=== PATIENT | male | born 1995 | race Caucasian/White ===

== ENCOUNTER 2020-04-03 22:45 | Emergency (ER) | payer OTHER, SELFPAY ==
--- NOTE | ~2020-04-03 | CT_ITS ---
EXAMINATION: CT abdomen pelvis wo con DATE: 04/03/2020 23:22 INDICATION: Left flank pain TECHNIQUE: Computed tomography (CT) of the abdomen and pelvis was performed without intravenous contr ast. The dose-length product (DLP) was 289.34 mGy-cm. Automated exposure control and iterative recons truction technique were employed. COMPARISON: None FINDINGS: The lung bases are clear. The heart size is normal. The liver, spleen, pancreas, gallbladde r, and adrenal glands are normal. There is a 3 mm stone in the urinary bladder. There is subtle left perinephric fat stranding. The right kidney is unremarkable. No pathologically enlarged abdominal or pelvic lymph nodes are identified. There is no free intraperitoneal gas or evidence of bowel obstruct ion. The appendix is normal. IMPRESSION: 1. 3 mm stone of the urinary bladder and subtle left perinephric fat stranding, consistent with recen t passage of left-sided stone. Reviewed, dictated and finalized at location A. IMPRESSION: 1. 3 mm stone of the urinary bladder and subtle left perinephric fat stranding, consistent with recent passage of left-sided stone.
[2020-04-03 22:47] VITALS: BP 161/101; PULSE 91; RESP 15; TEMP 36.9; O2SAT 100
--- NOTE | 2020-04-03 23:00 | ED.ABDPAIN ---
HPI - Abdominal Pain General Chief Complaint: Abdominal Pain Stated Complaint: Kidney Stone Time Seen by Provider: 04/03/20 22:58 History of Present Illness HPI narrative: Pt c/o flank pain, /, sharp, non radiating, started tonight. Pt states he has a h/o kidney stones. Denies abd pain, n/v/d or fever. Denies hematuria. Related Data Allergies Allergy/AdvReac Type Severity Reaction Status Date / Time No Known Allergies Allergy Unverified 01/19/19 10:23 Review of Systems Review of Systems: All systems reviewed & are unremarkable except as noted in HPI and below Constitutional: Constitutional: Denies body ache(s), Denies chills, Denies excessive sweating, Denies fatigue, Denies fever(s), Denies headache(s), Denies lethargy, Denies malaise, Denies weakness and Denies weight loss Eyes: Eyes: Denies blurry vision, Denies change in vision and Denies loss of vision ENT: Denies dizziness, Denies ear discharge, Denies headache(s), Denies lip swelling, Denies epistaxis, Denies nasal congestion, Denies neck pain, Denies throat swelling and Denies tongue swelling Cardiovascular: Cardiovascular: Denies chest pain, Denies chest pain at rest, Denies chest pain with activity, Denies diaphoresis, Denies rapid heart rate, Denies edema, Denies irregular heart rhythm, Denies lightheadedness, Denies palpitations, Denies dyspnea and Denies dyspnea on exertion Respiratory: Respiratory: Denies chest congestion, Denies cough, Denies hemoptysis, Denies dyspnea and Denies dyspnea on exertion Gastrointestinal: Gastrointestinal: Denies abdominal pain, Denies melena, Denies hematochezia, Denies diarrhea, Denies nausea, Denies vomiting and Denies hematemesis Musculoskeletal: Musculoskeletal: Denies abnormal gait, Denies deformity, Denies joint swelling, Denies limited range of motion, Denies neck pain and Denies numbness Neurologic: Denies Abnormal speech present, Denies abnormal gait, Denies confusion, Denies dizziness, Denies headache(s), Denies focal weakness, Denies loss of vision, Denies numbness, Denies Other visual disturbances, Denies Sensory deficit (Neuro) and Denies weakness Psychiatric: Psychiatric: Denies confusion, Denies depression, Denies auditory hallucinations, Denies homicidal ideation and Denies suicidal ideation Endocrine: Endocrine: Denies cold intolerance, Denies excessive sweating, Denies fatigue, Denies heat intolerance and Denies palpitations Hematologic/Lymphatic: Hematologic/Lymphatic: Denies easy bleeding and Denies easy bruising Allergic/Immunologic: Allergic/Immunologic: Denies lip swelling, Denies throat swelling and Denies tongue swelling [facility] Social History Social History Gender identity (if verbalized by the patient): Male Exam Const: General: cooperative, healthy appearing, comfortable, no acute distress, well developed, alert and awake; No confusion Orientation/consciousness: oriented to person, oriented to place, oriented to time, patient oriented x3 and No confusion Limitations: no limitations HENMT: Head: normal to inspection, normocephalic and atraumatic Ears: hearing grossly normal bilaterally, TM normal on the right and TM normal on the left General nose exam: Normal external nose present, Normal nares present and No nasal discharge present Face and sinus: normal facial exam Mouth: Yes Normal oral and palatal mucosa present, Yes lip normal, Yes tongue normal and Yes oropharynx normal Throat: posterior oropharynx normal, tonsils normal and uvula midline Eyes: General: appearance normal, both eyes and all related structures Pupils: Equal, round and reactive pupils present EOM: EOMs intact bilaterally Neck: Neck: normal visual inspection, full ROM, no lymphadenopathy and no meningeal signs Chest: Chest palpation & inspection: normal inspection of the chest Resp: Effort & Inspection: normal respiratory effort, able to speak in complete sentences, no respiratory distress and not tachypneic Auscultation: c
[2020-04-03] MEDS: SODIUM CHLORIDE 0.9% IV 1,000 ML 999 ML IV CONT (23:13)
[2020-04-03] MEDS: KETOROLAC 30 MG/ML VIAL (*BKC) IV PUSH (23:13)
[2020-04-03 23:16] LABS: Basophils Absolute Auto 0.1 K/mm3 (0.0-0.1); Basophils Percent Auto 0.6 % (0.2-1.2); Eosinophils Absolute Auto 0.1 K/mm3 (0-0.3); Eosinophils Percent Auto 0.8 % (0-4.4); Hemoglobin 13.9 g/dL (14.0-18.0); Immature Granulocyte Absolute 0.03 K/mm3 (0.00-0.031); Immature Granulocyte Percent A 0.3 % (0-0.5); Lymphocytes Absolute Auto 3.93 K/mm3 (0.9-3.2); Lymphocytes Percent Auto 38.9 % (18.3-44.2); Mean Corpuscular HGB Conc 34.8 g/dl (32-36); Mean Corpuscular Hemoglobin 29.3 pg (26-34); Mean Corpuscular Volume 84.2 fl (80-100); Mean Platelet Volume 10.2 fl (7.4-10.4); Monocytes Absolute Auto 0.8 K/mm3 (0.1-0.6); Monocytes Percent Auto 7.8 % (2.6-8.5); Neutrophils Absolute Auto 5.2 K/mm3 (1.3-6.7); Neutrophils Percent Auto 51.6 % (45.5-73.1); Platelet Count Result 257 k/mm3 (150-375); Red Blood Count 4.75 M/mm3 (4.6-6.20); Red Cell Distribution Width 11.8 % (11.5-14.5); White Blood Count 10.1 K/mm3 (4.5-10.0)
[2020-04-03 23:29] LABS: Alanine Aminotransferase 42 U/L (4-50); Albumin Level 4.6 g/dL (3.5-5.1); Alkaline Phosphatase 53 U/L (38-126); Anion Gap 9 mmol/L (8-16); Aspartate Amino Transferase 99 U/L (17-59); Bilirubin,Total 0.6 mg/dL (0.2-1.3); Blood Urea Nitrogen 19 mg/dL (9-20); Calcium 9.6 mg/dL (8.4-10.2); Carbon Dioxide 27 mmol/L (22-30); Chloride 102 mmol/L (98-107); Estimated Glomerular Filt Rate > 60; Glucose 109 mg/dL (75-110); Lipase 82 U/L (23-300); Potassium 3.3 mmol/L (3.4-5.0); Sodium 138 mmol/L (137-145)
[2020-04-03 23:46] VITALS: BP 100/67; PULSE 84; RESP 12; O2SAT 99
== END 2020-04-04 00:15 | disposition home or self-care (01) ==
PROVIDERS: Emergency Provider Emergency Medicine; PCP Internal Medicine
DX: R10.84 Generalized abdominal pain (principal); N13.9 Obstructive and reflux uropathy, unspecified
CPT/HCPCS: 36415; 74176; 80053; 83690; 85025; 96361; 96374; 99284; J1885; J7030

== ENCOUNTER 2021-12-31 17:30 | Emergency (ER) | payer OTHER, SELFPAY ==
--- NOTE | 2021-12-31 17:31 | ED.URI ---
HPI - URI/Sore Throat General Chief Complaint: Upper Respiratory Infection Stated Complaint: fever chills aches stuffy nose Time Seen by Provider: 12/31/21 17:31 Source: patient, family and RN notes reviewed History of Present Illness HPI Narrative: Patient is a 26-year-old male who presents the urgent care with his mother with complaints of fever, chills and stuffy nose. Patient states that started yesterday afternoon with fatigue. Patient has been taking Advil for the fevers but has not treated himself since 9 AM this morning. Patient also reports of a headache. States that his fianc?e in the home is also feeling ill but denies of any known exposures. Patient did attend a large wedding this weekend. Patient took a rapid COVID test at home, which was negative. Denies of sore throat, shortness of breath, nausea, vomiting. No other acute complaints. No acute distress noted. Patient aware of the plan of care. Some parts of this dictation were generated by voice recognition software and may contain typographical and/or grammatical inaccuracies. Related Data Home Medications Medication Instructions Recorded Confirmed No Home Medications 12/31/21 12/31/21 Allergies Allergy/AdvReac Type Severity Reaction Status Date / Time No Known Allergies Allergy Unverified 01/19/19 10:23 Review of Systems Review of Systems: CONSTITUTIONAL: Reports a fever and fatigue EYES: Denies visual changes, redness, or discharge. ENT: Reports of nasal congestion, rhinorrhea CARDIOVASCULAR: Denies chest pain, palpitations, or edema. RESPIRATORY: Denies cough or dyspnea. GASTROINTESTINAL: Denies abdominal pain, nausea, vomiting, or diarrhea. GENITOURINARY: Denies dysuria or hematuria. SKIN: Denies rash or itching. MUSCULOSKELETAL: Denies back pain, joint pain, or myalgia. NEUROLOGIC: Reports of headache All other systems reviewed are negative, except as documented in HPI. PMFSH Social History Social History Gender identity (if verbalized by the patient): Male Comments At the time of my signature, I reviewed and agree with the nursing past medical, surgical, social, and family history. There is no relevant family history pertinent to the patient complaint. Exam Narrative: GENERAL: This is a well-nourished, well-developed patient, in no apparent distress. HEAD: normocephalic, atraumatic. EYES: PERRL. Sclera clear/white. Vision is grossly intact. EARS: External ears normal, auditory canals clear and without drainage, TMs normal without perforation. Hearing grossly intact. NOSE: External nose normal with no obvious nasal discharge. Mild bilateral erythemic nares with clear to yellow rhinorrhea THROAT: Mucous membranes moist, posterior pharynx clear. Moderate postnasal drainage. NECK: Neck supple, non-tender without lymphadenopathy CARDIOVASCULAR: Regular rate and rhythm without murmurs, gallops, or rubs. RESPIRATORY: Clear to auscultation. Breath sounds equal bilaterally. No wheezes, rales, or rhonchi. SKIN: warm, intact with no suspicious lesions or rash, good texture and turgor. NEURO: awake, alert, and oriented to person, place and time. There were no obvious focal neurologic abnormalities. EXTREMITIES: No clubbing, cyanosis, or edema. Course Course Level of Care: Express Care Visit Vital Signs Vital signs: Vital Signs Temperature 101.8 F H 12/31/21 17:36 Pulse Rate 120 H 12/31/21 17:36 Respiratory Rate 18 12/31/21 17:36 Blood Pressure 102/77 12/31/21 17:36 Pulse Oximetry 100 12/31/21 17:36 Temperature 101.8 F H 12/31/21 17:36 Pulse Rate 120 H 12/31/21 17:36 Respiratory Rate 18 12/31/21 17:36 Blood Pressure 102/77 12/31/21 17:36 Pulse Oximetry 100 12/31/21 17:36 Reviewed MDM - URI/Sore Throat MDM Narrative Medical decision making narrative: Reviewed lab results with the patient. He is aware that flu swab was negative. Considering you just took a rapid COVID test that was negative, erika
[2021-12-31 17:36] VITALS: BP 102/77; PULSE 120; RESP 18; TEMP 38.8; O2SAT 100
[2021-12-31 21:00] LABS: SARS-CoV-2 RNA PCR Positive
== END 2021-12-31 18:08 | disposition home or self-care (01) ==
PROVIDERS: Emergency Provider Nurse Practitioner Family; PCP Internal Medicine
DX: Z20.822 Contact with and (suspected) exposure to COVID-19 (principal)
CPT/HCPCS: 87804; 99212; 99213; C9803; G0463; U0003; U0005

== ENCOUNTER 2022-11-13 08:16 | Emergency (ER) | payer OTHER, SELFPAY ==
--- NOTE | ~2022-11-13 | XR_ITS ---
EXAMINATION: XR abdomen/kub 1V DATE: 11/13/2022 10:02 INDICATION: Right groin pain TECHNIQUE: A supine view of the abdomen was obtained. COMPARISON: None. FINDINGS: No suspicious calcifications suspicious for urolithiasis in the abdomen or pelvis. Small amount of ga s scattered throughout primarily colon with no dilated loops of gas-filled bowel to suggest obstructi on. There is bilateral decreased femoral head neck offset. IMPRESSION: 1. Normal bowel gas pattern with no calcific lesions suspicious for urolithiasis. 2. Bilateral decreased femoral head neck offset offset which could predispose towards cam-type femora l acetabular impingement. Reviewed, dictated and finalized at location B. IMPRESSION: 1. Normal bowel gas pattern with no calcific lesions suspicious for urolithiasi s. 2. Bilateral decreased femoral head neck offset offset which could predispose t owards cam-type femoral acetabular impingement.
[2022-11-13 08:17] VITALS: BP 136/77; PULSE 97; RESP 18; TEMP 36.3; O2SAT 100
[2022-11-13 09:48] LABS: Appearance Urine Clear (Clear); Bacteria Urine None Seen /hpf; Bilirubin Urine Negative (Negative); Blood Urine 3+ (Negative); Color Urine Yellow (Yellow); Glucose Urine UA Negative (Negative); Ketones Urine Trace mg/dL (Negative); Leukocyte Esterase Ur Negative LEU/UL (Negative); Nitrate Urine Negative (Negative); Non Pathogenic Casts 0-2; Protein Urine Trace mg/dL (Negative); RBC Urine 51-100 /hpf (0-2); Specific Grav Ur 1.024 (1.001-1.035); Squamous Epithelial Cell Urine None seen /hpf (Few); WBC Urine 0-5 /hpf
[2022-11-13 09:59] LABS: Add Urine Microscopic? YES
--- NOTE | 2022-11-13 11:17 | ED.MALEGU ---
HPI - Male Genitourinary General Chief complaint: Urogenital-Male Stated complaint: right sided flank pain Time Seen by Provider: 11/13/22 08:18 History of Present Illness HPI Narrative: Patient is a 27-year-old male who presents ER with right-sided flank pain. Has history of potential kidney stones. Started earlier this morning after about an hour pain increased. He began having cramping in his lower abdomen. No hematuria or dysuria. No fevers or chills but did have some nausea. Symptoms resolved upon arrival here. Related Data Allergies Allergy/AdvReac Type Severity Reaction Status Date / Time No Known Allergies Allergy Verified 11/13/22 08:17 Review of Systems Constitutional: Constitutional: Denies chills, Denies fatigue and Denies fever(s) Gastrointestinal: Gastrointestinal: Reports abdominal pain, Denies diarrhea, Reports nausea and Denies vomiting Genitourinary: Genitourinary: Denies hematuria, Denies dysuria, Denies testicular pain and Reports urinary frequency PMFSH Social History Social History Gender identity (if verbalized by the patient): Male Exam Narrative: GENERAL: Well-appearing, well-nourished, and in no acute distress. HEAD: Normocephalic, atraumatic. ENT: Mucous membranes moist. CHEST: Clear to auscultation. No respiratory distress. HEART: Regular rate and rhythm. Normal peripheral pulses. ABDOMEN: Soft, nontender, nondistended. EXTREMITIES: Normal range of motion. No edema. SKIN: Warm, dry, no rash. NEURO: Alert and oriented x3. PSYCH: Normal mood and affect. Course Course Emergency Course: No stone on KUB. Urine with blood. Discussed CT imaging versus conservative management at home and patient opted for conservative management. Vital Signs Vital signs: Vital Signs Temperature 97.4 F L 11/13/22 08:17 Pulse Rate 97 11/13/22 08:17 Respiratory Rate 18 11/13/22 08:17 Blood Pressure 136/77 11/13/22 08:17 Pulse Oximetry 100 11/13/22 08:17 Oxygen Delivery Room Air 11/13/22 08:17 Temperature 97.4 F L 11/13/22 08:17 Pulse Rate 97 11/13/22 08:17 Respiratory Rate 18 11/13/22 08:17 Blood Pressure 136/77 11/13/22 08:17 Pulse Oximetry 100 11/13/22 08:17 Oxygen Delivery Room Air 11/13/22 08:17 MDM - Male Genitourinary Lab Data Labs: Lab Results 11/13/22 Range/Units 09:32 Urine Color Yellow (Yellow) Urine Appearance Clear (Clear) Urine pH 6.0 (5.0-9.0) Ur Specific Rippey 1.024 (1.001-1.035) Urine Protein Trace (Negative) mg/dL Urine Glucose (UA) Negative (Negative) mg/dL Urine Ketones Trace H (Negative) mg/dL Ur Blood (Man) 3+ H (Negative) Urine Nitrate Negative (Negative) Urine Bilirubin Negative (Negative) Urine Urobilinogen 1.0 (<2.0) mg/dL Leukocyte Esterase Rfl Negative (Negative) MAGDALENO/UL Urine RBC 51-100 (0-2) /hpf Urine WBC 0-5 /hpf Ur Squamous Epith Cells None seen (Few) /hpf Urine Bacteria None seen /hpf Urine Casts 0-2 Imaging Data Radiologist's impression: ITS Impressions Abdomen X-Ray 11/13/22 10:15 IMPRESSION: 1. Normal bowel gas pattern with no calcific lesions suspicious for urolithiasis. 2. Bilateral decreased femoral head neck offset offset which could predispose towards cam-type femoral acetabular impingement. Discharge Plan Discharge Clinical Impression: Kidney stone Patient Disposition: Home, Self-Care Condition: Stable Instructions: Kidney Stones (ED), How to Strain Your Urine (ED) Additional Instructions: It is felt that you have passed a small kidney stone causing your pain. You are being provided supportive medications for when you have this discomfort at home. Recommend follow-up with urology. Return to the ER if you have severe worsening pain, you cannot keep down food/water/medication, or you have additional concerns. Prescriptions: New hydrocodone-acetaminophen 5-325 mg tablet 1 tab
== END 2022-11-13 11:49 | disposition home or self-care (01) ==
PROVIDERS: Emergency Provider Emergency Medicine; PCP Internal Medicine; Referring Provider Urology
DX: N20.0 Calculus of kidney (principal); R93.7 Abnormal findings on diagnostic imaging of other parts of musculoskeletal system
CPT/HCPCS: 74018; 81001; 99283

== ENCOUNTER 2023-10-20 00:42 | Emergency (ER) | payer OTHER, SELFPAY ==
--- NOTE | ~2023-10-20 | CT_ITS ---
CT of the Abdomen and Pelvis: Indication: Abdominal pain Technique: 2.5 mm axial scans were obtained through the abdomen and pelvis following intravenous adm inistration of 100 cc of Omnipaque 350. Dose reduction technique was used on this scan by utilizing a utomated exposure control and iterative reconstruction technique. The dose-length product (DLP) was 6 71.48 mGy-cm. Findings: Scans through the lung bases are unremarkable. The liver, spleen, pancreas, gallbladder, adrenals and kidneys are within normal limits. No evidence of aortic aneurysm. No lymphadenopathy. Persistent left IVC noted. No bowel obstruction or bowel wall thickening. There is no evidence to suggest acute appendicitis. Images through the pelvis were performed. There is a 2 mm stone at the right UVJ. No pelvic mass seen . No ascites. Impression: 2 mm stone at the right UVJ. No significant hydronephrosis. Reviewed, dictated and finalized at [facility]. Impression: 2 mm stone at the right UVJ. No significant hydronephrosis.
[2023-10-20 00:45] VITALS: BP 124/82; PULSE 62; RESP 18; TEMP 37.2; O2SAT 100
[2023-10-20] MEDS: SODIUM CHLORIDE 0.9% IV 1,000 ML 999 ML IV CONT (01:23)
[2023-10-20 01:31] LABS: Basophils Percent Auto 0.7 % (0.2-1.2); Eosinophils Absolute Auto 0.1 K/mm3 (0-0.3); Eosinophils Percent Auto 1.5 % (0-4.4); Hemoglobin 12.8 g/dL (14.0-18.0); Immature Granulocyte Absolute 0.01 K/mm3 (0.00-0.031); Immature Granulocyte Percent A 0.2 % (0-0.5); Lymphocytes Absolute Auto 2.41 K/mm3 (0.9-3.2); Lymphocytes Percent Auto 40.3 % (18.3-44.2); Mean Corpuscular HGB Conc 33.7 g/dl (32-36); Mean Corpuscular Hemoglobin 29.2 pg (26-34); Mean Corpuscular Volume 86.8 fl (80-100); Mean Platelet Volume 10.1 fl (7.4-10.4); Monocytes Absolute Auto 0.5 K/mm3 (0.1-0.6); Monocytes Percent Auto 7.9 % (2.6-8.5); Neutrophils Percent Auto 49.4 % (45.5-73.1); Platelet Count Result 217 k/mm3 (150-375); Red Blood Count 4.38 M/mm3 (4.6-6.20)
--- NOTE | 2023-10-20 01:39 | ED.GENADULT ---
HPI - General Adult General Chief complaint: Abdominal Pain Stated complaint: abd pain Time Seen by Provider: 10/20/23 00:59 History of Present Illness HPI narrative: The patient is a 28-year-old gentleman who presents emergency department with chief complaint of abdominal pain and constipation patient reports that he has pain in the lower abdomen radiates to his back patient reports he has prior history of kidney stones Related Data Allergies Allergy/AdvReac Type Severity Reaction Status Date / Time No Known Allergies Allergy Verified 11/13/22 08:17 Review of Systems Review of Systems: A 10 system review of systems was completed on the patient and is negative except for what is stated in the HPI. Nursing and ancillary documentation was reviewed. [facility] Social History Social History Gender identity (if verbalized by the patient): Male Exam Narrative: GENERAL: Well-appearing, well-nourished, and in no acute distress. HEAD: Normocephalic, atraumatic. EYES: PERRLA and EOMI. ENT: Nares clear, no rhinorrhea or epistaxis. Mucous membranes moist. NECK: Supple. CHEST: Clear to auscultation. No respiratory distress. HEART: Regular rate and rhythm. No murmur heard. Normal peripheral pulses. ABDOMEN: Soft, nontender, nondistended, normal active bowel sounds. EXTREMITIES: Normal range of motion. No edema. SKIN: Warm, dry, no rash. NEURO: No focal deficits. Alert and oriented x3. PSYCH: Normal mood and affect. Course Vital Signs Vital signs: Vital Signs Temperature 37.2 C 10/20/23 00:45 Pulse Rate 62 10/20/23 00:45 Respiratory Rate 18 10/20/23 00:45 Blood Pressure 124/82 10/20/23 00:45 Pulse Oximetry 100 10/20/23 00:45 Oxygen Delivery Room Air 10/20/23 00:45 Temperature 37.2 C 10/20/23 00:45 Pulse Rate 62 10/20/23 00:45 Respiratory Rate 18 10/20/23 00:45 Blood Pressure 124/82 10/20/23 00:45 Pulse Oximetry 100 10/20/23 00:45 Oxygen Delivery Room Air 10/20/23 00:45 Medical Decision Making [facility] Narrative Medical decision making narrative: Differential diagnosis includes ureterolithiasis, UTI, intra-abdominal infection, bowel obstruction Laboratory studies were obtained on the patient showed a white count 6.0 electrolytes are within normal limits urinalysis showed 11-[address] scan of the abdomen pelvis showed a 2 mm calculi in the right ureter orifice causing hydroureteronephrosis Vital Signs Vital Signs: Vital Signs Temperature 37.2 C 10/20/23 00:45 Pulse Rate 62 10/20/23 00:45 Respiratory Rate 18 10/20/23 00:45 Blood Pressure 124/82 10/20/23 00:45 Pulse Oximetry 100 10/20/23 00:45 Oxygen Delivery Room Air 10/20/23 00:45 Temperature 37.2 C 10/20/23 00:45 Pulse Rate 62 10/20/23 00:45 Respiratory Rate 18 10/20/23 00:45 Blood Pressure 124/82 10/20/23 00:45 Pulse Oximetry 100 10/20/23 00:45 Oxygen Delivery Room Air 10/20/23 00:45 Lab Data 10/20/23 01:25 10/20/23 01:25 Labs: Lab Results 10/20/23 10/20/23 Range/Units 01:25 02:27 WBC 6.0 (4.5-10.0) K/mm3 RBC 4.38 L (4.6-6.20) M/mm3 Hgb 12.8 L (14.0-18.0) g/dL Hct 38.0 L (42.0-52.0) % MCV 86.8 (80-100) fl MCH 29.2 (26-34) pg MCHC 33.7 (32-36) g/dl RDW 12.0 (11.5-14.5) % Plt Count 217 (150-375) k/mm3 MPV 10.1 (7.4-10.4) fl Immature Gran % (Auto) 0.2 (0-0.5) % Neut % (Auto) 49.4 (45.5-73.1) % Lymph % (Auto) 40.3 (18.3-44.2) % Grand % (Auto) 7.9 (2.6-8.5) % Eos % (Auto) 1.5 (0-4.4) % Baso % (Auto) 0.7 (0.2-1.2) % Lymph # (Auto) 2.41 (0.9-3.2) K/mm3 Grand # (Auto) 0.5 (0.1-0.6) K/mm3 Eos # (Auto) 0.1 (0-0.3) K/mm3 Baso # (Auto) 0.0 (0.0-0.1) K/mm3 Abs Immat Gran (auto) 0.01 (0.00-0.031) K/mm3 Absolute Neuts (auto) 3.0 (1.3-6.7) K/mm3 Absolute Nucleated RBC
[2023-10-20 01:41] LABS: Alanine Aminotransferase 17 U/L (6-50); Albumin Level 4.6 g/dL (3.5-5.1); Alkaline Phosphatase 51 U/L (38-126); Anion Gap 5 mmol/L (4-12); Aspartate Amino Transferase 24 U/L (17-59); Bilirubin,Total 0.9 mg/dL (0.2-1.3); Blood Urea Nitrogen 15 mg/dL (9-20); Calcium 9.6 mg/dL (8.4-10.2); Carbon Dioxide 27 mmol/L (22-30); Chloride 107 mmol/L (98-107); Estimated CRCL calculation 122 ml/min; Estimated Glomerular Filt Rate > 60; Glucose 100 mg/dL (65-110); Lipase 54 U/L (23-300); Potassium 3.6 mmol/L (3.4-5.0); Sodium 139 mmol/L (137-145)
[2023-10-20 02:42] LABS: Appearance Urine Clear (Clear); Bacteria Urine None Seen /hpf; Bilirubin Urine Negative (Negative); Blood Urine 2+ (Negative); Color Urine Yellow (Yellow); Glucose Urine UA Negative (Negative); Ketones Urine Negative (Negative); Leukocyte Esterase Ur Negative LEU/UL (Negative); Nitrate Urine Negative (Negative); Non Pathogenic Casts 0-2; Protein Urine Negative (Negative); Specific Grav Ur 1.024 (1.001-1.035); Squamous Epithelial Cell Urine None Seen /hpf (Few); Urobilinogen Urine 0.2 mg/dL (<2.0); WBC Urine 0-5 /hpf (0-3)
[2023-10-20 02:46] LABS: Add Urine Microscopic? YES
[2023-10-20] MEDS: TAMSULOSIN HCL 0.4 MG CAPSULE PO (04:32)
[2023-10-20] MEDS: HYDROcodone/acetaminophen (*CRX) 5-325 MG TABLET 1 TAB PO (04:33)
[2023-10-20] MEDS: ONDANSETRON INJ 4 MG/2 ML VIAL IV PUSH (04:42)
[2023-10-20 04:45] VITALS: BP 121/78; PULSE 55; RESP 14; O2SAT 98
== END 2023-10-20 04:49 | disposition home or self-care (01) ==
PROVIDERS: Emergency Provider Emergency Medicine; PCP Internal Medicine
DX: N20.1 Calculus of ureter (principal)
CPT/HCPCS: 36415; 74177; 80053; 81001; 83690; 85025; 96361; 96374; 99284; A9270; J2405; J7030; Q9967

== ENCOUNTER 2024-03-06 00:18 | Day surgery (SDC) | payer OTHER, SELFPAY ==
[2024-02-16 12:57] VITALS: BMI 28.3
[2024-03-06 10:08] VITALS: BP 107/66; PULSE 66; RESP 18; TEMP 36.1; O2SAT 100
[2024-03-06] MEDS: LACTATED RINGERS 1,000 ML 150 ML IV CONT (10:17)
--- NOTE | 2024-03-06 10:30 | P.PNAN_ITS ---
Anes - Initial Pre Proc Eval Procedure: Operation Date: 03/06/24 12:30 Proposed Procedures p Colonoscopy - Eddie Rodriguez MD Date/Time: 03/06/24 10:30 Surgeon: Eddie Rodriguez MD Pre Op Diagnosis: Unspecified abdominal pain, change in bowel habit Patient Data Age: 29 Gender: M Height: 1.88 m Weight: 95.3 kg Last Vital Signs Temp 97 F L 03/06/24 10:08 Pulse 66 03/06/24 10:08 Resp 18 03/06/24 10:08 BP 107/66 03/06/24 10:08 Pulse Ox 100 03/06/24 10:08 O2 Del Method Room Air 03/06/24 10:08 Allergies Allergy/AdvReac Type Severity Reaction Status Date / Time No Known Allergies Allergy Verified 03/06/24 10:07 Home Medications Medication Instructions Recorded Confirmed Type alfuzosin 10 mg tablet,extended 10 mg PO HS 02/16/24 03/06/24 History release 24 hr Patient hx anesthesia problems: none Family hx anesthesia problems: none Results Review: All pre-operative results and documents have been reviewed as part of the pre- operative evaluation. [facility] Social History Social History Smoking status: Never smoker Alcohol intake: never Substance use: never Substance use type: does not use Living arrangements: with family Gender identity (if verbalized by the patient): Male Spiritual care concerns: No Anes - Eval Final PreProcedure Day of Procedure 03/06/24 10:30 Patient weight: normal Heart: regular rate and rhythm Lungs: clear to auscultation Airway: Mallampati scale class II Neurological: alert and oriented Last oral intake: >/= 8 hours ASA classification: II Emergent: no Anesthetic plan: proceed Anesthesia type and monitoring: general GIVS and standard monitoring Results Review: All pre-operative results and documents have been reviewed as part of the pre- operative evaluation. Informed Consent: The patient's anesthetic plan and its attendant risks and benefits were discussed with the patient/family/POA. Questions were solicited and answers provided to the satisfaction of the patient/family/POA.
--- NOTE | 2024-03-06 10:54 | PM.HPGS ---
History of Present Illness History of Present Illness Consent: Risks, benefits, and alternatives have been discussed and questions answered. Patient agrees to proceed with procedure. Chief complaint: Unspecified abdominal pain, change in bowel habit Narrative: Bhupendra Parikh is a 29 year old male with change bowel habit last few months, never had colonoscopy Review of Systems Review of Systems: All systems reviewed & are unremarkable except as noted in HPI and below PMFSH Social History Social History Smoking status: Never smoker Alcohol intake: never Substance use: never Substance use type: does not use Living arrangements: with family Gender identity (if verbalized by the patient): Male Spiritual care concerns: No Meds Home Medications and Allergies Home Medications Medication Instructions Recorded Confirmed Type alfuzosin 10 mg tablet,extended 10 mg PO HS 02/16/24 03/06/24 History release 24 hr Allergies Allergy/AdvReac Type Severity Reaction Status Date / Time No Known Allergies Allergy Verified 03/06/24 10:07 Vital Signs Vital Signs - 24 hr 03/06/24 10:08 Temperature 97 F L Pulse Rate 66 Respiratory Rate 18 Blood Pressure 107/66 Pulse Oximetry 100 Oxygen Delivery Room Air Exam Const: General: comfortable and no acute distress HENMT: Face/Nose/Sinus: Normal nares present Eyes: General: appearance normal, both eyes and all related structures Neck: Neck: no JVD Resp: Auscultation: clear to auscultation bilaterally Cardio: Rate: regular rate Rhythm: regular rhythm GI: Inspection: non-distended GI Palp: Yes Soft to palpation Skin: General skin exam: normal color Neuro: General: gait normal Speech: normal speech Extrem: General: normal to inspection Psych: Mental Status: mental status grossly normal Assessment and Plan Assessment and plan (1) Change in bowel habits: Code(s): R19.4 - Change in bowel habit Status: Acute Assessment and Plan: colonoscopy
[2024-03-06 11:09] VITALS: BP 109/68; PULSE 81; RESP 18; O2SAT 99
[2024-03-06 11:19] VITALS: BP 99/66; PULSE 87; RESP 18; O2SAT 98
[2024-03-06 11:29] VITALS: BP 100/57; PULSE 70; RESP 22; O2SAT 100
== END 2024-03-06 11:40 | disposition home or self-care (01) ==
PROVIDERS: PCP Internal Medicine; Referring Provider Nurse Practitioner; Visit Provider Internal Medicine Gastroenterology
PROC: 0DJD8ZZ Inspection of Lower Intestinal Tract, Via Natural or Artificial Opening Endoscopic (ICD-10-PCS; CPT 45378; principal; 2024-03-06 12:30)
DX: K64.8 Other hemorrhoids (principal)
CPT/HCPCS: 45380; 88305; J2704; J7120

== ENCOUNTER 2024-11-18 16:31 | Emergency (ER) | payer OTHER, SELFPAY ==
[2024-11-18] VITALS (9 sets, daily range): BP systolic 114–134; BP diastolic 73–86; PULSE 73–95; RESP 10–20; TEMP 36.5; O2SAT 91–100
--- NOTE | ~2024-11-18 | CT_ITS ---
CT abdomen pelvis wo con Ordering provider: Lesly Galvan PA-C History: 29 years Male with . LLQ pain . Comparison: None. Technique: CT abdomen and pelvis without IV and without oral contrast. Automated exposure control and iterative reconstruction technique were employed. The dose-length product was 285.31 mGy-cm. Findings: VISUALIZED LOWER CHEST: Normal. UPPER ABDOMINAL ORGANS: Liver: Normal. Gallbladder: Possible tiny stone in the neck of the gallbladder. Ultrasound evaluation advised. Spleen: Normal. Stomach/duodenum: Normal. Pancreas: Normal. Adrenals: Normal. Kidneys: Stone in the left lower ureter is seen measuring 3 mm. Mild fullness of the left ureter and renal pelvis is noted. Tiny stone in the right kidney midpole. Tiny stone in the left kidney midpole. PELVIC ORGANS: The bladder is normal. BOWEL AND MESENTERY: Colon: No evidence of diverticulitis.. Normal appendix. Small Bowel: Normal. No obstruction. Peritoneum/mesentery: No free air or free fluid. No mesenteric lymphadenopathy. Small mesenteric lymp h nodes RETROPERITONEUM: Normal aorta. No retroperitoneal lymphadenopathy. MUSCULOSKELETAL: Superficial soft tissues: The superficial soft tissues are normal. Bones: Normal spine. IMPRESSION: 1. Highly suggestive tiny stone in the left lower ureter with mild left ureter fullness. Follow-up and clinical correlation advised. 2. Bilateral tiny kidney stones. 3. No evidence of appendicitis, diverticulitis or intestinal obstruction. Reviewed, dictated and finalized at location A. IMPRESSION: 1. Highly suggestive tiny stone in the left lower ureter with mild left urete r fullness. Follow-up and clinical correlation advised. 2. Bilateral tiny kidney stones. 3. No evidence of appendicitis, diverticulitis or intestinal obstruction.
--- OUTSIDE RECORDS SUMMARY | 2024-11-18 16:33 | XMS_ITS | Clinical Summary ---
Author Organization [facility] Address [address] [id number] Phone Care Team Providers Care Cane Piler Name Role Phone Unavailable Primary Care Provider Unavailabl e Encounters Date Type Department Care Team Description 08/30/2024 External Device Data [facility] ABSTRACTION Provider, Abstract from Last 3 Months Social History Tobacco Use Types Packs/Day Years Used Date Smoking Tobacco: Never Assessed Sex and Gender Information Value Date Recorded Sex Assigned at Not on file Legal Sex Male 12:22 PM CDT Gender Identity Not on file Sexual Orientation Not on file Plan of Treatment Health Maintenance Due Date Last Done Comments DTAP/TDAP/TD VACCINES (1 - Tdap) 01/10/2012 HEPATITIS B VACCINES (1 of 3 - 19+ 3-dose series) 01/10/2012 INFLUENZA VACCINE (#1) 2024 04/20/2018 HPV VACCINES Aged Out No longer eligi ble based on patient's age to complete this topic Insurance [employer] [facility] OPEN ACCESS
--- OUTSIDE RECORDS SUMMARY | 2024-11-18 16:33 | XMS_ITS | Clinical Summary ---
Author Organization [facility] Address [address] [place] [address] Phone Care Team Providers Care Customer Success Representative Name Role Phone Boy Cano MD Primary Care Provider [phone] Kevin Javier MD Unavailable Allergies No known active allergies Family History Medical History Relation Name Comments Kidney Stones Father Relation Name Status Comments Father Social History Tobacco Use Types Packs/Day Years Used Date Smoking Tobacco: Never Smokeless Tobacco: Never Alcohol Use Standard Drinks/Week Comments Yes 0 (1 standard drink = 0.6 oz pur e alcohol) occastional Sex and Gender Information Value Date Recorded Sex Assigned at Not on file Legal Sex Male 9:18 AM CDT Gender Identity Not on file Sexual Orientation Not on file Last Filed Vital Signs Vital Sign Reading Time Taken Comments Blood Pressure 131/79 08/18/2023 8:32 AM [employer] Pulse 83 08/18/2023 8:32 AM [employer] Temperature 36.6 C (97.9 F) 08/18/2023 8:32 AM [employer] Respiratory Rate 14 08/18/2023 8:32 AM [employer] Oxygen Saturation 98% 08/18/2023 8:32 AM [employer] Inhaled Oxygen Concentration - - Weight 101.3 kg (223 lb 6.4 oz) 08/18/2023 8:32 AM [employer] Height 188 cm (6' 2 ) 08/18/2023 8:32 AM [employer] Body Mass Index 28.68 08/18/2023 8:32 AM [employer] Plan of Treatment Health Maintenance Due Date Last Done Comments Hepatitis C Virus (HCV) Screening 1993 Hepatitis B Immunization (3 of 3 - 3-dose series) 1993 1993, 1993 Influenza Immunization (#1) 2024 SARS-COV-2 Immunization ( season) 2024 11/22/2020, 11/01/2020 Respiratory Syncytial Virus (RSV) Immunization (Adult) (1 - 1-dose 75+ series) 01/10/2068 Meningococcal Immunization (ACWY) Aged Out 04/11/2005 No longer eligible based on patient's age to complete this topic DTaP/Tdap/Td Immunization Discontinued 2006, 03/03/2003, 11/22/1997, Additional history exists TdaP Immunization Completed 01/11/2007 Pneumococcal Immunization Combined Aged Out No longer eligible based on patient's age to complete this topic Rotavirus Immunization Aged Out No lo nger eligible based on patient's age to complete this topic Insurance Via Care Teams Customer Success Representative Relationship Specialty Start Date End Date Boy Cano MD [address] [place] [address] [address] [place] [address] PCP - General Internal Medicine 08/18/23 Kevin Javier MD [address] [address] Consulting Physician Urological Surgery 08/18/23
--- OUTSIDE RECORDS SUMMARY | 2024-11-18 16:33 | XMS_ITS | Data Portability ---
Author Organization MD - [facility], Main Office Address [address] [place] [address] Assessment No assessment recorded. Plan of Treatment Reminders Order Date Submit Date Provider Last Modified By Organization Details Last Modified Time Details Appointments None recorded. Lab CMP, serum or plasma 2024 025 [email or web address] [facility], [address], [place], [address], 5 16:15:18 CBC w/ auto diff 2024 025 [email or web address] [facility], [address], [place], [address], 5 16:15:18 lipid panel, serum 2024 025 [email or web address] [facility], [address], [place], [address], 5 16:15:18 T4, free, serum 2024 025 [email or web address] [facility], [address], [place], [address], 5 16:15:18 TSH, serum or plasma 2024 025 [email or web address] [facility], [address], [place], [address], 5 16:15:18 pancreatic elastase, stool 2023 024 [id number] [facility], [address], [place], [address], 4 10:08:25 CBC w/ auto diff 2023 024 [email or web address] [facility], [address], [place], [address], 4 10:08:26 inflammator y bowel disease Ab panel, serum 2023 024 [email or web address] [facility], [address], [place], [address], 4 03:31:58 C-reactive protein, quantitativ e, serum or plasma 2023 024 [email or web address] [facility], [address], [place], [address], 4 03:32:01 lipid panel, serum 2023 024 [email or web address] [facility], [address], [place], [address], 4 03:31:56 CMP, serum or plasma 2023 024 [email or web address] [facility], [address], [place], [address], 4 03:31:59 TSH, serum or plasma 2023 024 [facility], [address], [place], [address], 4 10:08:26 T4, free, serum 2023 024 [id number] [facility], [address], [place], [address], 4 10:08:26 testosteron e, total, serum 2022 023 [facility], [address], [place], [address], 3 11:09:41 urinalysis, dipstick 2022 023 [email or web address] 9 [facility], [address], [address], 3 09:39:57 urinalysis, dipstick 2022 023 [email or web address] 9 [facility], [address] [facility] [address], [address], 3 09:45:02 Referral None recorded. Procedures None recorded. Surgeries None recorded. Imaging US, bladder 2022 023 [email or web address] [facility], [address] [facility], [address], 3 09:40:20 US, bladder 2022 023 [id number] 9 [facility], [address] [facility] [address], [address], 3 09:45:02 Medication Orders tadalafil 5 mg tablet 2022 023 [id number], [address] [place], [place], [id number], 4 16:22:21 Augmentin 875 mg-125 mg tablet 2022 023 [id number], [address] [place], [place], [id number], 4 16:22:18 Augmentin 875 mg-125 mg tablet 2022 023 [email or web address] [facility], [address] [place], [place], [id number], 4 16:22:18 Patient TargetsNo targets recorded. Patient Instructions Encounter Date Encounter Id Patient Instructions Last Modified By Organization Details Last Modified Time 09/28/2023 [id number] risk assessment* [email or web address] Not availabl e 09/28/2023 16:49:56 INFLUENZA VACCIN E TD/TDAP Recommended today, patient declined Ordered P atient will get at local pharmacy/health department COLORECTAL SCREENING DEPRESSION SCREENING Negative BMI Overweight continue your current weight loss efforts try to lose 5% of your body weight try to lose 10% of your body weight NUTRITION PHYSICAL ACTIVITY Need more activity VISION ALCOHOL USE No alcohol use Occasional/Soc ial Use TOBACCO USE non smoker SEXUALLY ACTIVE GLUCOSE SCREENING LIPID SCREENING [email or web address] Not available 09/28/2023 16:29:13 Adult health examination risk assessment stable. Does have the abnormal digestive tract function etiology which is somewhat obscure. Will check a CBC, CMP, lipid and thyroid. Also check a stool for pancreatic elastase. Also check inflammatory bowel panels. Set up with GI for further diagnostic evaluation possible colonoscopy. Portions of the record may have been created with voice recognition software. Occasional wrong-word or [id number] substitutions may have occurred due to the inherent limitations of voice recognition software. Read the chart carefully and recognize, using context, where substitutions have occurred. Set up with GI for evaluation of altered bowel function including some small amount of rectal bleeding. [email or web address] Not available 09/28/2023 16:49:31 04/13/2024 [id number] Follow-up for dyspepsia as well as increased urinary frequency all doing well. No need for additional blood work at this time. Consider possible GI referral. Follow Up: 6 Months Approximate Date: 10/10/2024 Portions of the record may have been created with voice recognition software. Occasional wrong-word or qtzrk-[id number] substitutions may have occurred due to the inherent limitations of voice recognition software. Read the chart carefully and recognize, using context, where substitutions have occurred. [email or web address] Not available 04/13/2024 17:22:35 10/17/2024 [id number] Wellness evaluation risk assessment table. Follow-up for increased urinary frequency and BPH and currently on medications per Urology and doing well. Previous history of renal calculus in the past all doing well at this time. No interval complaints. Will check some baseline blood work including a CBC, CMP, lipid, thyroid. Otherwise doing well follow-up in one year. Follow Up: 1 Year Approximate Date: 10/17/2025 Portions of record are template driven. When necessary additional context will be provided. Additionally some portions have been created with voice recognition software. Occasional wrong-word or qsjzk-[id number] substitutions may have occurred due to the inherent limitations of voice recognition software. Read the chart carefully and recognize, using context, where substitutions may have occurred. Created: Boy Cano M.D. 10.17.2024 04:19 PM [email or web address] Not available 10/17/2024 17:19:35 Reason for Referral None Reported. Results Created Date Observation Date Name Description Value Unit Range Abnormal Flag Note LastModifiedBy Organization Detail LastModifiedTime 01/26/2001/25/2023 urina lysis , dipst ick Leukocytes (reference range: negative ugo/ l) Negati ve Not Available [facility] [address] [facility] [address], [address], 01/25/2023 08:42:26 01/26/20 23 01/25/2023 urina lysis , dipst ick Nitrite (reference rage: negative mg/dl) negati ve Not Available [facility] [address] [facility] [address], [place], [address], 01/25/2023 08:42:26 01/26/20 23 01/25/2023 urina lysis , dipst ick Urobilinogen (reference range: 0.2-1 mg/dl) 0.2 Not Available [facility] [address] [facility] [address], [place], [address], 01/25/2023 08:42:26 01/26/20 23 01/25/2023 urina lysis , dipst ick Protein (reference range: negative mg/dl) Negati ve Not Available [facility] [address], [place], [address], 01/25/2023 08:42:26 01/26/20 23 01/25/2023 urina lysis , dipst ick pH (reference range: 5-7) 5.5 Not Available s_ [facility] [address] [place] [address] [address], [place], [address], 01/25/2023 08:42:26 01/26/20 23 01/25/2023 urina lysis , dipst ick Blood (reference range: negative Taz/ l) Negati ve Not Available [facility] [address] [place] [address] [address], [place], [address], 01/25/2023 08:42:26 01/26/20 23 01/25/2023 urina lysis , dipst ick Specific [place] (reference range: 1.005-1.030) 1.030 Not Available s [facility] [address] [place] [address] [address], [place], [address], 01/25/2023 08:42:26 01/26/20 23 01/25/2023 urina lysis , dipst ick Ketone (reference range: negative mg/dl) Negati ve Not Available [facility] [address] [place] [address] [address], [place], [address], 01/25/2023 08:42:26 01/26/20 23 01/25/2023 urina lysis , dipst ick Bilirubin (reference range: negative mg/dl) Negati ve Not Available [facility] [address] [place] [address] [address], [place], [address], 01/25/2023 08:42:26 01/26/20 23 01/25/2023 urina lysis , dipst ick Glucose (reference range: negative mg/dl) Negati ve Not Available [facility] [address] [facility], [place], [address], 01/25/2023 08:42:26 01/26/2001/25/2023 urina lysis , dipst ick Appearance Clear Not Available [facility] [address] [place], [place] [address] [address], [place], [address], 01/25/2023 08:42:26 01/26/2001/25/2023 urina lysis , dipst ick Color Yellow Not Available [facility] [address] [place] [address], [place], [address], 01/25/2023 08:42:26 02/27/2002/26/2023 urina lysis , dipst ick Leukocytes (reference range: negative ugo/ l) Negati ve Not Available [facility] [address] [place] [address], [place], [address], 02/26/2023 09:12:48 02/27/2002/26/2023 urina lysis , dipst ick Nitrite (reference rage: negative mg/dl) negati ve Not Available [facility] [address] [place] [address], [place], [address], 02/26/2023 09:12:48 02/27/2002/26/2023 urina lysis , dipst ick Urobilinogen (reference range: 0.2-1 mg/dl) 0.2 Not Available [facility] [address] [place] [address], [place], [address], 02/26/2023 09:12:48 02/27/2002/26/2023 urina lysis , dipst ick Protein (reference range: negative mg/dl) Negati ve Not Available [facility] [address], [place], [address], 02/26/2023 09:12:48 02/27/2002/26/2023 urina lysis , dipst ick pH (reference range: 5-7) 7.0 Not Available [facility] [address], [place], [address], 02/26/2023 09:12:48 02/27/2002/26/2023 urina lysis , dipst ick Blood (reference range: negative Taz/ l) Negati ve Not Available [facility] [address], [place], [address], 02/26/2023 09:12:48 02/27/2002/26/2023 urina lysis , dipst ick Specific [place] (reference range: 1.005-1.030) 1.020 Not Available s _[facility] [address] [place] [address] [address], [place], [address], 02/26/2023 09:12:48 02/27/2002/26/2023 urina lysis , dipst ick Ketone (reference range: negative mg/dl) Negati ve Not Available [facility] [address] [place] [address] [address], [place], [address], 02/26/2023 09:12:48 02/27/2002/26/2023 urina lysis , dipst ick Bilirubin (reference range: negative mg/dl) Negati ve Not Available [facility] [address] [place] [address] [address], [place], [address], 02/26/2023 09:12:48 02/27/20 23 02/26/2023 urina lysis , dipst ick Glucose (reference range: negative mg/dl) Negati ve Not Available [facility] [address], [place], [address], 02/26/2023 09:12:48 02/27/20 23 02/26/2023 urina lysis , dipst ick Appearance Clear Not Available [facility] [address], [place], [address], 02/26/2023 09:12:48 02/27/20 23 02/26/2023 urina lysis , dipst ick Color Yellow Not Available [facility] [address], [place], [address], 02/26/2023 09:12:48 10/08/19 24 10/13/2023 LIPID PANEL , STAND ERI cholesterol, total 146 mg/dL <200 normal Not Available [address], [address], 10/13/2023 03:31:56 10/08/19 24 10/13/2023 LIPID PANEL , STAND ERI HDL cholesterol 41 mg/dL > or = 40 normal Not Available [facility] [address] [place], [address], 10/13/2023 03:31:56 10/08/19 24 10/13/2023 LIPID PANEL , STAND ERI triglyceride s 71 mg/dL <150 normal Not Available [facility] [address] [place], [address], 10/13/2023 03:31:56 10/08/19 24 10/13/2023 LIPID PANEL , STAND ERI LDL-choleste rol 89 mg/dL _(eb c) normal Refer ence range : <100 Olimpia able range <100 mg/dL for prima ry preve ntion ; <70 mg/dL for patie nts with CHD or diabe tic patie nts with > or = 2 CHD risk facto rs. LDL-C is now calcu lated using the Sue n-Hop kins krupau miko n, which is a valid ated novel metho d provi marbella alexia r accur acy than the Fried carlo equat ion in the estim ation of LDL-C . Sue londono SS et al. MATT. 2013; 310(1 9): 2061- 2068 (http ://ed ucati on.Qu estCystinosis Research Foundation. com/f aq/FA Q164) Not Available [facility] [address] [place], [address], 10/13/2023 03:31:56 10/08/1910/13/2023 LIPID PANEL , STAND ERI chol/HDLC ratio 3.6 (calc ) <5.0 normal Not Available [facility] [address], [place], [address], 10/13/2023 03:31:56 10/08/1910/13/2023 LIPID PANEL , STAND ERI non HDL cholesterol 105 mg/dL _(eb c) <130 normal For patie nts with diabe dm plus 1 major ASCVD risk facto r, treat ing to a non-H DL-C goal of <100 mg/dL (LDL- C of <70 mg/dL ) is consi dered a thera peuti c optio n. Not Available [facility] [address], [place], [address], 10/13/2023 03:31:56 10/08/1910/13/2023 INFLA MMATO RY BOWEL DISEA SE DIFFE RENTI ATION PANEL anca screen NEGATI VE negati ve ANCA Scree n inclu yonatan evalu ation for p-ANC A, c-ANC A and atypi eb p-ANC A. A posit kathleen ANCA scree n refle xes to titer and sukhjinder rn(s) , e.g., cytop dagoberto slaughter rn (c-AN CA), perin ashley slaughter rn (p-AN CA), or atypi eb p-ANC A sukhjinder rn. c-ANC A and p-ANC A are obser phyllis in vascu litis , where as atypi eb p-ANC A is obser phyllis in IBD (Infl ammat ory Bowel Disea se). Atypi eb p-ANC A is detec yimi in about 55% to 80% of patie nts with ulcer ative colit is but only 5% to 25% of patie nts with Crohn 's disea se. Not Available [facility] [address] [place], [address], 10/13/2023 03:31:58 10/08/19 24 10/13/2023 INFLA MMATO RY BOWEL DISEA SE DIFFE RENTI ATION PANEL myeloperoxid ase antibody <1.0 ai <1.0 Value Inter preta tion <1.0 AI: No Antib yaneth Detec yimi >or=1 .0 AI: Antib yaneth Detec yimi Autoa ntibo dies to myelo perox idase (MPO) are commo nly assoc iated with the follo wing small -vess el vascu litid es: micro scopi c polya ngiit is, polya rteri tis nodos a, [place] -Stra uss syndr ome, necro tizin g and cresc entic glome rulon ephri tis and occas ional ly granu lomat osis with polya ngiit is (GPA, Wegen er's) . The perin ashley perry IFA sukhjinder rn, (p-AN CA) is based large ly on autoa ntibo dy to myelo perox idase which serve s as the prima ry antig en. These autoa ntibo dies are prese nt in activ e disea se. Not Available [facility] [address] [place], [address], 10/13/2023 03:31:58 10/08/19 24 10/13/2023 INFLA MMATO RY BOWEL DISEA SE DIFFE RENTI ATION PANEL proteinase-3 antibody <1.0 ai <1.0 Value Inter preta tion <1.0 AI: No Antib yaneth Detec yimi >or=1 .0 AI: Antib yaneth Detec yimi Autoa ntibo dies to prote inase -3 (HI-3 ) are accep yimi as katelynn cteri stic for granu lomat osis with polya ngiit is (GPA, Wegen er's) , and are detec table in 95% of the histo logic ally prove n cases . The cytop dagoberto slaughter rn, (c-AN CA), is based large ly on autoa ntibo dy to HI-3 which serve s as the prima ry antig en. These autoa ntibo dies are prese nt in activ e disea se. Not Available [facility] [address] [place], [address], 10/13/2023 03:31:58 10/08/19 24 10/13/2023 INFLA MMATO RY BOWEL DISEA SE DIFFE RENTI ATION PANEL saccharomyce s cerevisiae Ab (asca) (IgG) 10.0 U <=20.0 Refer ence range (s): Negat kathleen: <=20. 0 Equiv ocal: 20.1 - 29.9 Posit kathleen: >=30. 0 Antib odies to Sacch aromy florencio cerev isiae are found in appro ximat drea 75% of patie nts with Crohn 's disea se, 15% of patie nts with ulcer ative colit is, and 5% of the healt hy popul ation . High antib yaenth titer s incre ase the likel ihood of disea se, espec ially Crohn 's disea se, and are assoc iated with more aggre ssive disea se. As the infla mmati on in Crohn 's disea se is focus ed at the gut mucos a, most patie nts have IgA antib odies to S cerev isiae and half of these also have IgG antib odies . A minor ity of patie nts have only IgG antib odies to S cerev isiae . Not Available [facility] [address] [address] [place], [address], 10/13/2023 03:31:58 10/08/19 24 10/13/2023 INFLA MMATO RY BOWEL DISEA SE DIFFE RENTI ATION PANEL saccharomyce s cerevisiae Ab (asca) (IgA) 2.9 U <=20.0 Refer ence range (s): Negat kathleen : <=20. 0 Equiv ocal: 20.1 - 24.9 Posit kathleen: >=25. 0 Antib odies to Sacch aromy florencio cerev isiae are found in appro ximat drea 75% of patie nts with Crohn 's disea se, 15% of patie nts with ulcer ative colit is, and 5% of the healt hy popul ation . High antib yaneth titer s incre ase the likel ihood of disea se, espec ially Crohn 's disea se, and are assoc iated with more aggre ssive disea se. As the infla mmati on in Crohn 's disea se is focus ed at the gut mucos a, most patie nts have IgA antib odies to S cerev isiae and half of these also have IgG antib odies . A minor ity of patie nts have only IgG antib odies to S cerev isiae . Not Available [facility] [address] [address] [place], [address], 10/13/2023 03:31:58 10/08/19 24 10/13/2023 COMPR EHENS KATHLEEN METAB OLIC PANEL , PLASM A glucose 85 mg/dL 65-99 normal Fasti ng refer ence inter cristofer Not Available [facility] [address] [address] [place], [address], 10/13/2023 03:31:59 10/08/19 24 10/13/2023 COMPR EHENS KATHLEEN METAB OLIC PANEL , PLASM A urea nitrogen (BUN) 20 mg/dL 7-25 normal Not Available [facility] [address] [address] [place], [address], 10/13/2023 03:31:59 10/08/19 24 10/13/2023 COMPR EHENS KATHLEEN METAB OLIC PANEL , PLASM A creatinine 0.96 mg/dL 0.60-1 .26 normal Not Available [address], [address], 10/13/2023 03:31:59 10/08/19 24 10/13/2023 COMPR EHENS KATHLEEN METAB OLIC PANEL , PLASM A eGFR 109 mL/mi n/1.7 3m2 > or = 60 normal Not Available [address], [address], 10/13/2023 03:31:59 10/08/19 24 10/13/2023 COMPR EHENS KATHLEEN METAB OLIC PANEL , PLASM A BUN/creatini ne ratio SEE NOTE: (calc ) 6-22 Not Repor yimi: BUN and Creat inine are withi n refer ence range . Not Available [address], [address], 10/13/2023 03:31:59 10/08/19 24 10/13/2023 COMPR EHENS KATHLEEN METAB OLIC PANEL , PLASM A sodium 142 mmol/ L 135-14 6 normal Not Available [address], [address], 10/13/2023 03:31:59 10/08/19 24 10/13/2023 COMPR EHENS KATHLEEN METAB OLIC PANEL , PLASM A potassium 3.7 mmol/ L 3.4-4. 8 normal Not Available [address], [address], 10/13/2023 03:31:59 10/08/19 24 10/13/2023 COMPR EHENS KATHLEEN METAB OLIC PANEL , PLASM A chloride 106 mmol/ L 98-110 normal Not Available [address], [address], 10/13/2023 03:31:59 10/08/19 24 10/13/2023 COMPR EHENS KATHLEEN METAB OLIC PANEL , PLASM A carbon dioxide 27 mmol/ L 20-32 normal Not Available [address], [address], 10/13/2023 03:31:59 10/08/19 24 10/13/2023 COMPR EHENS KATHLEEN METAB OLIC PANEL , PLASM A calcium 9.7 mg/dL 8.6-10 .3 normal Not Available [address], [address], 10/13/2023 03:31:59 10/08/19 24 10/13/2023 COMPR EHENS KATHLEEN METAB OLIC PANEL , PLASM A protein, total 6.9 g/dL 6.4-8. 4 normal Not Available [address], [address], 10/13/2023 03:31:59 10/08/19 24 10/13/2023 COMPR EHENS KATHLEEN METAB OLIC PANEL , PLASM A albumin 4.9 g/dL 3.6-5. 1 normal Not Available [address], [address], 10/13/2023 03:31:59 10/08/19 24 10/13/2023 COMPR EHENS KATHLEEN METAB OLIC PANEL , PLASM A globulin 2.0 g/dL_ (calc ) 2.2-4. 0 low Not Available [address], [address], 10/13/2023 03:31:59 10/08/19 24 10/13/2023 COMPR EHENS KATHLEEN METAB OLIC PANEL , PLASM A albumin/glob ulin ratio 2.5 (calc ) 0.9-2. 3 high Not Available [address], [address], 10/13/2023 03:31:59 10/08/19 24 10/13/2023 COMPR EHENS KATHLEEN METAB OLIC PANEL , PLASM A bilirubin, total 0.7 mg/dL 0.2-1. 2 normal Not Available [address], [address], 10/13/2023 03:31:59 10/08/19 24 10/13/2023 COMPR EHENS KATHLEEN METAB OLIC PANEL , PLASM A alkaline phosphatase 52 U/L 36-130 normal Not Available [address], [address], 10/13/2023 03:31:59 10/08/19 24 10/13/2023 COMPR EHENS KATHLEEN METAB OLIC PANEL , PLASM A AST 14 U/L 10-40 normal Not Available [address], [address], 10/13/2023 03:31:59 10/08/19 24 10/13/2023 COMPR EHENS KATHLEEN METAB OLIC PANEL , PLASM A ALT 14 U/L 9-46 normal Not Available [address], [address], 10/13/2023 03:31:59 10/08/19 24 10/13/2023 CBC (INCL UDES DIFF/ PLT) white blood cell count 4.3 thous and/u L 3.8-10 .8 normal Not Available [address], [address], 10/13/2023 03:32:00 10/08/19 24 10/13/2023 CBC (INCL UDES DIFF/ PLT) red blood cell count 4.65 elin on/uL 4.20-5 .80 normal Not Available [address], [address], 10/13/2023 03:32:00 10/08/19 24 10/13/2023 CBC (INCL UDES DIFF/ PLT) hemoglobin 13.8 g/dL 13.2-1 7.1 normal Not Available [address], [address], 10/13/2023 03:32:00 10/08/19 24 10/13/2023 CBC (INCL UDES DIFF/ PLT) hematocrit 41.5 % 38.5-5 0.0 normal Not Available [address], [address], 10/13/2023 03:32:00 10/08/19 24 10/13/2023 CBC (INCL UDES DIFF/ PLT) MCV 89.2 fL 80.0-1 00.0 normal Not Available [address], [address], 10/13/2023 03:32:00 10/08/19 24 10/13/2023 CBC (INCL UDES DIFF/ PLT) MCH 29.7 pg 27.0-3 3.0 normal Not Available [address], [address], 10/13/2023 03:32:00 10/08/19 24 10/13/2023 CBC (INCL UDES DIFF/ PLT) MCHC 33.3 g/dL 32.0-3 6.0 normal Not Available [address], [address], 10/13/2023 03:32:00 10/08/19 24 10/13/2023 CBC (INCL UDES DIFF/ PLT) RDW 12.4 % 11.0-1 5.0 normal Not Available [address], [address], 10/13/2023 03:32:00 10/08/19 24 10/13/2023 CBC (INCL UDES DIFF/ PLT) platelet count 216 thous and/u L 140-40 0 normal Not Available [address], [address], 10/13/2023 03:32:00 10/08/19 24 10/13/2023 CBC (INCL UDES DIFF/ PLT) MPV 11.0 fL 7.5-12 .5 normal Not Available [address], [address], 10/13/2023 03:32:00 10/08/19 24 10/13/2023 CBC (INCL UDES DIFF/ PLT) absolute neutrophils 2232 cells /uL 1500-7 800 normal Not Available [address], [address], 10/13/2023 03:32:00 10/08/19 24 10/13/2023 CBC (INCL UDES DIFF/ PLT) absolute lymphocytes 1686 cells /uL 850-39 00 normal Not Available [address], [address], 10/13/2023 03:32:00 10/08/19 24 10/13/2023 CBC (INCL UDES DIFF/ PLT) absolute monocytes 292 cells /uL 200-95 0 normal Not Available [address], [address], 10/13/2023 03:32:00 10/08/19 24 10/13/2023 CBC (INCL UDES DIFF/ PLT) absolute eosinophils 60 cells /uL 15-500 normal Not Available [facility] [address], [address], 10/13/2023 03:32:00 10/08/19 24 10/13/2023 CBC (INCL UDES DIFF/ PLT) absolute basophils 30 cells /uL 0-200 normal Not Available [address], [address], 10/13/2023 03:32:00 10/08/19 24 10/13/2023 CBC (INCL UDES DIFF/ PLT) neutrophils 51.9 % normal Not Available [facility] [id number] [address], [place], [address], 10/13/2023 03:32:00 10/08/19 24 10/13/2023 CBC (INCL UDES DIFF/ PLT) lymphocytes 39.2 % normal Not Available [address], [address], 10/13/2023 03:32:00 10/08/19 24 10/13/2023 CBC (INCL UDES DIFF/ PLT) monocytes 6.8 % normal Not Available [facility] [address], [address], 10/13/2023 03:32:00 10/08/19 24 10/13/2023 CBC (INCL UDES DIFF/ PLT) eosinophils 1.4 % normal Not Available [address], [address], 10/13/2023 03:32:00 10/08/19 24 10/13/2023 CBC (INCL UDES DIFF/ PLT) basophils 0.7 % normal Not Available [address], [address], 10/13/2023 03:32:00 10/08/19 24 10/13/2023 C-DAFNE CTIVE PROTE IN C-reactive protein 0.8 mg/L <8.0 normal Not Available [address], [address], 10/13/2023 03:32:01 10/08/19 24 10/13/2023 T4, FREE T4, free 1.2 NG/dL 0.8-1. 8 normal Not Available [address], [address], 10/13/2023 03:32:02 10/08/19 24 10/13/2023 TSH TSH 1.28 mIU/L 0.40-4 .50 normal Not Available [facility]. [place] [address], [place], [address], 10/13/2023 03:32:03 12/29/19 23 12/28/2022 US, bladd er No observ ation record ed. [email or web address] [facility] [place] [address] [facility] [address], [place], [address], 12/28/2022 14:27:00 01/08/20 23 01/06/2023 US, renal No observ ation record ed. [facility] [address], [place], [address], 01/13/2023 14:44:05 01/26/20 23 01/25/2023 US, bladd er No observ ation record ed. [email or web address] [facility] [place] [address] [facility] [address], [place], [address], 01/25/2023 10:46:41 02/27/20 23 02/26/2023 US, bladd er No observ ation record ed. [email or web address] [facility] [address] [facility] [address], [place], [address], 03/01/2023 17:14:40 10/20/19 24 10/20/2023 CT, abdom en + pelvi s, w/ contr ast No observ ation record ed. [email or web address] [facility] [address], [place], [address], 10/20/2023 11:21:35 Result Notes None recorded. Problems Name Problem SNOMED Code Status Onset Date Resolution Date Notes Provider Name and Address Organization Details Recorded Time Exercise-i nduced asthma 14258053 Active Not Available [employer] 16:14:41 Polyuria 72811501 Active 2022 Boy Cano MD [address], [address], [place], [address] , [place] [facility] 3 12:08:59 Orchitis and epididymit is 962286061 Active 2022 Boy Cano MD [address], [address], [place], [address] , [facility] [employer] [facility] 3 12:13:31 Increased frequency of urination 876647104 Active 2022 Ronald Mckenna NP [address], [address], [place], [address] , [facility] [employer] [facility] 3 11:26:21 Kidney stone 26738528 Active 2022 Ronald Mckenna NP [address], [address], [place], [address] , [facility] [employer] [facility] 3 11:26:42 Prostatiti s 0284318 Active 2022 Ronald Mckenna NP [address], [address], [place], [address] , [facility] [employer] [facility] 3 11:27:03 Pain in testicle 63133584 Active 2022 Ronald Mckenna NP [address], [address], [place], [address] , [facility] [employer] [facility] 3 13:34:17 Constipati on 51735597 Active 2022 Ronald Mckenna NP [address], [address], [place], [address] , [facility] [employer] [facility] 3 13:35:03 Erectile dysfunctio n 519628161 Active 2022 Ronald Mckenna NP [address], [address], [place], [address] , [facility] 3 09:38:24 Lower urinary tract symptoms due to benign prostatic hypertroph y 4911951631163 1 Active 2022 Ronald Mckenna NP [address], [address], [place], [address] , [facility] 3 09:39:22 Abnormal digestive tract function 53502677 Active 2023 Boy Cano MD [address], [place], [address] , [facility] 4 16:44:09 Inflammato ry bowel disease 96164696 Active 2023 Boy Cano MD [address], [place], [address] , [facility] 4 16:48:46 Fatigue 25161877 Active 2023 Boy Cano MD [address], [place], [address] , [facility] - [facility] 4 16:49:13 Problem Notes None recorded. Procedures Surgical History None recorded. Imaging Results Imaging Date Name Status LastModified by Organiz ation Details LastModified Time 12/28/2022 US, bladder completed [email or web address] [facility] [place] [address], [address], 12/28/2022 14:27:00 01/06/2023 US, renal completed [facility] [address], [place], [address], 01/13/2023 14:44:05 01/25/2023 US, bladder completed [email or web address] [facility] [place] [address] [facility] [address], [address], 01/25/2023 10:46:41 02/26/2023 US, bladder completed [email or web address] [facility] [place] [address] [facility] [address], [address], 03/01/2023 17:14:40 10/20/2023 CT, abdomen + pelvis, w/ contrast completed [email or web address] Guido [address], [place], [address], 10/20/2023 11:21:35 Procedure Notes None recorded. Medical Equipment None Reported. Allergies No known drug allergies Medications Name Sig Start Date Stop Date Status Note LastModified by Organization Details LastModified Time amoxicillin 500 mg capsule Take 1 capsule 3 times a day by oral route for 10 days. 07/20 completed Not Available Not Available Not Available prednisone 10 mg tablet take 3 tablets for 2 days, then take 2 tablets for 2 days then take one tablet for 2 days. 04/20 completed Not Available Not Available Not Available doxycycline hyclate 100 mg capsule TAKE 1 CAPSULE BY MOUTH TWICE DAILY 02/26 completed Not Available Not Available Not Available azithromyci n 250 mg tablet FOLLOW PACKAGE DIRECTION S 12/28 completed Not Available Not Available Not Available hydrocodone 5 mg-acetamin ophen 325 mg tablet TAKE 1 TABLET BY MOUTH EVERY 6 HOURS FOR 3 DAYS NEEDED FOR PAIN 04/13 completed Not Available Not Available Not Available tamsulosin 0.4 mg capsule TAKE 1 CAPSULE BY MOUTH DAILY 04/13 completed Not Available Not Available Not Available ondansetron 4 mg disintegrat ing tablet DISSOLVE 1 TABLET ON THE TONGUE EVERY 8 HOURS NEEDED FOR NAUSEA OR VOMITING 04/13 completed Not Available Not Available Not Available fluticasone propionate 50 mcg/actuati on nasal spray,suspe nsion 2 sprays each nostril daily 04/20 completed Not Available Not Available Not Available amoxicillin 875 mg-potassiu m clavulanate 125 mg tablet TAKE 1 TABLET BY MOUTH EVERY 12 HOURS FOR 14 DAYS 09/27 completed Not Available Not Available Not Available alfuzosin ER 10 mg tablet,exte nded release 24 hr TAKE 1 TABLET BY MOUTH AT BEDTIME active Not Available Not Available No t Available tadalafil 5 mg tablet TAKE 1 TABLET BY MOUTH DAILY 09/27 completed Not Available Not Available Not Available solifenacin 5 mg tablet TAKE 1 TABLET BY MOUTH EVERY DAY 01/25 completed Not Available Not Available Not Available Vitals Date Recorded Body height Body mass index (BMI) Body weight Oxygen saturation Oxygen saturation in Arterial blood by Pulse oximetry Heart rate Body temperature Provider Name and Address Organization Details Last Updated DateTime 3 187.96 cm 28 kg/m2 06570.1 4 g 98 % 98 % 77 /min 97.2 [degF] Roosevelt Mckenzie, [facility] [employer] [facility] 3 09:31:39 Date Recorded Body height Provider Name an d Address Organization Details Last Updated DateTime 02/26/2023 187.96 cm Mercedes Cole MA [facility] 02/26/2023 09:09:05 Date Recorded Oxygen saturation Oxygen saturation in Arterial blood by Pulse oximetry Heart rate Body mass index (BMI) Body weight Body temperature Provider Name and Address Organization Details Last Updated DateTime 3 98 % 98 % 74 /min 28.2 kg/m2 15330.3 2 g 97.7 [degF] Roosevelt Mckenzie [facility] [employer] [facility] 3 09:20:18 Date Recorded Body height Body mass index (BMI) Body weight Heart rate Body temperature Oxygen saturation Oxygen saturation in Arterial blood by Pulse oximetry Systolic blood pressure Diastolic blood pressure Provider Name and Address Organization Details Last Updated DateTime 4 187.96 cm 28.1 kg/m2 00369.7 3 g 76 /min 97 [degF] 98 % 98 % 118 mm[Hg] 70 mm[Hg] Ryann Reza [facility] [employer] [facility] 4 16:22:04 Date Recorded Body height Body mass index (BMI) Body weight Heart rate Body temperature Oxygen saturation Oxygen saturation in Arterial blood by Pulse oximetry Systolic blood pressure Diastolic blood pressure Provider Name and Address Organization Details Last Updated DateTime 4 187.96 cm 28.1 kg/m2 49948.7 3 g 76 /min 97 [degF] 99 % 99 % 120 mm[Hg] 74 mm[Hg] Tiarra Malin Berenice [facility] [employer] [facility] 4 16:55:14 Date Recorded Body height Body mass index (BMI) Body weight Heart rate Body temperature Oxygen saturation Oxygen saturation in Arterial blood by Pulse oximetry Systolic blood pressure Diastolic blood pressure Provider Name and Address Organization Details Last Updated DateTime 5 187.96 cm 29.5 kg/m2 583256. 25 g 80 /min 97 [degF] 99 % 99 % 120 mm[Hg] 62 mm[Hg] Ryann Reza [employer] 17:08:52 Social History Question Answer Notes LastModified by Organizat ion Details LastModified Time Tobacco Smoking Status Never Smoker Mercedes Cole MA null, [employer] 12/28/2022 10:51:27 What Is Your Level Of Alcohol Consumption? None Information not available 12/28/2022 What Is Your Level Of Caffeine Consumption? Moderate Information not available 12/28/2022 Do You Use Any Illicit Or Recreational Drugs? No Information not available 12/28/2022 Has Tobacco Cessation Counseling Been Provided? No Information not available 12/28/2022 Do You Or Have You Ever Used Any Other Forms Of Tobacco Or Nicotine? No Information not available 12/28/2022 Sex: Unknown Functional Status None recorded. Mental Status None recorded. Family History Relationship Description Onset Age of this Age Resolved Age Notes LastModified by Organization Details LastModified Time Father Kidney stone Not availa ble 12/28/2022 10:49:51 Paternal Grandfather Heart disease Not available 2022 10:50:12 Unspecified Relation Hypertensive disorder Not available 2022 10:50:52 Notes:Mother living 70 hx of breast cancer Father living 63 HTN, Dementia and reflux One brother living and in good health Medical History Condition Response NERVE DISEASE N CYSTITIS N BLINDNESS N RHEUMATIC FEVER N KIDNEY STONES Y BLADDER PROBLEMS N Enlarged Prostate N MRSA N OTHER # 1 N POLIO N LUNG DISEASE/DISORDER N HISTORY OF DRUG ABUSE N RADIATION / CHEMOTHERAPY N COPD N Other # 2 N BLOOD DISEASES N EAR OR HEARING PROBLEMS N MUMPS N SHINGLES N BOWEL PROBLEMS N DEPRESSION (INCLUDING POST ) N FAILED BACK SYNDROME N STROKE/TIA N THYROID DISEASE N ULCERS N BENIGN PROSTATIC HYPERPLASIA N MEASLES N HYPOTENSION N MYOCARDIAL INFARCTION N OBESITY N GERD/NAUSEA N ANEURYSM N URINARY/BLADDER/KIDNEY PROBLEMS N Increased Urination N CORONARY ARTERY DISEASE (CAD) N Do you have Advance directive? N ADDICTION CONCERNS N ENDOMETRIOSIS N Impotence N USE OF BLOOD THINNERS N SKIN PROBLEMS N EMPHYSEMA N GASTROINTESTINAL DISORDER N PERIPHERAL VASCULAR DISEASE N MUSCLE,JOINT OR BONE PROBLEMS N GASTROINTESTINAL BLEEDING N BLOOD CLOTS N Difficulty Urinating N ASTHMA Y Abdominal Pain N CATARACTS N ARTERIAL INSUFFICIENCY N ERECTILE DYSFUNCTION N VARICOSITIES N GI PROBLEMS N Low Testosterone N INFERTILITY N AIDS/HIV N CHEMOTHERAPY / RADIATION N LIVER DISEASE N MALE HYPOGONADISM N HYPERTENSION N Deficiency N TOURETTE'S N ANXIETY DISORDER N BLOOD TRANSFUSION N ANEMIA/BLOOD DISORDER N CHRONIC EAR INFECTIONS N TUBERCULOSIS N GLAUCOMA N FOOT PROBLEM N DIVERTICULITIS N CHICKENPOX N SLEEP APNEA N BACK INJECTIONS N ALLERGIES/HAYFEVER N INFECTIOUS DISEASE N HEART ARRHYTHMIA N PROSTATE N ESRD N INSOMNIA N HIGH CHOLESTEROL / HYPERLIPIDEMIA N HYPERTHYROIDISM N EYE PROBLEMS N PVD N UTI N EDEMA N CHRONIC PAIN SYNDROME N HYPOTHYROIDISM N CAROTID BLOCKAGE N CONSTIPATION N BACK / NECK PROBLEMS N HAVE YOU BEEN HOSPITALIZED OR SEEN IN [facility] IN THE PAST YEAR ? N ATHEROSCLEROSIS N BREAST PROBLEMS N DIALYSIS N POLYCYSTIC OVARIES N ECZEMA N OSTEOPOROSIS N ARTHRITIS N NO SIGNIFICANT PAST MEDICAL HISTORY N APPENDICITIS N DIABETES, TYPE N BAD TEETH N VON WILLIBRAND'S DISEASE N PARKINSON N ENT N HEARTBURN / REFLUX N GI N incontinence N AUTISM SPECTRUM DISORDER (ASD) N POST LAMINECTOMY SYNDROME N HEPATITIS / LIVER DISEASE N GOUT N SLEEP DISORDER N ALZHEIMER'S DISEASE N Brain Problems N HERPES N DEMENTIA N HEADACHES/MIGRAINES N SEIZURES/EPILEPSY N HEART MURMUR N VASCULAR DISEASE N PACEMAKER N DIZZINESS N HEART DISEASE/HEART PROBLEMS N KIDNEY DISEASE N MULTIPLE SCLEROSIS N NEUROPSYCHOLOGICAL N CARDIAC ARRHYTHMIA N CANCER: SPECIFY N ANESTHESIA COMPLICATIONS N ATRIAL FIBRILLATION N Gall Stones N PULMONARY EMBOLISM N AUTOIMMUNE DISEASE N Immunizations Vaccine Type Date Status Note Provider Nam e and Address Organization Details Recorded Time Influenza, split virus, quadrivalent, PF 04/20/2018 completed Not Available [facility] 3 16:15:21 Past Encounters Encounter ID Performer Location Encounter Start Date Encounter Closed Date Diagnosis/Indication Diagnosis SNOMED-CT Code Diagnosis ICD10 Code Diagnosis Note [id number] Boy Cano MD [facility] Ernesto deleon [address] [facility] , [place] [address] 09/22/2022 11:38:17 09/22/2022 12:22:11 Adult health examination 401855932 Z00.00 Depression screening 171 921887 Z13.31 Polyuria 45994769 R35.89 [id number] Ronald Mckenna NP [facility] [place] [address] [address] 12/28/2022 10:22:53 12/28/2022 11:29:54 Increased frequency of urination 494232123 R35.0 Limit bladder irritants. Will start Solifenaci n 5 mg daily. Medication administra tion, use, side effects discussed. Kidney stone 36891841 N2 0.0 Hx of stones and recently passed stone. Will get EDITA for structural evaluation and to ensure no other obstructin g stones present. UA today is negative for blood. I will call with results. Prostatitis 4922736 N41. 9 We discussed that pain at the tip of the penis be consistent with prostatiti s. Will send urine for micropcr/ sti screen and started on empiric doxycyclin e. Medication administra tion, use, side effects discussed. I will call patient with results and tailor therapy as indicated. Will have patient return to the office in 4 weeks for re-evaluat ion. Pain in testicle 8364909 9 N50.819 We discussed that that diagnosis of pain (dysuria, orchalgia, penile pain) is nonspecifi c, and the workup is targeted towards identifyin g reversible /intervene able etiologies ie. infection, inflammati on, ischemia. If there is not an identifiab le/interve nable cause identified tx will focus on supportive care or we may need to consider other sources of pain such as psycho somatizati on. PLAN: -Urinalysi s- negative for blood or infection -PVR (as urinary retention is risk factor for infection/ inflammati on)- low -Scrotal support -NSAIDS PRN -Check other studies first. If no improvemen t plan for scrotal US. Constipation 77666163 K5 9.00 Having some problems with BM's. Recommend OTC miralax. If remaining a problem f/u with pcp as constipati on can irritate/w orsen urinary symptoms. [id number] Ronald Mckenna NP [facility] [place] [address] [facility] [address] [place] [address] 01/25/2023 09:05:18 01/25/2023 09:43:45 Increased frequency of urination 126336954 R35.0 Holding on Solifenaci n at this time. Limit bladder irritants. Re-eval after abx. Kidney stone 58039005 N2 0.0 Negative EDITA. Prostatitis 6655026 N41. 9 We discussed that pain at the tip of the penis be consistent with prostatiti s. Will send urine for micropcr/ sti screen and started on empiric doxycyclin e. Medication administra tion, use, side effects discussed. I will call patient with results and tailor therapy as indicated. Will have patient return to the office in 4 weeks for re-evaluat ion. 01/25/2023 will treat with 2 weeks of Augmentin as Enterococc us was not sensitive to doxycyclin e. F/u in 4 weeks Pain in testicle 3325263 9 N50.819 We discussed that that diagnosis of pain (dysuria, orchalgia, penile pain) is nonspecifi c, and the workup is targeted towards identifyin g reversible /intervene able etiologies ie. infection, inflammati on, ischemia. If there is not an identifiab le/interve nable cause identified tx will focus on supportive care or we may need to consider other sources of pain such as psycho somatizati on. PLAN: -Urinalysi s- negative for blood or infection -PVR (as urinary retention is risk factor for infection/ inflammati on)- low -Scrotal support -NSAIDS PRN -Check other studies first. If no improvemen t plan for scrotal US. 01/25/2023 Improved with abx. Constipation 96030362 K5 9.00 Having some problems with BM's. Recommend OTC miralax. If remaining a problem f/u with pcp as constipati on can irritate/w orsen urinary symptoms. [id number] Jamey Durant MD [facility] [address] [facility] [address] [place] [address] 02/26/2023 09:03:11 02/26/2023 09:40:20 Increased frequency of urination 558068875 R35.0 limit bladder irritants Kidney stone 41313067 N2 0.0 Negative EDITA. Prostatitis 5159554 N41. 9 We discussed that pain at the tip of the penis be consistent with prostatiti s. Will send urine for micropcr/ sti screen and started on empiric doxycyclin e. Medication administra tion, use, side effects discussed. I will call patient with results and tailor therapy as indicated. Will have patient return to the office in 4 weeks for re-evaluat ion. 01/25/2023 will treat with 2 weeks of Augmentin as Enterococc us was not sensitive to doxycyclin e. F/u in 4 weeks 02/26/2023 Symptoms mostly improved. Will give another two weeks to ensure resolution . Starting daily tadalafil to facilitate bladder emptying. Follow-up in three weeks. Pain in testicle 7654444 9 N50.819 We discussed that that diagnosis of pain (dysuria, orchalgia, penile pain) is nonspecifi c, and the workup is targeted towards identifyin g reversible /intervene able etiologies ie. infection, inflammati on, ischemia. If there is not an identifiab le/interve nable cause identified tx will focus on supportive care or we may need to consider other sources of pain such as psycho somatizati on. PLAN: -Urinalysi s- negative for blood or infection -PVR (as urinary retention is risk factor for infection/ inflammati on)- low -Scrotal support -NSAIDS PRN -Check other studies first. If no improvemen t plan for scrotal US. 01/25/2023 Improved with abx. Erectile dysfunction 860 790705 F52.21 : -We reviewed the potential etiologies for erectile dysfunctio n, as it is often multifacto rial including stress, poor sleep habits, advanced age, impairment s in blood flow or nerve function (which may or may not be related to medication s, systemic etiologies like CAD or DM, radiation, or surgery) PLAN:-Tria l of oral PDEI-Discu ssed risk of priapism, and that an erection lasting >4 hours requires emergent medical attention- Discussed that tadalafil cannot be taken with nitroglyce rin as it can cause life threatenin g low blood pressure-M edication administra tion, use, and side effects discussed Lower urin katie tract symptoms due to benign prostatic hypertrophy 1007141637 9101 N40.1 Starting daily tadalafil to facilitate bladder emptying. Re-eval in three weeks. [id number] Boy Cano MD [facility] [address] [facility] [place] [address] 09/28/2023 16:13:23 09/28/2023 16:56:54 Adult health examination 489952136 Z00.00 Depression screening 171 615438 Z13.31 Abnormal d igestive tract function 87582791 R19.8 Screening for cardiovascular system disease 350640908 Z13.6 Inflammato ry bowel disease 24431818 K52.9 Fatigue 48320064 R53.83 [id number] Boy Cano MD [facility] Internal Med [facility] [address] [facility] [place] [address] 04/13/2024 16:29:06 04/13/2024 17:25:55 Inflammatory bowel disease 81860947 K52.9 Increased frequency of urination 319716842 R35.0 [id number] Boy Cano MD [facility] [address] [facility] [address] [place] [address] 10/17/2024 16:55:38 10/17/2024 17:25:55 Increased frequency of urination 791703795 R35.0 Kidney stone 32256470 N2 0.0 Adult heal th examination 782429119 Z00.00 Health Concerns Section Related Observation LastModified by Organization Detai ls LastModified Time None Recorded Concern Status LastModified by Organization Details LastModified Time None Recorded Advance Directives Directive None Recorded Payers Encounter Date Sequence Insurance Name Policy Number Policy Barrientos Covered Member ID Barrientos Member ID Guarantor Name 01/25/2023 1 [employer] [facility] Bhupendra Parikh [id number] Bhupendra Parikh 02/26/2023 1 [employer] Bhupendra Parikh [id number] Bhupendra Parikh 09/28/2023 1 [employer] [id number] Bhupendra Parikh [id number] Bhupendra Parikh 04/13/2024 1 [employer] [id number] Bhupendra Parikh [id number] Bhupendra Parikh 10/17/2024 1 [employer] [id number] Bhupendra Parikh [id number] Bhupendra Parikh Notes Date Note Type Note Provider Name and Address Organization Details Recorded Time 01/25/2023 text/html 3Patien t presents to the office today with complaints of multiple genitourinary symptoms. He states that at the end of September or early August he developed urinary frequency and was voiding about every hour during the day. He reported a sensation of incomplete emptying /tingling sensation at the tip of his penis. Symptoms were intermittent. He saw his primary care doctor who started him on azithromycin without any improvement. Reports he had a repeat course of azithromycin which again did not approve any symptoms. He states after the 2nd course of antibiotics he started having some pain in his right testicle. He describes his right testicle is heavy/sore. Reports that urinary frequency had been a little bit better but was still coming and going. he states that the pain in his testicle was worse with rest and better with activity. Reports that he saw Dr. Adkins who was going to get an EDITA to check for a kidney stone as he has a hx of stone and prior to getting EDITA completed he ended up at [facility] where he passed his thrid stone. Since passing his stone he reports that symptoms are improving, but are not completely gone. Rare testicular symptoms--mostly bothersome urinary symptoms. UA- negative for blood or infectionPVR-24cc 3patient returns to the office for follow-up. He had a microgen sent that was positive for staph aureus and Enterococcus. He completed full course of doxycycline. Enterococcus not sensitive to doxy. Had renal ultrasound completed on 01/07/2023 that was unremarkable. Negative for any stones, masses, or hydronephrosis. He was also started on solifenacin for urinary frequency, but reports symptoms have improved with abx so he did not take it. Will intermittently still have freq for about one day. Testicular heaviness has almost completely resolved. UA- negative for blood or infectionPVR-25cc Ronald Mckenna, MEAGAN [address] [facility] [address], [place], [address], [facility] 01/25/2023 09:46:07 02/26/2023 text/html 3Patielif sneed presents to the office today with complaints of multiple genitourinary symptoms. He states that at the end of September or early August he developed urinary frequency and was voiding about every hour during the day. He reported a sensation of incomplete emptying /tingling sensation at the tip of his penis. Symptoms were intermittent. He saw his primary care doctor who started him on azithromycin without any improvement. Reports he had a repeat course of azithromycin which again did not approve any symptoms. He states after the 2nd course of antibiotics he started having some pain in his right testicle. He describes his right testicle is heavy/sore. Reports that urinary frequency had been a little bit better but was still coming and going. he states that the pain in his testicle was worse with rest and better with activity. Reports that he saw Dr. Adkins who was going to get an EDITA to check for a kidney stone as he has a hx of stone and prior to getting EDITA completed he ended up at [facility] where he passed his thrid stone. Since passing his stone he reports that symptoms are improving, but are not completely gone. Rare testicular symptoms--mostly bothersome urinary symptoms. UA- negative for blood or infectionPVR-24cc 3patient returns to the office for follow-up. He had a microgen sent that was positive for staph aureus and Enterococcus. He completed full course of doxycycline. Enterococcus not sensitive to doxy. Had renal ultrasound completed on 01/07/2023 that was unremarkable. Negative for any stones, masses, or hydronephrosis. He was also started on solifenacin for urinary frequency, but reports symptoms have improved with abx so he did not take it. Will intermittently still have freq for about one day. Testicular heaviness has almost completely resolved. UA- negative for blood or infectionPVR-25cc 3Patient returns to the office for follow-up. He is on his last day of Augmentin. He is feeling better, but still having intermittent problems with pain at the tip of his penis and some urgency/frequency. He describes sensation like he feels that urine is stuck in his urethra. Also reports he is having some mild problems with ED if he develops symptoms during intercourse. UA- negative for blood or infectionPVR- 66cc Ronald Mckenna NP [address] [facility] [address], [place], [address], [place] - [employer] 02/26/2023 09:45:15 09/28/2023 text/html Patient Name: Desirae riley Voate Of Service: Wednesday ( 09.28.2023 ): 1995 Age: 28 There has been approximately a 3 lb weight loss since 09/22/2022. This represents approximately a 1.4% change in weight. Weight change attributable to lifestyle changes. Vital Signs:Blood Pressure: Sitting Rt. Arm 117/70Pulse: Sitting 76 /min and RegularRespiratory Rate: 12Height 74 in or 1.9 mWeight 219 lb or 99.3 kgBMI 28.1Temperature: 97 F or 36.1 CPulse Oximetry: 98 % at rest on no oxygen Chief Complaint: Addressed in HPI Problems or conditions discussed in the HPI were the only ones reviewed during the encounter.Only social and family history addressed in the HPI were reviewed during this encounter. Attendant(s): NoneConstitutional and Systemic Symptoms:none Medication Reconciliation: from medication list. History of Present Illness In for a well patient check up. Last well patient evaluation was approximately one year. No interval complaints of any new major medical problems. No hx of any chest pain, shortness of breath, nausea, vomiting, diarrhea or constitutional symptoms.PSA NAColonoscopy or Cologuard: dueImmunizations Up To Date or refuses to takeNo Significant Change In Family HxFall Risk normalDepression Score: 0Hearing normalVisual normalReviewed Smoking and Drug HistoryReviewed Immunization HistoryInstructed on importance of weight on diabetes, heart and other diseases aggravated by obesity.Instructed on importance of weight on diabetes, heart and other diseases aggravated by obesity. #1. Complaining intermittent episodes of postprandial abdominal discomfort sometimes associated with loosening of the stool in even some ribbon like stools at times. Did notice some transient blood on toilet paper one juncture. Denies any history of any other systemic or constitutional symptoms. There has been no nausea, vomiting or weight loss or other symptoms suggestive of inflammatory bowel disease. Does have some occasional tenderness in the abdomen but again very nondescript. Does not consume large quantities of any lactose or lactose containing substances. Has noticed this just recently.: Social HistoryDoes not smoke or drinkSexually activeBanking Family HistoryMother living 70 hx of breast cancerFather living 63 HTN, Dementia and refluxOne brother living and in good health Boy Cano MD [address], [address], [place] - [facility] 09/28/2023 16:50:01 04/13/2024 text/html Patient Name: Desirae Roman Of Service: April ( 04.13.2024 ): 1995 Age: 29 Vital Signs:Blood Pressure: Sitting Rt. Arm 120/74Pulse: Sitting 76 /min and RegularRespiratory Rate: 12Height 76 in or 1.9 mWeight 219 lb or 99.3 kgBMI 26.7Temperature: 97 F or 36.1 CPulse Oximetry: 99 % at rest on no oxygen Chief Complaint: Addressed in HPI Problems or conditions discussed in the HPI were the only ones reviewed during the encounter.Only social and family history addressed in the HPI were reviewed during this encounter. Attendant(s): NoneConstitutional and Systemic Symptoms:none Medication Reconciliation: from medication list. [id number]: CT abdomen and pelvis shows a 2 mm stone at the right UV junction no significant hydronephrosis. History of Present Illness #1. Persistent dyspepsia and mild digestion. Did have inflammatory bowel disease panel performed which was negative. Other laboratory studies likewise were within acceptable ranges. If symptoms are persisting recommend setting up with one of the GI doctors for further evaluation for something suggestive of possible SIBO or other syndromes variable bowel etc..: #2. Urinary frequency currently under the care of one of the urologists receiving medications and tolerating well and doing well.: Active Medication ListAlfuzosin Hydrochloride 10 MG TABLET, EXTENDED RELEASE One Hs Social HistoryDoes not smoke or drinkSexually activeBanking Family HistoryMother living 70 hx of breast cancerFather living 63 HTN, Dementia and refluxOne brother living and in good health TEST RESULT RANGE UNITSC-REACTIVE PROTEIN Date: 4C-REACTIVE PROTEIN 0.8 <8.0 MG/LCBC (INCLUDES DIFF/PLT) Date: 10/08/2023WHITE BLOOD CELL COUNT 4.3 3.8-10.8 THOUSAND/ULHEMOGLOBIN 13.8 13.2-17.1 G/DLHEMATOCRIT 41.5 38.5-50.0 %PLATELET COUNT 216 140-400 THOUSAND/ULCOMPREHENSIV E METABOLIC PANEL, PLASMA Date: 10/08/2023SODIUM 142 135-146 MMOL/LPOTASSIUM 3.7 3.4-4.8 MMOL/LGLUCOSE 85 65-99 MG/DLUREA NITROGEN (BUN) 20 7-25 MG/DLCREATININE 0.96 0.60-1.26 MG/DLEGFR 109 > OR = 60 ML/MIN/1.59U2LEIZYGTOS, TOTAL 0.7 0.2-1.2 MG/DLALKALINE PHOSPHATASE 52 36-130 U/LAST 14 10-40 U/LALT 14 9-46 U/LINFLAMMATORY BOWEL DISEASE DIFFERENTIATION PANEL Date: 4ANCA SCREEN NEGATIVE NEGATIVEMYELOPEROXIDASE ANTIBODY <1.0 <1.0 AIPROTEINASE-3 ANTIBODY <1.0 <1.0 AISACCHAROMYCES CEREVISIAE AB (ASCA) (IGG) 10.0 <=20.0 ULIPID PANEL, STANDARD Date: 4CHOLESTEROL, TOTAL 146 <200 MG/DLHDL CHOLESTEROL 41 > OR = 40 MG/DLTRIGLYCERIDES 71 <150 MG/DLLDL-CHOLESTEROL 89 MG/DL (CALC)T4, FREE Date: 10/08/2023T4, FREE 1.2 0.8-1.8 NG/DLTSH Date: 10/08/2023TSH 1.28 0.40-4.50 MIU/L Boy Cano MD [address], [address], [facility] [employer] [facility] 04/13/2024 17:22:57 10/17/2024 text/html Patient Name: Desirae Roman Of Service: Wednesday ( 10.17.2024 ): 1995 Age: 29 There has been approximately a 11 lb weight gain since 04/13/2024. This represents approximately a 5.0% change in weight. Weight change attributable to lifestyle changes. Vital Signs:Blood Pressure: Sitting Rt. Arm 120/62Pulse: Sitting 80 /min and 99Respiratory Rate: 16Height 74 in or 1.9 mWeight 230 lb or 104.3 kgBMI 29.5Temperature: 97 F or 36.1 C Chief Complaint: Addressed in HPI Problems or conditions discussed in the HPI were the only ones reviewed during the encounter.Only social and family history addressed in the HPI were reviewed during this encounter. Attendant(s): NoneConstitutional and Systemic Symptoms:none Medication Reconciliation: from medication list. [id number]: CT abdomen and pelvis shows a 2 mm stone at the right UV junction no significant hydronephrosis. History of Present Illness In for a well patient check up. Last well patient evaluation was approximately one year. No interval complaints of any new major medical problems. No hx of any chest pain, shortness of breath, nausea, vomiting, diarrhea or constitutional symptoms.PSA NAColonoscopy or Cologuard: NAImmunizations Up To Date or refuses to takeNo Significant Change In Family HxFall Risk normalPHQ-2 Ts;k52Aydglipcbi Score: 0Hearing normalVisual normalReviewed Smoking and Drug HistoryReviewed Immunization HistoryInstructed on importance of weight on diabetes, heart and other diseases aggravated by obesity.Instructed on importance of weight on diabetes, heart and other diseases aggravated by obesity. #1. Hx of BPH currently stable. No change in strength or initiation of urinary stream. No post voiding problems. No hx of any fever or chills. Currently taking Alfuzosin Hydrochloride. FAST Stage: 1 No functional decline GCOG Score: Date Clock Numbers Clock Hands Information First Name Last Name Address Number [facility] Score: 9 Basic ADL Score: Bathing and Showering Dressing Feeding Functional Mobility Personal Hygiene Toilet Hygiene Score: 6 Instrumental ADL Score: House Work Taking Medications Shopping Telephone Using Technology Transportation Score: 6 Active Medication ListAlfuzosin Hydrochloride 10 MG TABLET, EXTENDED RELEASE One Hs Social HistoryDoes not smoke or drinkSexually activeBanking Family HistoryMother living 70 hx of breast cancerFather living 63 HTN, Dementia and refluxOne brother living and in good health Boy Cano MD [address] [facility] [address], [place], [address], [facility] [employer] 10/17/2024 17:23:12
[2024-11-18 17:06] LABS: Basophils Percent Auto 0.4 % (0.2-1.2); Eosinophils Absolute Auto 0.1 K/mm3 (0-0.3); Eosinophils Percent Auto 1.1 % (0-4.4); Hematocrit 38.5 % (42.0-52.0); Hemoglobin 12.9 g/dL (14.0-18.0); Immature Granulocyte Absolute 0.02 K/mm3 (0.00-0.031); Immature Granulocyte Percent A 0.3 % (0-0.5); Lymphocytes Absolute Auto 2.66 K/mm3 (0.9-3.2); Lymphocytes Percent Auto 35.2 % (18.3-44.2); Mean Corpuscular HGB Conc 33.5 g/dl (32-36); Mean Corpuscular Hemoglobin 29.2 pg (26-34); Mean Corpuscular Volume 87.1 fl (80-100); Mean Platelet Volume 10.1 fl (7.4-10.4); Monocytes Absolute Auto 0.7 K/mm3 (0.1-0.6); Monocytes Percent Auto 8.7 % (2.6-8.5); Neutrophils Absolute Auto 4.1 K/mm3 (1.3-6.7); Neutrophils Percent Auto 54.3 % (45.5-73.1); Platelet Count Result 207 k/mm3 (150-375); Red Blood Count 4.42 M/mm3 (4.6-6.20); Red Cell Distribution Width 12.1 % (11.5-14.5); White Blood Count 7.6 K/mm3 (4.5-10.0)
[2024-11-18 17:17] LABS: Alanine Aminotransferase 33 U/L (6-50); Albumin Level 4.6 g/dL (3.5-5.1); Alkaline Phosphatase 61 U/L (38-126); Anion Gap 11 mmol/L (4-12); Aspartate Amino Transferase 36 U/L (17-59); Bilirubin,Total 0.7 mg/dL (0.2-1.3); Blood Urea Nitrogen 16 mg/dL (9-20); Calcium 9.5 mg/dL (8.4-10.2); Carbon Dioxide 26 mmol/L (22-30); Chloride 107 mmol/L (98-107); Estimated CRCL calculation 93 ml/min; Estimated Glomerular Filt Rate > 60; Glucose 84 mg/dL (65-110); Potassium 3.1 mmol/L (3.4-5.0); Sodium 144 mmol/L (137-145)
--- NOTE | 2024-11-18 17:23 | ED_ITS ---
HPI - Male Genitourinary General Chief complaint: Urogenital-Male Stated complaint: left flank pain/vomiting Time Seen by Provider: 11/18/24 17:08 History of Present Illness HPI Narrative: 29-year-old male with a history of IBS and kidney stones presents to the ED with significant other at bedside for left lower quadrant abdominal pain that started this morning. Patient is concerned he has a kidney stone. He is reporting pain to the left flank and left lower quadrant of the abdomen he describes as a constant sharp pain with associated nausea and vomiting. Denies dysuria or hematuria, diarrhea, fever. Patient follows with [facility] urology group. States he has never had to have prior intervention, lithotripsy or stent placement in the past. He is taking alfuzosin daily. Related Data Home Medications ?Medication ?Instructions ?Recorded ?Confirmed ?Last Taken ?Type alfuzosin 10 mg tablet,extended 10 mg PO HS 02/16/24 03/06/24 Unknown History release 24 hr Allergies Allergy/AdvReac Type Severity Reaction Status Date / Time No Known Allergies Allergy Verified 11/18/24 17:02 Review of Systems 2 Review of Systems: All systems reviewed & are unremarkable except as noted in HPI and below [facility] Social History Social History Smoking status: Never smoker Alcohol intake: never Substance use: never Substance use type: does not use Living arrangements: with family Gender identity (if verbalized by the patient): Male Spiritual care concerns: No Exam 2 Narrative: GENERAL: Appears uncomfortable, diaphoretic HEAD: Normocephalic, atraumatic. EYES: EOMI. ENT: Nares clear, no rhinorrhea or epistaxis. Mucous membranes moist. NECK: Supple. CHEST: Clear to auscultation. No respiratory distress. HEART: Regular rate and rhythm. No murmur heard. Normal peripheral pulses. ABDOMEN: Normoactive bowel sounds abdomen soft with tenderness in the left lower quadrant and left flank. No rebound, guarding or rigidity EXTREMITIES: Normal range of motion. No edema. SKIN: Warm, dry, no rash. NEURO: No focal deficits. Alert and oriented x3 Course Vital Signs Vital signs: Vital Signs Temperature 97.7 F 11/18/24 16:45 Pulse Rate 88 11/18/24 16:45 Respiratory Rate 16 11/18/24 16:45 Blood Pressure 134/86 11/18/24 16:45 Pulse Oximetry 100 11/18/24 16:45 Oxygen Delivery Room Air 11/18/24 16:45 Temperature 97.7 F 11/18/24 16:45 Pulse Rate 88 11/18/24 20:07 Respiratory Rate 16 11/18/24 20:07 Blood Pressure 114/73 11/18/24 20:07 Pulse Oximetry 98 11/18/24 20:07 Oxygen Delivery Room Air 11/18/24 16:45 MDM - Male Genitourinary MDM Narrative Medical decision making narrative: 29-year-old male with a history of kidney stones presents to emergency department with concerns for left-sided kidney stone. Reporting cough lower quadrant abdominal pain and flank pain that started this morning with associated nausea and vomiting. Vital signs are stable. Exam is significant for the above. CBC without leukocytosis. Hemoglobin leukocytosis of 12.9, consistent with prior. Chemistries with mild hypokalemia of 3.1, no other electrolyte derangements. Mag is normal at 2. UA 1+ ketones and hematuria, no UTI. CT abdomen pelvis shows highly suggestive tiny stone in the left lower ureter with mild left ureter fullness, bilateral tiny kidney stones, no evidence of appendicitis, diverticulitis or intestinal obstruction. Patient received IV fluids, morphine, Zofran without improvement. He was then given 0.5 mg of Dilaudid with some improvement. Attempted to replete his potassium orally, he drank about half of the 40 mEq of p.o. potassium but unfortunately immediately vomited. He was then given another round of Zofran and did complete the rest of the p.o. potassium. He was also provided 20 mEq of intravenous potassium repletion. Unfortunately his pain returned he was given another half a mg of Dilaudid with improvement. He is tolerating p.o. intake and feels safe to be discharged home. Advised to continue his alfuzosin and follow-up with his urologist. Will send Zofran and [place] to the pharmacy. He was discharged the urine strainer and return precautions were discussed. He is agreeable with the plan verbalized understanding. Discharged in stable condition. Lab Data 11/18/24 17:01 11/18/24 17:01 Labs: Lab Results 05/10/25 05/10/25 05/10/25 Range/Units 17:00 17:01 17:21 WBC 7.6 (4.5-10.0) K/mm3 RBC 4.42 L (4.6-6.20) M/mm3 Hgb 12.9 L (14.0-18.0) g/dL Hct 38.5 L (42.0-52.0) % MCV 87.1 (80-100) fl MCH 29.2 (26-34) pg MCHC 33.5 (32-36) g/dl RDW 12.1 (11.5-14.5) % Plt Count 207 (150-375) k/mm3 MPV 10.1 (7.4-10.4) fl Immature Gran % (Auto) 0.3 (0-0.5) % Neut % (Auto) 54.3 (45.5-73.1) % Lymph % (Auto) 35.2 (18.3-44.2) % Faulk % (Auto) 8.7 H (2.6-8.5) % Eos % (Auto) 1.1 (0-4.4) % Baso % (Auto) 0.4 (0.2-1.2) % Lymph # (Auto) 2.66 (0.9-3.2) K/mm3 Faulk # (Auto) 0.7 H (0.1-0.6) K/mm3 Eos # (Auto) 0.1 (0-0.3) K/mm3 Baso # (Auto) 0.0 (0.0-0.1) K/mm3 Abs Immat Gran (auto) 0.02 (0.00-0.031) K/mm3 Absolute Neuts (auto) 4.1 (1.3-6.7) K/mm3 Absolute Nucleated RBC 0.000 (0.0-0.012) K/mm3 Nucleated RBC % 0.0 (0.0-0.2) % Sodium 144 (137-145) mmol/L Potassium 3.1 L (3.4-5.0) mmol/L Chloride 107 (98-107) mmol/L Carbon Dioxide 26 (22-30) mmol/L Anion Gap 11 (4-12) mmol/L BUN 16 (9-20) mg/dL Creatinine 1.19 (0.7-1.3) mg/dL Estim Creat Clear Calc 93 ml/min Estimated GFR > 60 (59 - ) Glucose 84 (65-110) mg/dL Calcium 9.5 (8.4-10.2) mg/dL Magnesium 2.0 (1.6-2.3) mg/dL Total Bilirubin 0.7 (0.2-1.3) mg/dL AST 36 (17-59) U/L ALT 33 (6-50) U/L Alkaline Phosphatase 61 (38-126) U/L Total Protein 7.0 (6.3-8.2) g/dL Albumin 4.6 (3.5-5.1) g/dL Lipase 85 (23-300) U/L Urine Color (Yellow) Urine Appearance (Clear) Urine pH (5.0-9.0) Ur Specific [place] (1.001-1.035) Urine Protein (Negative) mg/dL Urine Glucose (UA) (Negative) mg/dL Urine Ketones (Negative) mg/dL Ur Blood (Man) (Negative) Urine Nitrate (Negative) Urine Bilirubin (Negative) Urine Urobilinogen (<2.0) mg/dL Add Ur Microanalysis Leukocyte Esterase Rfl (Negative) MAGDALENO/UL Urine RBC (0-2) /hpf Urine WBC (0-3) /hpf Ur Squamous Epith Cells (Few) /hpf Urine Bacteria /hpf Urine Casts 11/18/24 Range/Units 18:44 WBC (4.5-10.0) K/mm3 RBC (4.6-6.20) M/mm3 Hgb (14.0-18.0) g/dL Hct (42.0-52.0) % MCV (80-100) fl MCH (26-34) pg MCHC (32-36) g/dl RDW (11.5-14.5) % Plt Count (150-375) k/mm3 MPV (7.4-10.4) fl Immature Gran % (Auto) (0-0.5) % Neut % (Auto) (45.5-73.1) % Lymph % (Auto) (18.3-44.2) % Faulk % (Auto) (2.6-8.5) % Eos % (Auto) (0-4.4) % Baso % (Auto) (0.2-1.2) % Lymph # (Auto) (0.9-3.2) K/mm3 Faulk # (Auto) (0.1-0.6) K/mm3 Eos # (Auto) (0-0.3) K/mm3 Baso # (Auto) (0.0-0.1) K/mm3 Abs Immat Gran (auto) (0.00-0.031) K/mm3 Absolute Neuts (auto) (1.3-6.7) K/mm3 Absolute Nucleated RBC (0.0-0.012) K/mm3 Nucleated RBC % (0.0-0.2) % Sodium (137-145) mmol/L Potassium (3.4-5.0) mmol/L Chloride (98-107) mmol/L Carbon Dioxide (22-30) mmol/L Anion Gap (4-12) mmol/L BUN (9-20) mg/dL Creatinine (0.7-1.3) mg/dL Estim Creat Clear Calc ml/min Estimated GFR (59 - ) Glucose (65-110) mg/dL Calcium (8.4-10.2) mg/dL Magnesium (1.6-2.3) mg/dL Total Bilirubin (0.2-1.3) mg/dL AST (17-59) U/L ALT (6-50) U/L Alkaline Phosphatase (38-126) U/L Total Protein (6.3-8.2) g/dL Albumin (3.5-5.1) g/dL Lipase (23-300) U/L Urine Color Dark yellow (Yellow) Urine Appearance Clear (Clear) Urine pH 7.5 (5.0-9.0) Ur Specific [place] 1.029 (1.001-1.035) Urine Protein 1+ H (Negative) mg/dL Urine Glucose (UA) Negative (Negative) mg/dL Urine Ketones 1+ H (Negative) mg/dL Ur Blood (Man) 3+ H (Negative) Urine Nitrate Negative (Negative) Urine Bilirubin Negative (Negative) Urine Urobilinogen 1.0 (<2.0) mg/dL Add Ur Microanalysis Reviewed Leukocyte Esterase Rfl Negative (Negative) MAGDALENO/UL Urine RBC >100 H (0-2) /hpf Urine WBC 0-5 (0-3) /hpf Ur Squamous Epith Cells None seen (Few) /hpf Urine Bacteria None seen /hpf Urine Casts 3-5 Discharge Plan Discharge Clinical Impression: Left ureteral stone, Acute hypokalemia Patient Disposition: Home Condition: Stable Instructions: Antibiotic Form, Kidney Stones (ED), How to Strain Your Urine (ED) Additional Instructions: Your evaluated in the emergency department with concerns for a kidney stone. Your found have a small kidney stone in the left ureter and several small kidney stones in both kidneys. Please continue to strain her urine. Take the alfuzosin as prescribed by your urologist. Take naproxen as needed for pain, hydrocodone as needed for breakthrough pain, ondansetron as needed for nausea. Return to the emergency department if you develop a fever, your unable to tolerate food or fluids, you develop uncontrollable pain, or other concerning symptoms. Patient Language: Djiboutian Prescriptions: New ondansetron 4 mg tablet,disintegrating 4 mg PO Q8H Qty: 14 0RF naproxen 500 mg tablet 500 mg PO BID PRN (Reason: pain) Qty: 20 0RF hydrocodone-acetaminophen 5-325 mg tablet 1 tablet PO Q8H PRN (Reason: pain) Qty: 14 0RF No Action alfuzosin 10 mg tablet extended release 24 hr 10 mg PO HS Follow-up/Referrals: Jerome,Boy San MD [Primary Care Provider] -
--- OUTSIDE RECORDS SUMMARY | 2024-11-18 17:25 | XMS_ITS | Clinical Summary ---
Author Organization [facility] Address [address] [address] Phone Care Team Providers Care Paper Pattern Inspector Name Role Phone Unavailable Primary Care Provider [...] patient's age to complete this topic Insurance [employer] [facility]
--- OUTSIDE RECORDS SUMMARY | 2024-11-18 17:25 | XMS_ITS | Clinical Summary ---
Author Organization [facility] Address [address] [place] [address] Phone Care Team Providers Care Bomb Technician Name Role Phone Boy Cano MD Primary Care Provider [phone] Kevin Javier MD Unavailable Allergies No known [...] Comments Blood Pressure 131/79 08/18/2023 8:32 AM MARINE MECHANIC Pulse 83 08/18/2023 8:32 AM MARINE MECHANIC Temperature 36.6 C (97.9 F) 08/18/2023 8:32 AM MARINE MECHANIC Respiratory Rate 14 08/18/2023 8:32 AM MARINE MECHANIC Oxygen Saturation 98% 08/18/2023 8:32 AM MARINE MECHANIC Inhaled Oxygen Concentration - - Weight 101.3 kg (223 lb 6.4 oz) 08/18/2023 8:32 AM MARINE MECHANIC Height 188 cm (6' 2 ) 08/18/2023 8:32 AM MARINE MECHANIC Body Mass Index 28.68 08/18/2023 8:32 AM MARINE MECHANIC Plan of Treatment Health Maintenance Due Date [...] patient's age to complete this topic Insurance [employer] Care Teams Bomb Technician Relationship Specialty Start Date End Date Boy Cano MD [address] [place] [address] [address] [place] [address] PCP - General Internal Medicine 08/18/23 Kevin Javier MD [address] [address] Consulting Physician Urological Surgery 08/18/23
[2024-11-18] MEDS: MORPHINE SULFATE (*CRX) 4 MG/ML INJ IV PUSH (17:26)
[2024-11-18] MEDS: SODIUM CHLORIDE 0.9% IV 1,000 ML 999 ML IV CONT (17:26)
[2024-11-18] MEDS: ONDANSETRON INJ 4 MG/2 ML VIAL IV PUSH ×2 (17:26→18:56)
[2024-11-18 17:46] LABS: Lipase 85 U/L (23-300)
[2024-11-18] MEDS: HYDROmorphone HCL INJ (*CRX) 2 MG/ML VIAL 0.5 MG IV PUSH ×2 (17:51→18:58)
--- NOTE | 2024-11-18 18:14 | ECG_ITS ---
Test Date: 2024-11-18 18:27:56 Measurements Intervals [place] Rate: 76 P: 49 MO: 142 QRS: 67 QRSD: 102 T: 44 QT: 379 QTc: 426 Interpretive Statements SINUS RHYTHM INTERPRETATION BASED ON A DEFAULT AGE OF 40 YEARS No previous ECG available for comparison Electronically Signed On 11-20-2024 15:18:07 CDT by Lawrence Urena M.D.
[2024-11-18] MEDS: POTASSIUM CHLORIDE 20 MEQ PACKET (FOR LIQUID) 40 MEQ PO (18:29)
[2024-11-18 18:57] LABS: Add Urine Microscopic? YES; Appearance Urine Clear (Clear); Bacteria Urine None Seen /hpf; Bilirubin Urine Negative (Negative); Blood Urine 3+ (Negative); Color Urine Dark Yellow (Yellow); Glucose Urine UA Negative (Negative); Ketones Urine 1+ mg/dL (Negative); Leukocyte Esterase Ur Negative LEU/UL (Negative); Need Manual Microscopic Reviewed; Nitrate Urine Negative (Negative); Protein Urine 1+ mg/dL (Negative); RBC Urine >100 /hpf (0-2); Specific Grav Ur 1.029 (1.001-1.035); Squamous Epithelial Cell Urine None Seen /hpf (Few); WBC Urine 0-5 /hpf (0-3); pH Urine 7.5 (5.0-9.0)
[2024-11-18] MEDS: SODIUM CHLORIDE 0.9% IV 1,000 ML 400 ML IV CONT (19:07)
[2024-11-18] MEDS: KCL 20 MEQ/SW 100 ML 100 ML 50 MEQ IVPB (19:07)
--- NOTE | 2024-11-18 21:10 | PC.NURSE ---
patient able to finish his potassium drink, eat ice chips and 2 packages of saltine crackers prior to discharge.
== END 2024-11-18 21:27 | disposition home or self-care (01) ==
PROVIDERS: Emergency Medicine; Emergency Provider Physician Assistant; PCP Internal Medicine
DX: N20.1 Calculus of ureter (principal); E87.6 Hypokalemia; Z87.442 Personal history of urinary calculi
CPT/HCPCS: 36415; 74176; 80053; 81001; 83690; 83735; 85025; 93005; 96361; 96365; 96366; 96375; 96376; 99284; A9270; J1171; J2270; J2405; J3480; J7030

== ENCOUNTER 2024-11-25 06:29 | Inpatient (IN) | payer OTHER, SELFPAY ==
[2024-11-25] VITALS (14 sets, daily range): BP systolic 90–144; BP diastolic 50–80; PULSE 54–81; RESP 12–20; TEMP 36.4–36.9; O2SAT 98–100; BMI 29.9
--- NOTE | ~2024-11-25 | CT_ITS ---
EXAMINATION: CT abdomen pelvis wo con DATE: 11/25/2024 10:54 INDICATION: Right flank pain and right lower quadrant pain. TECHNIQUE: Computed tomography (CT) of the abdomen and pelvis was performed without intravenous contr ast. Automated exposure control and iterative reconstruction technique were employed. The dose-length product was 318.94 mGy-cm. COMPARISON: 11/18/2024 FINDINGS: Minimal dependent atelectasis in bilateral lower lobes. Heart size normal. No pericardial or pleural effusion. Liver, gallbladder, spleen, pancreas and bilateral adrenal glands are normal. 3 mm nonobstr ucting stone at the mid left kidney. There are also bilateral ureteral stones including the previous noted 3 mm stone which remains at the distal left ureter approximately 4 cm proximal to the ureterove sicular junction and a second 3 mm stone, previously in the right kidney and now at the right uretero vesicular junction. There is mild right hydronephrosis with some haziness to the right renal sinus fa t. Bladder is normal. There are few sigmoid diverticula without adjacent from trace stranding to sugg est diverticular colitis. Small bowel and appendix are normal. No free intraperitoneal gas or fluid. No pathologically enlarged abdominal or pelvic lymphadenopathy. Mild thoracic and lumbar spondylosis. IMPRESSION: 1. Bilateral nephrolithiasis including a 3 mm stones in both the left and right ureters with mild rig ht hydronephrosis is severe renal sinus fat. Correlate with urinalysis to exclude associated ascendin g urinary tract infection. Reviewed, dictated and finalized at location A. IMPRESSION: 1. Bilateral nephrolithiasis including a 3 mm stones in both the left and right ureters with mild right hydronephrosis is severe renal sinus fat. Correlate wi urinalysis to exclude associated ascending urinary tract infection.
--- NOTE | ~2024-11-25 | XR_ITS ---
XR retrograde pyelo w/stent BI Ordering provider: Brant Bedner MD History: . BILATERAL STENT PLACEMENT . Comparison: None. FINDINGS/impression: Bilateral double-J stent is noted in the kidneys and proximal ureters. Fluoroscopy time is 6.2 seconds. Cumulative dose is 0.986 mGy square meter. Or: 23.2 mGy. Reviewed, dictated and finalized at location A.
--- OUTSIDE RECORDS SUMMARY | 2024-11-25 06:30 | XMS_ITS | Clinical Summary ---
Author Organization [facility] Address [address] [address] Phone Care Team Providers Care Yarn Sorter Name Role Phone Unavailable Primary Care Provider [...] patient's age to complete this topic Insurance [employer] [facility] OPEN ACCESS
--- OUTSIDE RECORDS SUMMARY | 2024-11-25 06:30 | XMS_ITS | Data Portability ---
Author Organization [place] - [facility] [employer], Main Office Address [address] [place] [address] Assessment No assessment recorded. Plan of Treatment Reminders Order Date Submit Date Provider Last Modified By Organization Details Last Modified Time Details Appointments None recorded. Lab CMP, serum or plasma 2024 025 [email or web address] [employer] [facility], [address], [place], [address], 5 16:15:18 CBC w/ auto diff 2024 025 [email or web address] [employer] [facility], [address], [place], [address], 5 16:15:18 lipid panel, serum 2024 025 [email or web address] [employer] [facility], [address], [place], [address], 5 16:15:18 T4, free, serum 2024 025 [email or web address], [address], [place], [address], 5 16:15:18 TSH, serum or plasma 2024 025 [employer] [facility], [address], [place], [address], 5 16:15:18 pancreatic elastase, stool 2023 024 [email or web address] [facility], [address], [place], [address], 4 10:08:25 CBC w/ auto diff 2023 024 [email or web address] [facility], [address], [place], [address], 4 10:08:26 inflammator y bowel disease Ab panel, serum 2023 024 [email or web address] [facility], [address], [place], [address], 4 03:31:58 C-reactive protein, quantitativ e, serum or plasma 2023 024 [email or web address], [address], [place], [address], 4 03:32:01 lipid panel, serum 2023 024 [email or web address], [address], [place], [address], 4 03:31:56 CMP, serum or plasma 2023 024 [email or web address], [address], [place], [address], 4 03:31:59 TSH, serum or plasma 2023 024 [email or web address], [address], [place], [address], 4 10:08:26 T4, free, serum 2023 024 [email or web address], [address], [place], [address], 4 10:08:26 testosteron e, total, serum 2022 023 [email or web address], [address], [place], [address], 3 11:09:41 urinalysis, dipstick 2022 023 [email or web address] 9 [facility], [address], [place], [address], 3 09:39:57 urinalysis, dipstick 2022 023 [email or web address] 9 [facility], [address], [place], [address], 3 09:45:02 Referral None recorded. Procedures None recorded. Surgeries None recorded. Imaging US, bladder 2022 023 [email or web address] [facility], [address] [facility] [address], [place], [address], 3 09:40:20 US, bladder 2022 023 [email or web address] 9 [facility], [address] [facility] [address], [place], [address], 3 09:45:02 Medication Orders tadalafil 5 mg tablet 2022 023 [email or web address], [address], [place], [id number], 4 16:22:21 Augmentin 875 mg-125 mg tablet 2022 023 [facility], [address], [place], [id number], 4 16:22:18 Augmentin 875 mg-125 mg tablet 2022 023 [email or web address] [facility], [address] [place], [place], [id number], 4 16:22:18 Patient TargetsNo targets recorded. Patient Instructions Encounter Date Encounter Id Patient Instructions Last Modified By Organization Details Last Modified Time 09/28/2023 [id number] risk assessment* [email or web address] Not availabl e 09/28/2023 16:49:56 INFLUENZA VACCIN [...] smoker SEXUALLY ACTIVE GLUCOSE SCREENING LIPID SCREENING [email or web address] Not available 09/28/2023 16:29:13 Adult health examination [...] with voice recognition software. Occasional wrong-word or ddxhl-n-ssus substitutions may have occurred due to the inherent limitations of voice recognition software. Read the chart carefully and recognize, using context, where substitutions have occurred. Set up with GI for evaluation of altered bowel function including some small amount of rectal bleeding. [email or web address] Not available 09/28/2023 16:49:31 04/13/2024 [id number] Follow-up for dyspepsia as well as increased urinary frequency all doing well. No need for additional blood work at this time. Consider possible GI referral. Follow Up: 6 Months Approximate Date: 10/10/2024 Portions of the record may have been created with voice recognition software. Occasional wrong-word or gornj-s-vala substitutions may have occurred due to the inherent limitations of voice recognition software. Read the chart carefully and recognize, using context, where substitutions have occurred. [email or web address] Not available 04/13/2024 17:22:35 10/17/2024 [id number] Wellness evaluation risk assessment table. Follow-up for [...] with voice recognition software. Occasional wrong-word or vcajs-b-qbrk substitutions may have occurred due to the inherent limitations of voice recognition software. Read the chart carefully and recognize, using context, where substitutions may have occurred. Created: Boy Cano M.D. 10.17.2024 04:19 PM [email or web address] Not available 10/17/2024 17:19:35 Reason for Referral None Reported. Results Created Date Observation Date Name Description Value Unit Range Abnormal Flag Note LastModifiedBy Organization Detail LastModifiedTime 01/26/2001/25/2023 urina lysis , dipst ick Leukocytes (reference range: negative ugo/ l) Negati ve Not Available [facility] [address] [facility] [address], [place], [address], 01/25/2023 08:42:26 01/26/20 23 01/25/2023 urina lysis , dipst ick Nitrite (reference rage: negative mg/dl) negati ve Not Available [facility] [address] [facility] [address], [place], [address], 01/25/2023 08:42:26 01/26/20 23 01/25/2023 urina lysis , dipst ick Urobilinogen (reference range: 0.2-1 mg/dl) 0.2 Not Available [facility] [address] [facility] [address], [place], [address], 01/25/2023 08:42:26 01/26/20 23 01/25/2023 urina lysis , dipst ick Protein (reference range: negative mg/dl) Negati ve Not Available [facility] [address] [place] [address] [address], [place], [address], 01/25/2023 08:42:26 01/26/20 23 01/25/2023 urina lysis , dipst ick pH (reference range: 5-7) 5.5 Not Available s_ [facility] [address] [place] [address] [address], [place], [address], 01/25/2023 08:42:26 01/26/20 23 01/25/2023 urina lysis , dipst ick Blood (reference range: negative Taz/ l) Negati ve Not Available [facility] [address] [place] [address] [address], [place], [address], 01/25/2023 08:42:26 01/26/20 23 01/25/2023 urina lysis , dipst ick Specific [place] (reference range: 1.005-1.030) 1.030 Not Available s _[facility] [address] [place] [address] [address], [place], [address], 01/25/2023 08:42:26 01/26/20 23 01/25/2023 urina lysis , dipst ick Ketone (reference range: negative mg/dl) Negati ve Not Available [facility] [address] [place] [address] [address], [place], [address], 01/25/2023 08:42:26 01/26/20 23 01/25/2023 urina lysis , dipst ick Bilirubin (reference range: negative mg/dl) Negati ve Not Available [facility] [address] [place] [address] [address], [place], [address], 01/25/2023 08:42:26 01/26/20 23 01/25/2023 urina lysis , dipst ick Glucose (reference range: negative mg/dl) Negati ve Not Available [facility] [address], [place], [address], 01/25/2023 08:42:26 01/26/20 23 01/25/2023 urina lysis , dipst ick Appearance Clear Not Available [facility] [address] [facility] [address], [place], [address], 01/25/2023 08:42:26 01/26/20 23 01/25/2023 urina lysis , dipst ick Color Yellow Not Available [facility] [address] [place] [address] [address] [facility], [place], [address], 01/25/2023 08:42:26 02/27/2002/26/2023 urina lysis , dipst ick Leukocytes (reference range: negative ugo/ l) Negati ve Not Available [facility] [address] [facility], [place], [address], 02/26/2023 09:12:48 02/27/2002/26/2023 urina lysis , dipst ick Nitrite (reference rage: negative mg/dl) negati ve Not Available [facility] [address] [place] [address] [address] [facility], [place], [address], 02/26/2023 09:12:48 02/27/2002/26/2023 urina lysis , dipst ick Urobilinogen (reference range: 0.2-1 mg/dl) 0.2 Not Available [facility] [address] [place], [place] [address]melody [facility], [place], [address], 02/26/2023 09:12:48 02/27/20 23 02/26/2023 urina lysis , dipst ick Protein (reference range: negative mg/dl) Negati ve Not Available [facility] [address], [place], [address], 02/26/2023 09:12:48 02/27/2002/26/2023 urina lysis , dipst ick pH (reference range: 5-7) 7.0 Not Available [facility]_ [facility] [address], [place], [address], 02/26/2023 09:12:48 02/27/2002/26/2023 urina lysis , dipst ick Blood (reference range: negative Taz/ l) Negati ve Not Available [facility] [address] [place] [address] [address], [place], [address], 02/26/2023 09:12:48 02/27/2002/26/2023 urina lysis , dipst ick Specific [place] (reference range: 1.005-1.030) 1.020 Not Available s _[facility] [address] [place] [address] [address], [place], [address], 02/26/2023 09:12:48 02/27/2002/26/2023 urina lysis , dipst ick Ketone (reference range: negative mg/dl) Negati ve Not Available [facility] [address] [place] [address] [address], [place], [address], 02/26/2023 09:12:48 02/27/20 23 02/26/2023 urina lysis , dipst ick Bilirubin (reference range: negative mg/dl) Negati ve Not Available [facility] [address] [place] [address] [address], [place], [address], 02/26/2023 09:12:48 02/27/20 23 02/26/2023 urina lysis , dipst ick Glucose (reference range: negative mg/dl) Negati ve Not Available [facility] [address], [place], [address], 02/26/2023 09:12:48 02/27/20 23 02/26/2023 urina lysis , dipst ick Appearance Clear Not Available [facility] [address], [place], [address], 02/26/2023 09:12:48 02/27/20 23 02/26/2023 urina lysis , dipst ick Color Yellow Not Available [facility] [address], [place], [address], 02/26/2023 09:12:48 10/08/19 24 10/13/2023 LIPID PANEL , STAND ERI cholesterol, total 146 mg/dL <200 normal Not Available [address], [address], 10/13/2023 03:31:56 10/08/19 24 10/13/2023 LIPID PANEL , STAND ERI HDL cholesterol 41 mg/dL > or = 40 normal Not Available [email or web address] [address] [place], [address], 10/13/2023 03:31:56 10/08/19 24 10/13/2023 LIPID PANEL , STAND ERI triglyceride s 71 mg/dL <150 normal Not Available [email or web address] [address] [address] [place], [address], 10/13/2023 03:31:56 10/08/19 24 10/13/2023 LIPID PANEL [...] calcu lated using the Sue n-Hop kins calcu miko n, which is a valid ated novel metho d provi ding alexia r accur acy than the Fried carlo equat ion in the estim ation of LDL-C . Sue londono SS et al. MATT. 2013; 310(1 9): 2061- 2068 (http ://ed ucati on.Qu estSAY Media. com/f aq/FA Q164) Not Available [email or web address] [address] [place], [address], 10/13/2023 03:31:56 10/08/1910/13/2023 LIPID PANEL , STAND ERI chol/HDLC ratio 3.6 (calc ) <5.0 normal Not Available [email or web address] [address], [place], [address], 10/13/2023 03:31:56 10/08/1910/13/2023 LIPID PANEL , STAND ERI non HDL cholesterol 105 mg/dL _(eb c) <130 normal For patie nts with diabe dm plus 1 major ASCVD risk facto r, treat ing to a non-H DL-C goal of <100 mg/dL (LDL- C of <70 mg/dL ) is consi dered a thera peuti c optio n. Not Available [email or web address] [address] [address], [place], [address], 10/13/2023 03:31:56 10/08/1910/13/2023 INFLA MMATO RY BOWEL DISEA SE DIFFE RENTI ATION PANEL anca screen NEGATI VE negati ve ANCA Scree n inclu yonatan evalu ation for p-ANC A, c-ANC A and atypi eb p-ANC A. A posit kathleen ANCA scree n refle xes to saravanan and sukhjinder rn(s) , e.g., cytop lasmi nathalia slaughter rn (c-AN CA), perin ashley slaughter [...] with Crohn 's disea se. Not Available [email or web address] [address] [address] [place], [address], 10/13/2023 03:31:58 10/08/19 24 10/13/2023 INFLA MMATO [...] in activ e disea se. Not Available [email or web address] [address] [place], [address], 10/13/2023 03:31:58 03/10/13/2023 INFLA MMATO RY BOWEL DISEA SE DIFFE RENTI ATION PANEL proteinase-3 antibody <1.0 ai <1.0 Value Inter preta tion <1.0 AI: No Antib yaneth Detec yimi >or=1 .0 AI: Antib yaneth Detec yimi Autoa ntibo dies to prote inase -3 (TN-3 ) are accep yimi as katelynn cteri stic for granu lomat osis with polya ngiit is (GPA, Wegen er's) , and are detec table in 95% of the histo logic ally prove n cases . The cytop dagoberto slaughter rn, (c-AN CA), is based large ly on autoa ntibo dy to TN-3 which serve s as the prima ry antig en. These autoa ntibo dies are prese nt in activ e disea se. Not Available [facility] [address] [place], [address], 10/13/2023 03:31:58 10/08/19 24 10/13/2023 INFLA MMATO [...] cerev isiae . Not Available [facility] [address] [address] [place], [address], 10/13/2023 03:31:58 10/08/19 24 10/13/2023 INFLA MMATO [...] cerev isiae . Not Available [facility] [address] [address] [place], [address], 10/13/2023 03:31:58 10/08/19 24 10/13/2023 COMPR EHENS KATHLEEN METAB OLIC PANEL , PLASM A glucose 85 mg/dL 65-99 normal Fasti ng refer ence inter cristofer Not Available [facility] [address] [address] [place], [address], 10/13/2023 03:31:59 10/08/19 24 10/13/2023 COMPR EHENS KATHLEEN METAB OLIC PANEL , PLASM A urea nitrogen (BUN) 20 mg/dL 7-25 normal Not Available [facility] [address] [address] [place], [address], 10/13/2023 03:31:59 10/08/19 24 10/13/2023 COMPR EHENS KATHLEEN METAB OLIC PANEL , PLASM A creatinine 0.96 mg/dL 0.60-1 .26 normal Not Available [address], [address], 10/13/2023 03:31:59 10/08/19 24 10/13/2023 COMPR EHENS KATHLEEN METAB OLIC PANEL , PLASM A eGFR 109 mL/mi n/1.7 3m2 > or = 60 normal Not Available [address], [address], 10/13/2023 03:31:59 10/08/19 24 10/13/2023 COMPR EHENS KATHLEEN METAB OLIC PANEL , PLASM A BUN/creatini ne ratio SEE NOTE: (calc ) 6-22 Not Repor yimi: BUN and Creat inine are withi n refer ence range . Not Available [address], [address], 10/13/2023 03:31:59 10/08/19 24 10/13/2023 COMPR EHENS KATHLEEN METAB OLIC PANEL , PLASM A sodium 142 mmol/ L 135-14 6 normal Not Available [address], [address], 10/13/2023 03:31:59 10/08/19 24 10/13/2023 COMPR EHENS KATHLEEN METAB OLIC PANEL , PLASM A potassium 3.7 mmol/ L 3.4-4. 8 normal Not Available [address], [address], 10/13/2023 03:31:59 10/08/19 24 10/13/2023 COMPR EHENS KATHLEEN METAB OLIC PANEL , PLASM A chloride 106 mmol/ L 98-110 normal Not Available [address], [address], 10/13/2023 03:31:59 10/08/19 24 10/13/2023 COMPR EHENS KATHLEEN METAB OLIC PANEL , PLASM A carbon dioxide 27 mmol/ L 20-32 normal Not Available [facility] [address], [address], 10/13/2023 03:31:59 10/08/19 24 10/13/2023 COMPR EHENS KATHLEEN METAB OLIC PANEL , PLASM A calcium 9.7 mg/dL 8.6-10 .3 normal Not Available [address], [address], 10/13/2023 03:31:59 10/08/19 24 10/13/2023 COMPR EHENS KATHLEEN METAB OLIC PANEL , PLASM A protein, total 6.9 g/dL 6.4-8. 4 normal Not Available [address], [address], 10/13/2023 03:31:59 10/08/19 24 10/13/2023 COMPR EHENS KATHLEEN METAB OLIC PANEL , PLASM A albumin 4.9 g/dL 3.6-5. 1 normal Not Available [address], [address], 10/13/2023 03:31:59 10/08/19 24 10/13/2023 COMPR EHENS KATHLEEN METAB OLIC PANEL , PLASM A globulin 2.0 g/dL_ (calc ) 2.2-4. 0 low Not Available [facility] [address], [address], 10/13/2023 03:31:59 10/08/19 24 10/13/2023 COMPR EHENS KATHLEEN METAB OLIC PANEL , PLASM A albumin/glob ulin ratio 2.5 (calc ) 0.9-2. 3 high Not Available [facility] [address], [address], 10/13/2023 03:31:59 10/08/19 24 10/13/2023 COMPR EHENS KATHLEEN METAB OLIC PANEL , PLASM A bilirubin, total 0.7 mg/dL 0.2-1. 2 normal Not Available [address], [address], 10/13/2023 03:31:59 10/08/19 24 10/13/2023 COMPR EHENS KATHLEEN METAB OLIC PANEL , PLASM A alkaline phosphatase 52 U/L 36-130 normal Not Available [address], [address], 10/13/2023 03:31:59 10/08/19 24 10/13/2023 COMPR EHENS KATHLEEN METAB OLIC PANEL , PLASM A AST 14 U/L 10-40 normal Not Available [address], [address], 10/13/2023 03:31:59 10/08/19 24 10/13/2023 COMPR EHENS KATHLEEN METAB OLIC PANEL , PLASM A ALT 14 U/L 9-46 normal Not Available [address], [address], 10/13/2023 03:31:59 10/08/19 24 10/13/2023 CBC (INCL UDES DIFF/ PLT) white blood cell count 4.3 thous and/u L 3.8-10 .8 normal Not Available [address], [address], 10/13/2023 03:32:00 10/08/19 24 10/13/2023 CBC (INCL UDES DIFF/ PLT) red blood cell count 4.65 elin on/uL 4.20-5 .80 normal Not Available [address], [address], 10/13/2023 03:32:00 10/08/19 24 10/13/2023 CBC (INCL UDES DIFF/ PLT) hemoglobin 13.8 g/dL 13.2-1 7.1 normal Not Available [address], [address], 10/13/2023 03:32:00 10/08/19 24 10/13/2023 CBC (INCL UDES DIFF/ PLT) hematocrit 41.5 % 38.5-5 0.0 normal Not Available [address], [address], 10/13/2023 03:32:00 10/08/19 24 10/13/2023 CBC (INCL UDES DIFF/ PLT) MCV 89.2 fL 80.0-1 00.0 normal Not Available [address], [address], 10/13/2023 03:32:00 10/08/19 24 10/13/2023 CBC (INCL UDES DIFF/ PLT) MCH 29.7 pg 27.0-3 3.0 normal Not Available [address], [address], 10/13/2023 03:32:00 10/08/19 24 10/13/2023 CBC (INCL UDES DIFF/ PLT) MCHC 33.3 g/dL 32.0-3 6.0 normal Not Available [address], [address], 10/13/2023 03:32:00 10/08/19 24 10/13/2023 CBC (INCL UDES DIFF/ PLT) RDW 12.4 % 11.0-1 5.0 normal Not Available [address], [address], 10/13/2023 03:32:00 10/08/19 24 10/13/2023 CBC (INCL UDES DIFF/ PLT) platelet count 216 thous and/u L 140-40 0 normal Not Available [address], [address], 10/13/2023 03:32:00 10/08/19 24 10/13/2023 CBC (INCL UDES DIFF/ PLT) MPV 11.0 fL 7.5-12 .5 normal Not Available [address], [address], 10/13/2023 03:32:00 10/08/19 24 10/13/2023 CBC (INCL UDES DIFF/ PLT) absolute neutrophils 2232 cells /uL 1500-7 800 normal Not Available [facility] [address], [address], 10/13/2023 03:32:00 10/08/19 24 10/13/2023 CBC (INCL UDES DIFF/ PLT) absolute lymphocytes 1686 cells /uL 850-39 00 normal Not Available [address], [address], 10/13/2023 03:32:00 10/08/19 24 10/13/2023 CBC (INCL UDES DIFF/ PLT) absolute monocytes 292 cells /uL 200-95 0 normal Not Available [address], [address], 10/13/2023 03:32:00 10/08/19 24 10/13/2023 CBC (INCL UDES DIFF/ PLT) absolute eosinophils 60 cells /uL 15-500 normal Not Available [facility] [address], [address], 10/13/2023 03:32:00 10/08/19 24 10/13/2023 CBC (INCL UDES DIFF/ PLT) absolute basophils 30 cells /uL 0-200 normal Not Available [facility] [address], [address], 10/13/2023 03:32:00 10/08/19 24 10/13/2023 CBC (INCL UDES DIFF/ PLT) neutrophils 51.9 % normal Not Available [facility] [address] [address], [place], [address], 10/13/2023 03:32:00 10/08/19 24 10/13/2023 CBC (INCL UDES DIFF/ PLT) lymphocytes 39.2 % normal Not Available [facility] [address], [address], 10/13/2023 03:32:00 10/08/19 24 10/13/2023 CBC (INCL UDES DIFF/ PLT) monocytes 6.8 % normal Not Available [facility] [address], [address], 10/13/2023 03:32:00 10/08/19 24 10/13/2023 CBC (INCL UDES DIFF/ PLT) eosinophils 1.4 % normal Not Available [facility] [address], [address], 10/13/2023 03:32:00 10/08/19 24 10/13/2023 CBC (INCL UDES DIFF/ PLT) basophils 0.7 % normal Not Available [facility] [address], [address], 10/13/2023 03:32:00 10/08/19 24 10/13/2023 C-DAFNE CTIVE PROTE IN C-reactive protein 0.8 mg/L <8.0 normal Not Available [address], [address], 10/13/2023 03:32:01 10/08/19 24 10/13/2023 T4, FREE T4, free 1.2 NG/dL 0.8-1. 8 normal Not Available [address], [address], 10/13/2023 03:32:02 10/08/19 24 10/13/2023 TSH TSH 1.28 mIU/L 0.40-4 .50 normal Not Available [facility] [address] [address], [place], [address], 10/13/2023 03:32:03 12/29/19 23 12/28/2022 US, bladd er No observ ation record ed. [email or web address] [facility] [address], [place], [address], 12/28/2022 14:27:00 01/08/20 23 01/06/2023 US, renal No observ ation record ed. [facility] [address] [facility] [address], [place], [address], 01/13/2023 14:44:05 01/26/20 23 01/25/2023 US, bladd er No observ ation record ed. [email or web address] [facility] [address], [place], [address], 01/25/2023 10:46:41 02/27/20 23 02/26/2023 US, bladd er No observ ation record ed. [email or web address] [facility] [address] [facility] [address], [place], [address], 03/01/2023 17:14:40 10/20/19 24 10/20/2023 CT, abdom en + pelvi s, w/ contr ast No observ ation record ed. [facility] [address], [place], [address], 10/20/2023 11:21:35 11/19/19 25 11/18/2024 CT, abdom en + pelvi s, w/o contr ast [id number]|2024-11-26 10:05:45|2024-11-26 10:05:45|[id number]||||"Progress Note: A&P Assessment and Plan (1) Bilateral ureteral calculi: Code(s): N20.1 - Calculus of ureter Status: Acute Assessment and Plan: Status post right ureteroscopy with stone extraction and stent and left ureteroscopy with inability to reach stone and stent placement on 11/25/2024. -patient with some stent-related discomfort continue oxybutynin 5 mg 3 times daily -continue alfuzosin 0.4 mg daily -can continue pain medications and Tylenol ibuprofen as needed Can add AZO p.r.n.. -patient will need outpatient follow-up for left ureteroscopy, stone extraction, and stent management. Should plan for this in 1-2 weeks. Our office will reach out to him to try and arrange this, previously he had had issues with insurance network coverage and our group. He has a urologist in [facility] he can also follow-up with if insurance is an issue. -okay for discharge from Urology perspective (2) CARLA (acute kidney injury): Code(s): N17.9 - Acute kidney failure, unspecified Status: Acute Plan Improved today. Subjective Subjective Date/Time Seen: 11/26/24 10:05 Interval history: Overnight has had some issues with bladder spasms on voiding, the rest is comfortable. No fevers, no chills, creatinine improved today. Exam Const: Other: No apparent distress Resp: Effort & Inspection: normal respiratory effort Cardio: Rate: regular rate GI: Other: Soft, nontender, nondistended Objective Data Vital Signs Vital Signs: Vital Signs - 24 hr 11/25/24 14:13 11/25/24 14:15 11/25/24 14:30 Temperature 36.9 C Pulse Rate 75 68 63 Respiratory Rate 15 12 12 Blood Pressure 90/54 L 93/50 L 92/55 L Pulse Oximetry 99 100 100 Oxygen Delivery Simple Face Mask Simple Face Mask Room Air Oxygen Flow Rate 10 10 11/25/24 14:45 11/25/24 14:55 11/25/24 15:00 Temperature Pulse Rate 79 62 64 Respiratory Rate 12 12 12 Blood Pressure 121/64 121/79 117/59 L Pulse Oximetry 98 98 98 Oxygen Delivery Room Air Room Air Room Air Oxygen Flow Rate 11/25/24 15:24 11/25/24 15:40 11/25/24 16:19 Temperature 36.5 C 36.5 C 36.6 C Pulse Rate 54 L 61 57 L Respiratory Rate 18 16 18 Blood Pressure 118/72 113/69 112/66 Pulse Oximetry 99 99 98 Oxygen Delivery Oxygen Flow Rate 11/25/24 18:00 11/25/24 20:11 11/26/24 05:34 Temperature 36.4 C 36.8 C 36.6 C Pulse Rate 62 81 57 L Respiratory Rate 18 16 16 Blood Pressure 119/73 118/73 113/71 Pulse Oximetry 98 100 99 Oxygen Delivery Oxygen Flow Rate 11/26/24 08:30 Temperature Pulse Rate Respiratory Rate Blood Pressure Pulse Oximetry Oxygen Delivery Room Air Oxygen Flow Rate Intake/Output Intake/Output: Intake & Output 11/23/24 11/24/24 11/25/24 11/26/24 23:59 23:59 23:59 23:59 Intake Total 0 2250 Balance 0 2250 Meds/Results Medications: Active Medications Generic Name Dose Route Start Last Admin Trade Name Freq PRN Reason Stop Dose Admin Acetaminophen 650 mg 11/25/24 15:04 Acetaminophen 325 Mg Tablet PO Q4H PRN Mild Pain (1-3) or Fever Hydrocodone Bitart/Acetaminophen 1 tab 11/25/24 15:04 11/26/24 09:31 Hydrocodone/Acetaminophen (*Crx) 5-325 Mg Tablet PO 1 tab Q4H PRN Administration Moderate Pain (4-6) Alfuzosin HCl 10 mg 11/25/24 21:00 11/26/24 00:07 Alfuzosin 10 Mg Er Tablet PO Not Given HS BRIANNA Docusate Sodium 100 mg 11/25/24 17:00 11/26/24 09:31 Docusate Sodium 100 Mg Capsule PO 100 mg BID BRIANNA Administration Fentanyl Citrate 25 mcg 11/25/24 13:26 11/25/24 14:55 Fentanyl Citrate Inj (*Crx) 100 Mcg/2 Ml Vial IV PUSH 25 mcg Q2M PRN Administration Pain Sodium Chloride 1,000 mls @ 125 mls/hr 11/25/24 13:05 11/26/24 09:32 Normal Saline Iv IV CONT 125 mls/hr .Q8H BRIANNA Administration Lactated Ringer's 1,000 mls @ 30 mls/hr 11/25/24 13:30 11/25/24 14:13 Lr - Lactated Ringers Iv IV CONT 30 mls/hr .Q24H BRIANNA Administration Lactated Ringer's 1,000 mls @ 30 mls/hr 11/25/24 13:30 11/25/24 17:07 Lr - Lactated Ringers Iv IV CONT Not Given .Q24H BRIANNA Morphine Sulfate 2 mg 11/25/24 13:02 Morphine Sulfate (*Crx) 2 Mg/Ml Inj IV PUSH Q2H PRN Pain Rated 7-10 Ondansetron HCl 4 mg 11/25/24 13:02 Ondansetron Inj 4 Mg/2 Ml Vial IV PUSH Q4H PRN Nausea Ondansetron HCl 4 mg 11/25/24 13:26 Ondansetron Inj 4 Mg/2 Ml Vial IV PUSH ONCE PRN Nausea Oxybutynin Chloride 2.5 mg 11/25/24 23:50 11/26/24 09:34 Oxybutynin Chloride 2.5 Mg Tab PO 2.5 mg TID BRIANNA Administration Oxycodone HCl 5 mg 11/25/24 13:26 Oxycodone Hcl (*Crx) 5 Mg Tab Ir PO ONCE PRN Pain Radiology Results: ITS Impressions Abdomen/Pelvis CT 11/25/24 10:54 IMPRESSION: 1. Bilateral nephrolithiasis including a 3 mm stones in both the left and right ureters with mild right hydronephrosis is severe renal sinus fat. Correlate with urinalysis to exclude associated ascending urinary tract infection. Labs Labs: Laboratory Results - last 24 hr 11/26/24 05:07 WBC 6.6 RBC 5.50 Hgb 16.3 D Hct 48.5 MCV 88.2 MCH 29.6 MCHC 33.6 RDW 12.0 Plt Count 116 L MPV 10.5 H Immature Gran % (Auto) 0.5 Neut % (Auto) 89.4 H Lymph % (Auto) 6.6 L Kleberg % (Auto) 3.5 Eos % (Auto) 0.0 Baso % (Auto) 0.0 L Lymph # (Auto) 0.43 L Kle[place] # (Auto) 0.2 Eos # (Auto) 0.0 Baso # (Auto) 0.0 Abs Immat Gran (auto) 0.03 Absolute Neuts (auto) 5.9 Absolute Nucleated RBC 0.000 Nucleated RBC % 0.0 Sodium 140 Potassium 4.2 Chloride 109 H Carbon Dioxide 24 Anion Gap 7 BUN 19 Creatinine 0.93 Estim Creat Clear Calc 118 Estimated GFR > 60 Glucose 110 Calcium 8.8 Iron 76 TIBC 315 % Saturation 24 Ferritin 53.00 Vitamin B12 172.0 L Folate 4.1"
--- OUTSIDE RECORDS SUMMARY | 2024-11-25 06:30 | XMS_ITS | Clinical Summary ---
Author Organization [facility] Address [address] [place] [address] Phone Care Team Providers Care Architect In Training Name Role Phone Boy Cano MD Primary Care Provider [phone] Kevin Javier MD Unavailable Allergies No known [...] Comments Blood Pressure 131/79 08/18/2023 8:32 AM CONSULTING PSYCHOLOGIST Pulse 83 08/18/2023 8:32 AM CONSULTING PSYCHOLOGIST Temperature 36.6 C (97.9 F) 08/18/2023 8:32 AM CONSULTING PSYCHOLOGIST Respiratory Rate 14 08/18/2023 8:32 AM CONSULTING PSYCHOLOGIST Oxygen Saturation 98% 08/18/2023 8:32 AM CONSULTING PSYCHOLOGIST Inhaled Oxygen Concentration - - Weight 101.3 kg (223 lb 6.4 oz) 08/18/2023 8:32 AM CONSULTING PSYCHOLOGIST Height 188 cm (6' 2 ) 08/18/2023 8:32 AM CONSULTING PSYCHOLOGIST Body Mass Index 28.68 08/18/2023 8:32 AM CONSULTING PSYCHOLOGIST Plan of Treatment Health Maintenance Due Date [...] patient's age to complete this topic Insurance [employer] Care Teams Architect In Training Relationship Specialty Start Date End Date Boy Cano MD [address] [place] [address] [address] [place] [address] PCP - General Internal Medicine 08/18/23 Kevin Javier MD [address] [address] Consulting Physician Urological Surgery 08/18/23
--- NOTE | 2024-11-25 07:30 | PC.NURSE ---
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 This RN obtained VS on pt which are stable, pt was repositioned and given a wet paper towel for forehead as requested and gave verbal reassurance. No further questions or complaints at this time.
[2024-11-25 08:17] LABS: Basophils Percent Auto 0.4 % (0.2-1.2); Eosinophils Percent Auto 0.4 % (0-4.4); Hematocrit 38.2 % (42.0-52.0); Hemoglobin 12.7 g/dL (14.0-18.0); Immature Granulocyte Absolute 0.02 K/mm3 (0.00-0.031); Immature Granulocyte Percent A 0.3 % (0-0.5); Lymphocytes Absolute Auto 0.98 K/mm3 (0.9-3.2); Lymphocytes Percent Auto 12.4 % (18.3-44.2); Mean Corpuscular HGB Conc 33.2 g/dl (32-36); Mean Corpuscular Hemoglobin 29.7 pg (26-34); Mean Corpuscular Volume 89.5 fl (80-100); Mean Platelet Volume 10.3 fl (7.4-10.4); Monocytes Absolute Auto 0.5 K/mm3 (0.1-0.6); Monocytes Percent Auto 5.7 % (2.6-8.5); Neutrophils Absolute Auto 6.4 K/mm3 (1.3-6.7); Neutrophils Percent Auto 80.8 % (45.5-73.1); Platelet Count Result 181 k/mm3 (150-375); Red Blood Count 4.27 M/mm3 (4.6-6.20); Red Cell Distribution Width 12.1 % (11.5-14.5); White Blood Count 7.9 K/mm3 (4.5-10.0)
[2024-11-25 08:21] LABS: Alanine Aminotransferase 33 U/L (6-50); Albumin Level 4.3 g/dL (3.5-5.1); Alkaline Phosphatase 61 U/L (38-126); Anion Gap 8 mmol/L (4-12); Aspartate Amino Transferase 37 U/L (17-59); Bilirubin,Total 0.7 mg/dL (0.2-1.3); Blood Urea Nitrogen 22 mg/dL (9-20); Calcium 9.2 mg/dL (8.4-10.2); Carbon Dioxide 25 mmol/L (22-30); Chloride 109 mmol/L (98-107); Estimated CRCL calculation 88 ml/min; Estimated Glomerular Filt Rate > 60; Glucose 95 mg/dL (65-110); Lipase 54 U/L (23-300); Potassium 3.9 mmol/L (3.4-5.0); Sodium 142 mmol/L (137-145)
[2024-11-25 08:30] LABS: Add Urine Microscopic? YES; Appearance Urine Clear (Clear); Bacteria Urine None Seen /hpf; Bilirubin Urine Negative (Negative); Blood Urine 2+ (Negative); Color Urine Dark Yellow (Yellow); Glucose Urine UA Negative (Negative); Ketones Urine Trace mg/dL (Negative); Leukocyte Esterase Ur Negative LEU/UL (Negative); Need Manual Microscopic Reviewed; Nitrate Urine Negative (Negative); Non Pathogenic Casts 0-2; Protein Urine Trace mg/dL (Negative); RBC Urine 21-50 /hpf (0-2); Specific Grav Ur 1.035 (1.001-1.035); Squamous Epithelial Cell Urine None Seen /hpf (Few); WBC Urine 0-5 /hpf (0-3); pH Urine 5.5 (5.0-9.0)
--- NOTE | 2024-11-25 08:30 | PC.NURSE ---
PT FARMWORKER GENERAL SNELL, ASKING FOR EDP TO ARRIVE, ALSO ASKING FOR MEDICATIONS. EDUCATED PT ON NURSING STAFF BEING UNABLE TO ORDER MEDS. ENCOURAGED PT TO BE PATIENT, 2ND EDP WOULD BE HERE TO HELP SEE PATIENTS. APOLOGIZED FOR THE PT'S DISCOMFORT,
--- NOTE | 2024-11-25 09:52 | PC.NURSE ---
pt c/o nausea. EDP Rosa Isela gave VORB for Zofran 4mg IVP
[2024-11-25] MEDS: ONDANSETRON INJ 4 MG/2 ML VIAL IV PUSH (09:56)
--- OUTSIDE RECORDS SUMMARY | 2024-11-25 10:12 | XMS_ITS | Clinical Summary ---
Author Organization [facility] Address [address] [place] [address] Phone Care Team Providers Care Lead Php Developer Name Role Phone Boy Cano MD Primary Care Provider [phone] Kevin Javier MD Unavailable Allergies No known [...] Comments Blood Pressure 131/79 08/18/2023 8:32 AM MEDICAL CENTER DIRECTOR Pulse 83 08/18/2023 8:32 AM MEDICAL CENTER DIRECTOR Temperature 36.6 C (97.9 F) 08/18/2023 8:32 AM MEDICAL CENTER DIRECTOR Respiratory Rate 14 08/18/2023 8:32 AM MEDICAL CENTER DIRECTOR Oxygen Saturation 98% 08/18/2023 8:32 AM MEDICAL CENTER DIRECTOR Inhaled Oxygen Concentration - - Weight 101.3 kg (223 lb 6.4 oz) 08/18/2023 8:32 AM MEDICAL CENTER DIRECTOR Height 188 cm (6' 2 ) 08/18/2023 8:32 AM MEDICAL CENTER DIRECTOR Body Mass Index 28.68 08/18/2023 8:32 AM MEDICAL CENTER DIRECTOR Plan of Treatment Health Maintenance Due Date [...] patient's age to complete this topic Insurance [employer] Care Teams Lead Php Developer Relationship Specialty Start Date End Date Boy Cano MD [address] [place] [address] [address] [place] [address] PCP - General Internal Medicine 08/18/23 Kevin Javier MD [address] [address] Consulting Physician Urological Surgery 08/18/23
--- OUTSIDE RECORDS SUMMARY | 2024-11-25 10:12 | XMS_ITS | Clinical Summary ---
Author Organization [facility] Address [address] [address] Phone Care Team Providers Care Candle Wicker Name Role Phone Unavailable Primary Care Provider [...] patient's age to complete this topic Insurance [employer] [facility]
[2024-11-25] MEDS: KETOROLAC 30 MG/ML VIAL (*BKC) IV PUSH (10:42)
--- NOTE | 2024-11-25 11:48 | ED.GENADULT ---
HPI - General Adult General Chief complaint: Abdominal Pain Stated complaint: rlq abd pain Time Seen by Provider: 11/25/24 10:07 History of Present Illness HPI narrative: Patient is a 29-year-old male who presents ER with right-sided abdominal pain. Seen earlier in the week and diagnosed with kidney stones. He passed his stone earlier in the week and then through a strainer. He reports he then passed 5-6 more urinary stones. He has been having pain on the right side radiating down into the right lower quadrant. Intermittent vomiting. No dysuria or hematuria. No fevers or chills or sweats. Related Data Home Medications Medication Instructions Recorded Confirmed Last Taken Type alfuzosin 10 mg tablet,extended 10 mg PO HS 02/16/24 11/25/24 11/24/24 History release 24 hr Allergies Allergy/AdvReac Type Severity Reaction Status Date / Time lactose Allergy Intermediate Diarrhea Verified 11/25/24 15:59 Review of Systems Review of Systems: All systems reviewed & are unremarkable except as noted in HPI and below Constitutional: Constitutional: Reports no additional constitutional complaints ENT: Reports system reviewed and no additional complaints, except as documented Cardiovascular: Cardiovascular: Reports no additional cardiovascular complaints Respiratory: Respiratory: Reports no additional respiratory complaints Gastrointestinal: Gastrointestinal: Reports no additional gastrointestinal complaints Genitourinary: Genitourinary: Reports no additional male genitourinary complaints [facility] Past Medical History Medical History (Updated 11/25/24 @ 19:20 by Bhupendra Bar MD) Bilateral ureteral calculi Surgical History Surgical History (Updated 11/25/24 @ 13:25 by Jamey Moreno MD) H/O colonoscopy Family History Family History (Updated 11/25/24 @ 15:54 by Fe Hernández RN) Father Kidney stones Mother Breast cancer Grandparent Kidney malignancy Grandparent Congestive heart failure Atrial fibrillation Alzheimer disease Father Irritable bowel syndrome (IBS) Grandparent Lung cancer Social History Social History Smoking status: Never smoker Alcohol intake: never Substance use: never Substance use type: does not use Do You Feel Safe in your Home?: Yes Lack of Transportation: No Lack of Food: Never True Current Housing: I Have Housing Concerned About Future Housing: No Difficulty Paying Gas/Electric Bills: No Difficulty Paying for Meds: No Currently Unemployed: No Education: Bachelor's Degree Difficulty w/ Childcare or Family Care: No Living arrangements: with family Gender identity (if verbalized by the patient): Male Spiritual care concerns: No Exam Narrative: GENERAL: Well-appearing, well-nourished, and in no acute distress. HEAD: Normocephalic, atraumatic. ENT: Mucous membranes moist. CHEST: Clear to auscultation. No respiratory distress. HEART: Regular rate and rhythm. Normal peripheral pulses. ABDOMEN: Soft, nontender, nondistended. No CVA tenderness EXTREMITIES: Normal range of motion. No edema. SKIN: Warm, dry, no rash. NEURO: Alert and oriented x3. PSYCH: Normal mood and affect. Course Course Emergency Course: Patient informed of results. He is doing well pain medication. Discussed with urology. Patient is to go to the OR for some stent placement hospital stone retrieval. He will need to be observed overnight. Medicine service will admit him. Vital Signs Vital signs: Vital Signs Temperature 97.8 F 11/25/24 06:35 Pulse Rate 71 11/25/24 06:35 Respiratory Rate 16 11/25/24 06:35 Blood Pressure 144/75 H 11/25/24 06:35 Pulse Oximetry 99 11/25/24 06:35 Temperature 97.6 F 11/25/24 18:00 Pulse Rate 62 11/25/24 18:00 Respiratory Rate 18 11/25/24 18:00 Blood Pressure 119/73 11/25/24 18:00 Pulse Oximetry 98 11/25/24 18:00 Oxygen Delivery Room Air 11/25/24 15:00 Oxygen Flow Rate 10 11/25/24 14:15 Medical Decision Making Vital Signs Vital Signs: Vital Signs Temperature 97.8 F 11/25/24 06:35 Pulse Rate 71 11/25/24 06:35 Respiratory Rate 16 11/25/24 06:35 Blood Pressure 144/75 H 11/25/24 06:35 Pulse Oximetry 99 11/25/24 06:35 Temperature 97.6 F 11/25/24 18:00 Pulse Rate 62 11/25/24 18:00 Respiratory Rate 18 11/25/24 18:00 Blood Pressure 119/73 11/25/24 18:00 Pulse Oximetry 98 11/25/24 18:00 Oxygen Delivery Room Air 11/25/24 15:00 Oxygen Flow Rate 10 11/25/24 14:15 Lab Data 11/25/24 08:05 11/25/24 08:05 Labs: Lab Results 11/25/24 Range/Units 08:05 WBC 7.9 (4.5-10.0) K/mm3 RBC 4.27 L (4.6-6.20) M/mm3 Hgb 12.7 L (14.0-18.0) g/dL Hct 38.2 L (42.0-52.0) % MCV 89.5 (80-100) fl MCH 29.7 (26-34) pg MCHC 33.2 (32-36) g/dl RDW 12.1 (11.5-14.5) % Plt Count 181 (150-375) k/mm3 MPV 10.3 (7.4-10.4) fl Immature Gran % (Auto) 0.3 (0-0.5) % Neut % (Auto) 80.8 H (45.5-73.1) % Lymph % (Auto) 12.4 L (18.3-44.2) % Crane % (Auto) 5.7 (2.6-8.5) % Eos % (Auto) 0.4 (0-4.4) % Baso % (Auto) 0.4 (0.2-1.2) % Lymph # (Auto) 0.98 (0.9-3.2) K/mm3 Crane # (Auto) 0.5 (0.1-0.6) K/mm3 Eos # (Auto) 0.0 (0-0.3) K/mm3 Baso # (Auto) 0.0 (0.0-0.1) K/mm3 Abs Immat Gran (auto) 0.02 (0.00-0.031) K/mm3 Absolute Neuts (auto) 6.4 (1.3-6.7) K/mm3 Absolute Nucleated RBC 0.000 (0.0-0.012) K/mm3 Nucleated RBC % 0.0 (0.0-0.2) % Sodium 142 (137-145) mmol/L Potassium 3.9 (3.4-5.0) mmol/L Chloride 109 H (98-107) mmol/L Carbon Dioxide 25 (22-30) mmol/L Anion Gap 8 (4-12) mmol/L BUN 22 H (9-20) mg/dL Creatinine 1.26 (0.7-1.3) mg/dL Estim Creat Clear Calc 88 ml/min Estimated GFR > 60 (59 - ) Glucose 95 (65-110) mg/dL Calcium 9.2 (8.4-10.2) mg/dL Total Bilirubin 0.7 (0.2-1.3) mg/dL AST 37 (17-59) U/L ALT 33 (6-50) U/L Alkaline Phosphatase 61 (38-126) U/L Total Protein 7.0 (6.3-8.2) g/dL Albumin 4.3 (3.5-5.1) g/dL Lipase 54 (23-300) U/L Urine Color Dark yellow (Yellow) Urine Appearance Clear (Clear) Urine pH 5.5 (5.0-9.0) Ur Specific [place] 1.035 (1.001-1.035) Urine Protein Trace (Negative) mg/dL Urine Glucose (UA) Negative (Negative) mg/dL Urine Ketones Trace H (Negative) mg/dL Ur Blood (Man) 2+ H (Negative) Urine Nitrate Negative (Negative) Urine Bilirubin Negative (Negative) Urine Urobilinogen 1.0 (<2.0) mg/dL Add Ur Microanalysis Reviewed Leukocyte Esterase Rfl Negative (Negative) MAGDALENO/UL Urine RBC 21-50 H (0-2) /hpf Urine WBC 0-5 (0-3) /hpf Ur Squamous Epith Cells None seen (Few) /hpf Urine Bacteria None seen /hpf Urine Casts 0-2 Imaging Data Radiologist's impression: ITS Impressions Abdomen/Pelvis CT 11/25/24 10:54 IMPRESSION: 1. Bilateral nephrolithiasis including a 3 mm stones in both the left and right ureters with mild right hydronephrosis is severe renal sinus fat. Correlate with urinalysis to exclude associated ascending urinary tract infection. Discharge Plan Discharge Clinical Impression: Bilateral ureteral calculi Patient Disposition: Still a Patient Condition: Stable
--- NOTE | 2024-11-25 13:07 | P.CONUR_ITS ---
Assessment and Plan Assessment and plan (1) Bilateral ureteral calculi: Code(s): N20.1 - Calculus of ureter Status: Inactive Assessment and Plan: bilateral distal ureteral stones Plan discussed bilateral stones can lead to acute kidney dysfunction and recommend urgent renal decompression with stents. Discussed given normal UA and small stones will be evaluated in OR and potentially plan for b/l URS to extract stones. Stents will be placed regardless given bilateral obstruction. observe over night to ensure no progression of renal dysfunction Urology Consult Note HPI Date Seen: 11/25/24 Requesting Physician: Emergency department Primary Care Provider: Boy Cano, Consult Narrative Narrative: Bhupendra Parikh is a 29 year old male with history of multiple prior kidney stone events who presents emergency department today with right flank pain and found on CT to have small bilateral obstructing ureteral stones. Recent history includes an ER visit on November 18 for sudden onset left flank pain that time a CT scan was performed demonstrating a 3 mm distal left ureteral stone and several nonobstructing renal stones bilaterally. He was discharged home with trial passage. Since going home he has had minimal left flank pain but developed intermittent severe right flank pain over the weekend has passed multiple stone fragments throughout the week. This morning right-sided pain was substantially worse to the point that he felt he needed to return to the emergency department. He denies fevers, chills, hematuria. He has had multiple prior stone events, has never required stone surgery, follows with Dr. Shankar. Believes prior stones are calcium oxalate. Review of Systems 2 Review of Systems: All systems reviewed & are unremarkable except as noted in HPI and below PMFSH Past Medical History Medical History (Updated 11/25/24 @ 13:25 by Jamey Moreno MD) Bilateral ureteral calculi Surgical History Surgical History (Updated 11/25/24 @ 13:25 by Jamey Moreno MD) H/O colonoscopy Social History Social History Smoking status: Never smoker Alcohol intake: never Substance use: never Substance use type: does not use Living arrangements: with family Gender identity (if verbalized by the patient): Male Spiritual care concerns: No Meds Home Medications and Allergies Home Medications Medication Instructions Recorded Confirmed Type alfuzosin 10 mg tablet,extended 10 mg PO HS 02/16/24 03/06/24 History release 24 hr hydrocodone 5 mg-acetaminophen 325 1 tablet PO Q8H PRN pain #14 tabs 11/18/24 Rx mg tablet naproxen 500 mg tablet 500 mg PO BID PRN pain #20 tabs 11/18/24 Rx ondansetron 4 mg disintegrating 4 mg PO Q8H #14 tabs 11/18/24 Rx tablet Allergies Allergy/AdvReac Type Severity Reaction Status Date / Time No Known Allergies Allergy Verified 11/18/24 17:02 Vital Signs Vital Signs - 24 hr 11/25/24 06:35 11/25/24 07:33 11/25/24 09:57 Temperature 36.6 C Pulse Rate 71 62 57 L Respiratory Rate 16 17 20 Blood Pressure 144/75 H 135/79 124/80 Pulse Oximetry 99 100 100 Exam 2 Const: Other: no apparent distress Resp: Other: CTAB Cardio: Other: regular GI: Other: CTAB Results Labs 11/25/24 08:05 11/25/24 08:05 Labs: Short CBC 11/25/24 Range/Units 08:05 WBC 7.9 (4.5-10.0) K/mm3 Hgb 12.7 L (14.0-18.0) g/dL Hct 38.2 L (42.0-52.0) % Plt Count 181 (150-375) k/mm3 BMP 11/25/24 08:05 Sodium 142 Potassium 3.9 Chloride 109 H Carbon Dioxide 25 BUN 22 H Creatinine 1.26 Glucose 95 Calcium 9.2 Liver Function 11/25/24 Range/Units 08:05 Total Bilirubin 0.7 (0.2-1.3) mg/dL AST 37 (17-59) U/L ALT 33 (6-50) U/L Alkaline Phosphatase 61 (38-126) U/L Albumin 4.3 (3.5-5.1) g/dL Urine 11/25/24 Range/Units 08:05 Urine Color Dark yellow (Yellow) Urine Appearance Clear (Clear) Urine pH 5.5 (5.0-9.0) Ur Specific [place] 1.035 (1.001-1.035) Urine Protein Trace (Negative) mg/dL Urine Glucose (UA) Negative (Negative) mg/dL Imaging Radiologist's impression: IMPRESSION: 1. Bilateral nephrolithiasis including a 3 mm stones in both the left and right ureters with mild right hydronephrosis is severe renal sinus fat. Correlate with urinalysis to exclude associated ascending urinary tract infection.
--- NOTE | 2024-11-25 13:25 | WPDANESEPPF ---
Anes - Initial Pre Proc Eval Procedure: Operation Date: 11/25/24 13:30 Proposed Procedures p Cysto, RPG, Stone Ext, Stent Placement - Brant Bender MD Date/Time: 11/25/24 13:25 Pre Op Diagnosis: rlq abd pain Patient Data Age: 29 Gender: M Height: 1.88 m Weight: 103.63 kg Last Vital Signs Temp 36.6 C 11/25/24 06:35 Pulse 57 L 11/25/24 09:57 Resp 20 11/25/24 09:57 BP 124/80 11/25/24 09:57 Pulse Ox 100 11/25/24 09:57 Allergies Allergy/AdvReac Type Severity Reaction Status Date / Time No Known Allergies Allergy Verified 11/18/24 17:02 Home Medications Medication Instructions Recorded Confirmed Type alfuzosin 10 mg tablet,extended 10 mg PO HS 02/16/24 03/06/24 History release 24 hr hydrocodone 5 mg-acetaminophen 325 1 tablet PO Q8H PRN pain #14 tabs 11/18/24 Rx mg tablet naproxen 500 mg tablet 500 mg PO BID PRN pain #20 tabs 11/18/24 Rx ondansetron 4 mg disintegrating 4 mg PO Q8H #14 tabs 11/18/24 Rx tablet Laboratory Tests 11/25/24 08:05 WBC 7.9 K/mm3 (4.5-10.0) RBC 4.27 L M/mm3 (4.6-6.20) Hgb 12.7 L g/dL (14.0-18.0) Hct 38.2 L % (42.0-52.0) MCV 89.5 fl (80-100) MCH 29.7 pg (26-34) MCHC 33.2 g/dl (32-36) RDW 12.1 % (11.5-14.5) Plt Count 181 k/mm3 (150-375) MPV 10.3 fl (7.4-10.4) Immature Gran % (Auto) 0.3 % (0-0.5) Neut % (Auto) 80.8 H % (45.5-73.1) Lymph % (Auto) 12.4 L % (18.3-44.2) [place] % (Auto) 5.7 % (2.6-8.5) Eos % (Auto) 0.4 % (0-4.4) Baso % (Auto) 0.4 % (0.2-1.2) Lymph # (Auto) 0.98 K/mm3 (0.9-3.2) Weber # (Auto) 0.5 K/mm3 (0.1-0.6) Eos # (Auto) 0.0 K/mm3 (0-0.3) Baso # (Auto) 0.0 K/mm3 (0.0-0.1) Abs Immat Gran (auto) 0.02 K/mm3 (0.00-0.031) Absolute Neuts (auto) 6.4 K/mm3 (1.3-6.7) Absolute Nucleated RBC 0.000 K/mm3 (0.0-0.012) Nucleated RBC % 0.0 % (0.0-0.2) Sodium 142 mmol/L (137-145) Potassium 3.9 mmol/L (3.4-5.0) Chloride 109 H mmol/L (98-107) Carbon Dioxide 25 mmol/L (22-30) Anion Gap 8 mmol/L (4-12) BUN 22 H mg/dL (9-20) Creatinine 1.26 mg/dL (0.7-1.3) Estim Creat Clear Calc 88 ml/min Estimated GFR > 60 (59 - ) Glucose 95 mg/dL (65-110) Calcium 9.2 mg/dL (8.4-10.2) Total Bilirubin 0.7 mg/dL (0.2-1.3) AST 37 U/L (17-59) ALT 33 U/L (6-50) Alkaline Phosphatase 61 U/L (38-126) Total Protein 7.0 g/dL (6.3-8.2) Albumin 4.3 g/dL (3.5-5.1) Lipase 54 U/L (23-300) Urine Color Dark yellow (Yellow) Urine Appearance Clear (Clear) Urine pH 5.5 (5.0-9.0) Ur Specific [place] 1.035 (1.001-1.035) Urine Protein Trace mg/dL (Negative) Urine Glucose (UA) Negative mg/dL (Negative) Urine Ketones Trace H mg/dL (Negative) Ur Blood (Man) 2+ H (Negative) Urine Nitrate Negative (Negative) Urine Bilirubin Negative (Negative) Urine Urobilinogen 1.0 mg/dL (<2.0) Add Ur Microanalysis Reviewed Leukocyte Esterase Rfl Negative MAGDALENO/UL (Negative) Urine RBC 21-50 H /hpf (0-2) Urine WBC 0-5 /hpf (0-3) Ur Squamous Epith Cells None seen /hpf (Few) Urine Bacteria None seen /hpf Urine Casts 0-2 Patient hx anesthesia problems: none Family hx anesthesia problems: none Results Review: All pre-operative results and documents have been reviewed as part of the pre-operative evaluation. [facility] Past Medical History Medical History (Updated 11/25/24 @ 13:25 by Jamey Moreno MD) Bilateral ureteral calculi Surgical History Surgical History (Updated 11/25/24 @ 13:25 by Jamey Moreno MD) H/O colonoscopy Social History Social History Smoking status: Never smoker Alcohol intake: never Substance use: never Substance use type: does not use Living arrangements: with family Gender identity (if verbalized by the patient): Male Spiritual care concerns: No Anes - Eval Final PreProcedure Day of Procedure 11/25/24 13:25 Patient weight: overweight Heart: regular rate and rhythm Lungs: clear to auscultation Airway: Mallampati scale class II Neurological: alert and oriented Last oral intake: >/= 8 hours ASA classification: II Emergent: no Anesthetic plan: proceed Anesthesia type and monitoring: general LMA and standard monitoring Results Review: All pre-operative results and documents have been reviewed as part of the pre-operative evaluation. Informed Consent: The patient's anesthetic plan and its attendant risks and benefits were discussed with the patient/family/POA. Questions were solicited and answers provided to the satisfaction of the patient/family/POA.
--- NOTE | 2024-11-25 14:06 | W.PM.PROC2 ---
Procedure Note - Detailed Date of Procedure 11/25/24 Pre-op Diagnosis Bilateral ureteral stones Post-op Diagnosis Same Procedure Performed Cystoscopy, bilateral retrograde pyelogram, bilateral ureteroscopy, right distal ureteral stone extraction, bilateral ureteral stent placement Surgeon Brant Bender MD Anesthesia General Indications 29-year-old man who presented emergency department with right flank pain found to have bilateral ureteral stones on imaging taken emergently to the operating room for management. Findings Stone in right ureterovesical junction with mild proximal dilation Stone in left ureter just below iliac vessels Description of Procedure After obtaining informed consent we proceeded operating room. The patient was placed in supine position. SCD visualized. Given dose of Rocephin. General anesthesia was induced he was then placed in lithotomy position prepped and draped in usual sterile manner. He began passing well lubricated 22 Serbian cystoscope per the urethra into the bladder. The bladder was emptied of all urine. For colonoscopic evaluation of bladder and there were no obvious abnormalities identified. I then focused my attention on the right year orifice. This cannulated with 5 Serbian catheter. Gentle retrograde pyelogram demonstrated a small filling defect at the UVJ consistent with stone very mild proximal dilation but no other intraureteral filling defects. Sensor wire was passed into the ureter up into the level renal pelvis. A 8-10 dilator was used to gently dilate the distal ureter. A semi rigid ureteral scope was then passed in distal ureter. Just proximal to the UVJ a small stone was visualized within the ureter. This was grasped with a Zero tip basket and easily extraction. It was collected and sent for stone analysis. I then passed the scope into the mid ureter. Due to have bladder neck was not able to passed beyond the iliacs. However on imaging there were no proximal stones I do not see any in the ureter that was visualized and withdrew the scope. Then focused on the left ureteral orifice. This was similarly cannulated with 5 Serbian catheter. Gentle retrograde pyelogram demonstrated a somewhat narrow distal ureter with a filling defect consistent with stone just below the iliac vessels. A Sensor wire was passed. A 8 10 dilator was used to dilate the distal ureter. I attempted to pass a semi rigid scope. I was able to enter the ureter. I was not able to pass this beyond a few cm into the ureter due to combination of a somewhat narrow ureter and high bladder neck. Flexible ureteral scope was used. I again attempted to pass this to the level of the stone but met mild resistance in the distal ureter given this I did not force the scope further proximal end was not able to visualize the stone. I elected to place a stent on the side for passive dilation. Next under fluoroscopic and visual laceration I placed bilateral stents. A 6 Serbian variable length stent was placed on the right without issue. Subsequently a 6 Serbian variable length stent was placed beyond the stone into the renal pelvis on the left. After both stents were positioned completion x-ray confirmed good curl in the renal pelvis on both sides as well as within the bladder. The bladder was emptied of all urine. Scope was withdrawn. This concluded the procedure which the patient tolerated without apparent complication. Plan for the patient to be admitted to the hospital for observation overnight to ensure renal function improves. He will need follow-up procedure to address left-sided stones at a later date.
[2024-11-25] MEDS: LACTATED RINGERS 1,000 ML 30 ML IV CONT (14:13)
[2024-11-25] MEDS: fentaNYL CITRATE INJ (*CRX) 100 MCG/2 ML VIAL 25 MCG IV PUSH ×8 (14:40→14:55)
--- NOTE | 2024-11-25 15:03 | P.HP_ITS ---
H&P: HPI History of Present Illness Date/Time: 11/25/24 15:03 Chief Complaint: Abdominal pain Narrative: 29-year-old male history of kidney stones presents the hospital with abdominal pain. Patient seen after procedure with . He states that he has severe burning and spasming like pain when urinating after the procedure. Patient states that he is able to drink without nausea vomiting. Patient denies fever chills. On patient's lab work EF the hemoglobin of 12.7, chloride of 109, BUN of 22, creatinine of 1.26 with baseline being around 0.9, patient's UA is negative for infection. Review of Systems Review of Systems: 12 systems were reviewed and are negativ e except for as per HPI. [facility] Past Medical History Medical History (Updated 11/25/24 @ 23:54 by Melissa Arroyo APRN) Bilateral ureteral calculi Surgical History Surgical History (Updated 11/25/24 @ 13:25 by Jamey Moreno MD) H/O colonoscopy Family History Family History (Updated 11/25/24 @ 15:54 by Fe Hernández RN) Father Kidney stones Mother Breast cancer Grandparent Kidney malignancy Grandparent Congestive heart failure Atrial fibrillation Alzheimer disease Father Irritable bowel syndrome (IBS) Grandparent Lung cancer Social History Social History Smoking status: Never smoker Alcohol intake: never Substance use: never Substance use type: does not use Do You Feel Safe in your Home?: Yes Lack of Transportation: No Lack of Food: Never True Current Housing: I Have Housing Concerned About Future Housing: No Difficulty Paying Gas/Electric Bills: No Difficulty Paying for Meds: No Currently Unemployed: No Education: Bachelor's Degree Difficulty w/ Childcare or Family Care: No Living arrangements: with family Gender identity (if verbalized by the patient): Male Spiritual care concerns: No Meds Home Medications and Allergies Home Medications Medication Instructions Recorded Confirmed Type alfuzosin 10 mg tablet,extended 10 mg PO HS 02/16/24 11/25/24 History release 24 hr hydrocodone 5 mg-acetaminophen 325 1 tablet PO Q8H PRN pain #14 tabs 11/18/24 11/25/24 Rx mg tablet naproxen 500 mg tablet 500 mg PO BID PRN pain #20 tabs 11/18/24 11/25/24 Rx ondansetron 4 mg disintegrating 4 mg PO Q8H #14 tabs 11/18/24 11/25/24 Rx tablet Allergies Allergy/AdvReac Type Severity Reaction Status Date / Time lactose Allergy Intermediate Diarrhea Verified 11/25/24 15:59 Vital Signs Vital Signs - 24 hr 11/25/24 06:35 11/25/24 07:33 11/25/24 09:57 Temperature 97.8 F Pulse Rate 71 62 57 L Respiratory Rate 16 17 20 Blood Pressure 144/75 H 135/79 124/80 Pulse Oximetry 99 100 100 Oxygen Delivery Oxygen Flow Rate 11/25/24 14:13 11/25/24 14:15 11/25/24 14:30 Temperature 98.4 F Pulse Rate 75 68 63 Respiratory Rate 15 12 12 Blood Pressure 90/54 L 93/50 L 92/55 L Pulse Oximetry 99 100 100 Oxygen Delivery Simple Face Mask Simple Face Mask Room Air Oxygen Flow Rate 10 10 11/25/24 14:45 11/25/24 14:55 11/25/24 15:00 Temperature Pulse Rate 79 62 64 Respiratory Rate 12 12 12 Blood Pressure 121/64 121/79 117/59 L Pulse Oximetry 98 98 98 Oxygen Delivery Room Air Room Air Room Air Oxygen Flow Rate Exam Narrative: General: well appearing, appears stated age. HEENT: normocephalic, atraumatic. Mucous membranes moist. EOMI, PERRLA, bilateral sclera anicteric, no conjunctival injection. Neck supple without JVD, lymphadenopathy, or bruit. Respiratory: clear to ascultation bilaterally. No rales/rhonic/wheezes. Cardiovascular: Regular rate and rhythm, normal S1-S2 upon ascultation. No murmurs, rubs, or clicks. PMI is nondisplaced, capillary refill less than 3 second. Abdomen: Soft, round, no pulsatile masses, nondistended and nontender. No re bound, no guarding. No CVA tenderness, no hepatosplenomegaly. Bowel sounds present to all four quadrants. No high pitch or tinkling sounds, resonant to percussion. Extremities: No cyanosis, clubbing, or edema present. Pulses are palpable 2/2. Active ROM to all four extremities. Neuro: Alert and orientated x 4. PERRLA. Cranial nerves 2-12 intact without focal deficit. Skin: Warm, dry, and intact, without rash, erythema, or lesion. Psych: pleasant, cooperative, normal speech, normal affect, no hallucinations, no dysarthia H&P: Results Labs Labs: Short CBC 11/25/24 Range/Units 08:05 WBC 7.9 (4.5-10.0) K/mm3 Hgb 12.7 L (14.0-18.0) g/dL Hct 38.2 L (42.0-52.0) % Plt Count 181 (150-375) k/mm3 BMP 11/25/24 08:05 Sodium 142 Potassium 3.9 Chloride 109 H Carbon Dioxide 25 BUN 22 H Creatinine 1.26 Glucose 95 Calcium 9.2 Liver Function 11/25/24 Range/Units 08:05 Total Bilirubin 0.7 (0.2-1.3) mg/dL AST 37 (17-59) U/L ALT 33 (6-50) U/L Alkaline Phosphatase 61 (38-126) U/L Albumin 4.3 (3.5-5.1) g/dL Urine 11/25/24 Range/Units 08:05 Urine Color Dark yellow (Yellow) Urine Appearance Clear (Clear) Urine pH 5.5 (5.0-9.0) Ur Specific [place] 1.035 (1.001-1.035) Urine Protein Trace (Negative) mg/dL Urine Glucose (UA) Negative (Negative) mg/dL Assessment and Plan Assessment and plan (1) Bilateral ureteral calculi: Code(s): N20.1 - Calculus of ureter Status: Acute Assessment and Plan: consulted Status postCystoscopy, bilateral retrograde pyelogram, bilateral ureteroscopy, right distal ureteral stone extraction, bilateral ureteral stent placement (2) CARLA (acute kidney injury): Code(s): N17.9 - Acute kidney failure, unspecified Status: Acute Assessment and Plan: IV fluids for hydration Repeat BMP in the morning (3) Bladder spasm: Code(s): N32.89 - Other specified disorders of bladder Status: Acute Assessment and Plan: Oxybutynin (4) Acute pain: Code(s): R52 - Pain, unspecified Status: Acute Assessment and Plan: Toradol [place] Quality VTE Prophylaxis VTE prophylaxis: mechanical ordered If No VTE Prophylaxis Answer both mechanical and pharmacologic: Reason no pharmacologic proph: low risk/not indicated Hospitalist MIPS Advance Care Plan I have confirmed that the patient's Advanced Care Plan is present, code status is documented, or surrogate decision maker is listed in patient medical record.: Yes Medication Reconciliation I have utilized all available resources to obtain, update and review the patients current medications (includes all prescriptions, OTC, herbals, cannabi s, and nutritional supplements).: Yes
--- NOTE | 2024-11-25 15:47 | ADMGEN ---
This patient, Bhupendra Parikh, was admitted to Medical Room 345-01. Patient/family oriented to hospital policies and general routines including ID bracelet, bed and alarms, visiting hours, pain management, procedures, bathroom and other care routines, personal items, smoking policy, room service/diet, and visiting hours. Information on how to activate the Rapid Response Team has been discussed. Patient/Family are encouraged to report perceived risks to care and to ask questions if they do not understand what they are told or what they should do.
[2024-11-25] MEDS: HYDROcodone/acetaminophen (*CRX) 5-325 MG TABLET 1 TAB PO ×2 (16:06→20:43)
[2024-11-25] MEDS: DOCUSATE SODIUM 100 MG CAPSULE PO (16:07)
[2024-11-25] MEDS: SODIUM CHLORIDE 0.9% IV 1,000 ML 125 ML IV CONT (16:08)
[2024-11-25] MEDS: KETOROLAC 15 MG/ML VIAL (*BKC) IV PUSH (17:14)
[2024-11-26] MEDS: KETOROLAC 15 MG/ML VIAL (*BKC) IV PUSH ×2 (00:02→05:27)
[2024-11-26] MEDS: oxyBUTYnin CHLORIDE 2.5 MG TAB PO ×4 (00:04→17:37)
[2024-11-26] MEDS: HYDROcodone/acetaminophen (*CRX) 5-325 MG TABLET 1 TAB PO ×5 (00:52→23:45)
[2024-11-26] MEDS: SODIUM CHLORIDE 0.9% IV 1,000 ML 125 ML IV CONT ×3 (00:52→17:36)
[2024-11-26 05:34] VITALS: BP 113/71; PULSE 57; RESP 16; TEMP 36.6; O2SAT 99
[2024-11-26 05:46] LABS: Anion Gap 7 mmol/L (4-12); Blood Urea Nitrogen 19 mg/dL (9-20); Calcium 8.8 mg/dL (8.4-10.2); Carbon Dioxide 24 mmol/L (22-30); Chloride 109 mmol/L (98-107); Estimated CRCL calculation 118 ml/min; Estimated Glomerular Filt Rate > 60; Glucose 110 mg/dL (65-110); Potassium 4.2 mmol/L (3.4-5.0); Sodium 140 mmol/L (137-145)
[2024-11-26 05:57] LABS: Iron 76 ug/dL (49-181)
[2024-11-26 06:07] LABS: Percent Iron Saturation 24 % (20-50)
[2024-11-26 06:14] LABS: Hematocrit 48.5 % (42.0-52.0); Hemoglobin 16.3 g/dL (14.0-18.0); Immature Granulocyte Absolute 0.03 K/mm3 (0.00-0.031); Immature Granulocyte Percent A 0.5 % (0-0.5); Lymphocytes Absolute Auto 0.43 K/mm3 (0.9-3.2); Lymphocytes Percent Auto 6.6 % (18.3-44.2); Mean Corpuscular HGB Conc 33.6 g/dl (32-36); Mean Corpuscular Hemoglobin 29.6 pg (26-34); Mean Corpuscular Volume 88.2 fl (80-100); Mean Platelet Volume 10.5 fl (7.4-10.4); Monocytes Absolute Auto 0.2 K/mm3 (0.1-0.6); Monocytes Percent Auto 3.5 % (2.6-8.5); Neutrophils Absolute Auto 5.9 K/mm3 (1.3-6.7); Neutrophils Percent Auto 89.4 % (45.5-73.1); Platelet Count Result 116 k/mm3 (150-375); White Blood Count 6.6 K/mm3 (4.5-10.0)
[2024-11-26 06:53] LABS: Folic Acid 4.1 ng/mL (2.76->20)
[2024-11-26] MEDS: DOCUSATE SODIUM 100 MG CAPSULE PO (09:31)
--- NOTE | 2024-11-26 10:01 | PM.IMPN ---
Subjective Date/time seen: 11/26/24 10:01 Review of Systems Review of Systems: All systems reviewed & are unremarkable except as noted in HPI and below Objective Data Vital Signs Vital Signs: Vital Signs - 24 hr 11/25/24 14:13 11/25/24 14:15 11/25/24 14:30 Temperature 98.4 F Pulse Rate 75 68 63 Respiratory Rate 15 12 12 Blood Pressure 90/54 L 93/50 L 92/55 L Pulse Oximetry 99 100 100 Oxygen Delivery Simple Face Mask Simple Face Mask Room Air Oxygen Flow Rate 10 10 11/25/24 14:45 11/25/24 14:55 11/25/24 15:00 Temperature Pulse Rate 79 62 64 Respiratory Rate 12 12 12 Blood Pressure 121/64 121/79 117/59 L Pulse Oximetry 98 98 98 Oxygen Delivery Room Air Room Air Room Air Oxygen Flow Rate 11/25/24 15:24 11/25/24 15:40 11/25/24 16:19 Temperature 97.7 F 97.7 F 97.8 F Pulse Rate 54 L 61 57 L Respiratory Rate 18 16 18 Blood Pressure 118/72 113/69 112/66 Pulse Oximetry 99 99 98 Oxygen Delivery Oxygen Flow Rate 11/25/24 18:00 11/25/24 20:11 11/26/24 05:34 Temperature 97.6 F 98.3 F 97.9 F Pulse Rate 62 81 57 L Respiratory Rate 18 16 16 Blood Pressure 119/73 118/73 113/71 Pulse Oximetry 98 100 99 Oxygen Delivery Oxygen Flow Rate 11/26/24 08:30 Temperature Pulse Rate Respiratory Rate Blood Pressure Pulse Oximetry Oxygen Delivery Room Air Oxygen Flow Rate Intake/Output Intake/Output: Intake & Output 11/23/24 11/24/24 11/25/24 11/26/24 23:59 23:59 23:59 23:59 Intake Total 0 2250 Balance 0 2250 Meds/Results Medications: Active Medications Generic Name Dose Route Start Last Admin Trade Name Freq PRN Reason Stop Dose Admin Acetaminophen 650 mg 11/25/24 15:04 Acetaminophen 325 Mg Tablet PO Q4H PRN Mild Pain (1-3) or Fever Hydrocodone Bitart/Acetaminophen 1 tab 11/25/24 15:04 11/26/24 09:31 Hydrocodone/Acetaminophen (*Crx) 5-325 Mg Tablet PO 1 tab Q4H PRN Administration Moderate Pain (4-6) Alfuzosin HCl 10 mg 11/25/24 21:00 11/26/24 00:07 Alfuzosin 10 Mg Er Tablet PO Not Given HS BRIANNA Docusate Sodium 100 mg 11/25/24 17:00 11/26/24 09:31 Docusate Sodium 100 Mg Capsule PO 100 mg BID BRIANNA Administration Fentanyl Citrate 25 mcg 11/25/24 13:26 11/25/24 14:55 Fentanyl Citrate Inj (*Crx) 100 Mcg/2 Ml Vial IV PUSH 25 mcg Q2M PRN Administration Pain Sodium Chloride 1,000 mls @ 125 mls/hr 11/25/24 13:05 11/26/24 09:32 Normal Saline Iv IV CONT 125 mls/hr .Q8H BRIANNA Administration Lactated Ringer's 1,000 mls @ 30 mls/hr 11/25/24 13:30 11/25/24 14:13 Lr - Lactated Ringers Iv IV CONT 30 mls/hr .Q24H BRIANNA Administration Lactated Ringer's 1,000 mls @ 30 mls/hr 11/25/24 13:30 11/25/24 17:07 Lr - Lactated Ringers Iv IV CONT Not Given .Q24H BRIANNA Ketorolac Tromethamine 15 mg 11/25/24 15:25 11/26/24 05:27 Ketorolac 15 Mg/Ml Vial (*Bkc) IV PUSH 15 mg Q6HR BRIANNA Administration Morphine Sulfate 2 mg 11/25/24 13:02 Morphine Sulfate (*Crx) 2 Mg/Ml Inj IV PUSH Q2H PRN Pain Rated 7-10 Ondansetron HCl 4 mg 11/25/24 13:02 Ondansetron Inj 4 Mg/2 Ml Vial IV PUSH Q4H PRN Nausea Ondansetron HCl 4 mg 11/25/24 13:26 Ondansetron Inj 4 Mg/2 Ml Vial IV PUSH ONCE PRN Nausea Oxybutynin Chloride 2.5 mg 11/25/24 23:50 11/26/24 09:34 Oxybutynin Chloride 2.5 Mg Tab PO 2.5 mg TID BRIANNA Administration Oxycodone HCl 5 mg 11/25/24 13:26 Oxycodone Hcl (*Crx) 5 Mg Tab Ir PO ONCE PRN Pain Radiology Results: ITS Impressions Abdomen/Pelvis CT 11/25/24 10:54 IMPRESSION: 1. Bilateral nephrolithiasis including a 3 mm stones in both the left and right ureters with mild right hydronephrosis is severe renal sinus fat. Correlate with urinalysis to exclude associated ascending urinary tract infection. Labs Labs: Laboratory Results - last 24 hr 11/26/24 05:07 WBC 6.6 RBC 5.50 Hgb 16.3 D Hct 48.5 MCV 88.2 MCH 29.6 MCHC 33.6 RDW 12.0 Plt Count 116 L MPV 10.5 H Immature Gran % (Auto) 0.5 Neut % (Auto) 89.4 H Lymph % (Auto) 6.6 L [place] % (Auto) 3.5 Eos % (Auto) 0.0 Baso % (Auto) 0.0 L Lymph # (Auto) 0.43 L [place] # (Auto) 0.2 Eos # (Auto) 0.0 Baso # (Auto) 0.0 Abs Immat Gran (auto) 0.03 Absolute Neuts (auto) 5.9 Absolute Nucleated RBC 0.000 Nucleated RBC % 0.0 Sodium 140 Potassium 4.2 Chloride 109 H Carbon Dioxide 24 Anion Gap 7 BUN 19 Creatinine 0.93 Estim Creat Clear Calc 118 Estimated GFR > 60 Glucose 110 Calcium 8.8 Iron 76 TIBC 315 % Saturation 24 Ferritin 53.00 Vitamin B12 172.0 L Folate 4.1
--- NOTE | 2024-11-26 10:05 | P.PNUR_ITS ---
Progress Note: A&P Assessment and Plan (1) Bilateral ureteral calculi: Code(s): N20.1 - Calculus of ureter Status: Acute Assessment and Plan: Status post right ureteroscopy with stone extraction and stent and left ureteroscopy with inability to reach stone and stent placement on 11/25/2024. -patient with some stent-related discomfort continue oxybutynin 5 mg 3 times daily -continue alfuzosin 0.4 mg daily -can continue pain medications and Tylenol ibuprofen as needed Can add AZO p.r.n.. -patient will need outpatient follow-up for left ureteroscopy, stone extraction, and stent management. Should plan for this in 1-2 weeks. Our office will reach out to him to try and arrange this, previously he had had issues with insurance network coverage and our group. He has a urologist in [facility] he can also follow-up with if insurance is an issue. -okay for discharge from Urology perspective (2) CARLA (acute kidney injury): Code(s): N17.9 - Acute kidney failure, unspecified Status: Acute Plan Improved today. Subjective Subjective Date/Time Seen: 11/26/24 10:05 Interval history: Overnight has had some issues with bladder spasms on voiding, the rest is comfortable. No fevers, no chills, creatinine improved today. Exam Const: Other: No apparent distress Resp: Effort & Inspection: normal respiratory effort Cardio: Rate: regular rate GI: Other: Soft, nontender, nondistended Objective Data Vital Signs Vital Signs: Vital Signs - 24 hr 11/25/24 14:13 11/25/24 14:15 11/25/24 14:30 Temperature 36.9 C Pulse Rate 75 68 63 Respiratory Rate 15 12 12 Blood Pressure 90/54 L 93/50 L 92/55 L Pulse Oximetry 99 100 100 Oxygen Delivery Simple Face Mask Simple Face Mask Room Air Oxygen Flow Rate 10 10 11/25/24 14:45 11/25/24 14:55 11/25/24 15:00 Temperature Pulse Rate 79 62 64 Respiratory Rate 12 12 12 Blood Pressure 121/64 121/79 117/59 L Pulse Oximetry 98 98 98 Oxygen Delivery Room Air Room Air Room Air Oxygen Flow Rate 11/25/24 15:24 11/25/24 15:40 11/25/24 16:19 Temperature 36.5 C 36.5 C 36.6 C Pulse Rate 54 L 61 57 L Respiratory Rate 18 16 18 Blood Pressure 118/72 113/69 112/66 Pulse Oximetry 99 99 98 Oxygen Delivery Oxygen Flow Rate 11/25/24 18:00 11/25/24 20:11 11/26/24 05:34 Temperature 36.4 C 36.8 C 36.6 C Pulse Rate 62 81 57 L Respiratory Rate 18 16 16 Blood Pressure 119/73 118/73 113/71 Pulse Oximetry 98 100 99 Oxygen Delivery Oxygen Flow Rate 11/26/24 08:30 Temperature Pulse Rate Respiratory Rate Blood Pressure Pulse Oximetry Oxygen Delivery Room Air Oxygen Flow Rate Intake/Output Intake/Output: Intake & Output 11/23/24 11/24/24 11/25/24 11/26/24 23:59 23:59 23:59 23:59 Intake Total 0 2250 Balance 0 2250 Meds/Results Medications: Active Medications Generic Name Dose Route Start Last Admin Trade Name Freq PRN Reason Stop Dose Admin Acetaminophen 650 mg 11/25/24 15:04 Acetaminophen 325 Mg Tablet PO Q4H PRN Mild Pain (1-3) or Fever Hydrocodone Bitart/Acetaminophen 1 tab 11/25/24 15:04 11/26/24 09:31 Hydrocodone/Acetaminophen (*Crx) 5-325 Mg Tablet PO 1 tab Q4H PRN Administration Moderate Pain (4-6) Alfuzosin HCl 10 mg 11/25/24 21:00 11/26/24 00:07 Alfuzosin 10 Mg Er Tablet PO Not Given HS BRIANNA Docusate Sodium 100 mg 11/25/24 17:00 11/26/24 09:31 Docusate Sodium 100 Mg Capsule PO 100 mg BID BRIANNA Administration Fentanyl Citrate 25 mcg 11/25/24 13:26 11/25/24 14:55 Fentanyl Citrate Inj (*Crx) 100 Mcg/2 Ml Vial IV PUSH 25 mcg Q2M PRN Administration Pain Sodium Chloride 1,000 mls @ 125 mls/hr 11/25/24 13:05 11/26/24 09:32 Normal Saline Iv IV CONT 125 mls/hr .Q8H BRIANNA Administration Lactated Ringer's 1,000 mls @ 30 mls/hr 11/25/24 13:30 11/25/24 14:13 Lr - Lactated Ringers Iv IV CONT 30 mls/hr .Q24H BRIANNA Administration Lactated Ringer's 1,000 mls @ 30 mls/hr 11/25/24 13:30 11/25/24 17:07 Lr - Lactated Ringers Iv IV CONT Not Given .Q24H BRIANNA Morphine Sulfate 2 mg 11/25/24 13:02 Morphine Sulfate (*Crx) 2 Mg/Ml Inj IV PUSH Q2H PRN Pain Rated 7-10 Ondansetron HCl 4 mg 11/25/24 13:02 Ondansetron Inj 4 Mg/2 Ml Vial IV PUSH Q4H PRN Nausea Ondansetron HCl 4 mg 11/25/24 13:26 Ondansetron Inj 4 Mg/2 Ml Vial IV PUSH ONCE PRN Nausea Oxybutynin Chloride 2.5 mg 11/25/24 23:50 11/26/24 09:34 Oxybutynin Chloride 2.5 Mg Tab PO 2.5 mg TID BRIANNA Administration Oxycodone HCl 5 mg 11/25/24 13:26 Oxycodone Hcl (*Crx) 5 Mg Tab Ir PO ONCE PRN Pain Radiology Results: ITS Impressions Abdomen/Pelvis CT 11/25/24 10:54 IMPRESSION: 1. Bilateral nephrolithiasis including a 3 mm stones in both the left and right ureters with mild right hydronephrosis is severe renal sinus fat. Correlate with urinalysis to exclude associated ascending urinary tract infection. Labs Labs: Laboratory Results - last 24 hr 11/26/24 05:07 WBC 6.6 RBC 5.50 Hgb 16.3 D Hct 48.5 MCV 88.2 MCH 29.6 MCHC 33.6 RDW 12.0 Plt Count 116 L MPV 10.5 H Immature Gran % (Auto) 0.5 Neut % (Auto) 89.4 H Lymph % (Auto) 6.6 L [place] % (Auto) 3.5 Eos % (Auto) 0.0 Baso % (Auto) 0.0 L Lymph # (Auto) 0.43 L [place] # (Auto) 0.2 Eos # (Auto) 0.0 Baso # (Auto) 0.0 Abs Immat Gran (auto) 0.03 Absolute Neuts (auto) 5.9 Absolute Nucleated RBC 0.000 Nucleated RBC % 0.0 Sodium 140 Potassium 4.2 Chloride 109 H Carbon Dioxide 24 Anion Gap 7 BUN 19 Creatinine 0.93 Estim Creat Clear Calc 118 Estimated GFR > 60 Glucose 110 Calcium 8.8 Iron 76 TIBC 315 % Saturation 24 Ferritin 53.00 Vitamin B12 172.0 L Folate 4.1
--- NOTE | 2024-11-26 12:45 | PC.NURSE ---
RN talked to Dr. Bender about patient's uncontrolled pain and concerns about going home. said it would be ok for him to stay for pain management.
--- NOTE | 2024-11-26 13:04 | WPDANESPN ---
Anes - Prog Note Post-Op Date/Time: 11/26/24 13:04 Cardiovascular status: normal Respiratory status: normal Airway patency: baseline Mental status: baseline Post-Op hydration status: normal Vital Signs: Last Vital Signs Temp 36.6 C 11/26/24 05:34 Pulse 57 L 11/26/24 05:34 Resp 16 11/26/24 05:34 BP 113/71 11/26/24 05:34 Pulse Ox 99 11/26/24 05:34 O2 Del Method Room Air 11/26/24 08:30 O2 Flow Rate 10 11/25/24 14:15 Pain Score (VAS): 0 I/O: Intake & Output 11/25/24 11/26/24 11/26/24 23:59 07:59 15:59 Intake Total 0 1250 1000 Balance 0 1250 1000 Laboratory Tests 11/26/24 05:07 11/26/24 05:07 11/26/24 05:07 WBC 6.6 RBC 5.50 Hgb 16.3 D Hct 48.5 MCV 88.2 MCH 29.6 MCHC 33.6 RDW 12.0 Plt Count 116 L MPV 10.5 H Immature Gran % (Auto) 0.5 Neut % (Auto) 89.4 H Lymph % (Auto) 6.6 L [place] % (Auto) 3.5 Eos % (Auto) 0.0 Baso % (Auto) 0.0 L Lymph # (Auto) 0.43 L [place] # (Auto) 0.2 Eos # (Auto) 0.0 Baso # (Auto) 0.0 Abs Immat Gran (auto) 0.03 Absolute Neuts (auto) 5.9 Absolute Nucleated RBC 0.000 Nucleated RBC % 0.0 Sodium 140 Potassium 4.2 Chloride 109 H Carbon Dioxide 24 Anion Gap 7 BUN 19 Creatinine 0.93 Estim Creat Clear Calc 118 Estimated GFR > 60 Glucose 110 Calcium 8.8 Iron 76 TIBC 315 % Saturation 24 Ferritin 53.00 Vitamin B12 172.0 L Folate 4.1 Post-procedural complaints: none Patient Feedback: Patient satisfied with anesthetic care.
[2024-11-26] MEDS: CYANOCOBALAMIN INJ 1,000 MCG/ML VIAL 1000 MCG IM (13:24)
[2024-11-26 14:00] VITALS: BP 117/61; PULSE 67; RESP 16; TEMP 36.2; O2SAT 100
--- NOTE | 2024-11-26 14:23 | PM.IMPN ---
Progress Note: A&P Assessment and Plan (1) Bilateral ureteral calculi: Code(s): N20.1 - Calculus of ureter Status: Acute Assessment and Plan: Abdomen/pelvis CT showing bilateral nephrolithiasis including a 3 mm stones in both the left and right ureters with mild right hydronephrosis is severe renal sinus fat. UA nonconcerning for infection -Stent related discomfort Oxybutynin 2.5 mg TID and baclofen 5 mg q8h -Continue alfuzosin 0.4 mg daily Urology consulted - Status post right ureteroscopy with stone extraction and stent and left ureteroscopy with inability to reach stone and stent placement on 11/25/[address] Cool - Follow-up for left ureteroscopy, stone extraction, and stent management. Should plan for this in 1-2 weeks. Patient continues to have severe pain is concerned about management at home. Started on baclofen and remains on oxybutynin and [place] for pain control. He has also not had a BM and is endorsing abdominal cramping as he is fearful to have a BM secondary to increased pain. Started on MiraLax and senna. Will remain inpatient for further pain control. Time Spent With Patient Time with patient: 25 - 35 minutes Subjective Date/time seen: 11/26/24 14:23 Interval history: 29-year-old male without a significant past medical history presents to the hospital for abdominal pain. Patient is pleasant sitting up comfortably in his bed with family at bedside. He continues to have severe pain especially with urination and is concerned about pain management when at home. He remains on oxybutynin and [place] and was started on baclofen by Urology. He also notes that he has not had a BM but is passing gas. He is fearful to have a BM due to increased abdominal pain especially on the left. Started on MiraLax and senna. Patient remains in patient for pain management. He has no other complaints denies chest pain, shortness a breath, nausea/vomiting, and palpitations. Review of Systems Review of Systems: All systems reviewed & are unremarkable except as noted in HPI and below Exam Narrative: AF HR 57 RR 16 SpO2 99 BP 113/71 General: well nourished, well-developed male in no acute respiratory distress who is nontoxic appearing, sitting up in bed. HEENT: Normocephalic. Atraumatic. Extraocular movement intact. Sclera clear and anicteric.No facial asymmetry. Chest: Lungs are clear to auscultation bilaterally. No wheezes or crackles. CV: Heart was regular rate and rhythm. Abd: Abdomen was soft. tender. Nondistended. Positive bowel sounds. Neuro: Patient is alert and oriented x4. Speech is clear. Objective Data Vital Signs Vital Signs: Vital Signs - 24 hr 11/25/24 14:30 11/25/24 14:45 11/25/24 14:55 Temperature Pulse Rate 63 79 62 Respiratory Rate 12 12 12 Blood Pressure 92/55 L 121/64 121/79 Pulse Oximetry 100 98 98 Oxygen Delivery Room Air Room Air Room Air 11/25/24 15:00 11/25/24 15:24 11/25/24 15:40 Temperature 97.7 F 97.7 F Pulse Rate 64 54 L 61 Respiratory Rate 12 18 16 Blood Pressure 117/59 L 118/72 113/69 Pulse Oximetry 98 99 99 Oxygen Delivery Room Air 11/25/24 16:19 11/25/24 18:00 11/25/24 20:11 Temperature 97.8 F 97.6 F 98.3 F Pulse Rate 57 L 62 81 Respiratory Rate 18 18 16 Blood Pressure 112/66 119/73 118/73 Pulse Oximetry 98 98 100 Oxygen Delivery 11/26/24 05:34 11/26/24 08:30 Temperature 97.9 F Pulse Rate 57 L Respiratory Rate 16 Blood Pressure 113/71 Pulse Oximetry 99 Oxygen Delivery Room Air Intake/Output Intake/Output: Intake & Output 11/23/24 11/24/24 11/25/24 11/26/24 23:59 23:59 23:59 23:59 Intake Total 0 2370 Balance 0 2370 Meds/Results Medications: Active Medications Generic Name Dose Route Start Last Admin Trade Name Freq PRN Reason Stop Dose Admin Acetaminophen 650 mg 11/25/24 15:04 Acetaminophen 325 Mg Tablet PO Q4H PRN Mild Pain (1-3) or Fever Hydrocodone Bitart/Acetaminophen 1 tab 11/25/24 15:04 11/26/24 13:24 Hydrocodone/Acetaminophen (*Crx) 5-325 Mg Tablet PO 1 tab Q4H PRN Administration Moderate Pain (4-6) Alfuzosin HCl 10 mg 11/25/24 21:00 11/26/24 00:07 Alfuzosin 10 Mg Er Tablet PO Not Given HS BRIANNA Baclofen 5 mg 11/26/24 14:00 Baclofen 5 Mg Tablet PO Q8HR BRIANNA Cyanocobalamin 500 mcg 11/28/24 09:00 Cyanocobalamin 500 Mcg Tablet PO QAM BRIANNA Fentanyl Citrate 25 mcg 11/25/24 13:26 11/25/24 14:55 Fentanyl Citrate Inj (*Crx) 100 Mcg/2 Ml Vial IV PUSH 25 mcg Q2M PRN Administration Pain Sodium Chloride 1,000 mls @ 125 mls/hr 11/25/24 13:05 11/26/24 09:32 Normal Saline Iv IV CONT 125 mls/hr .Q8H BRIANNA Administration Lactated Ringer's 1,000 mls @ 30 mls/hr 11/25/24 13:30 11/25/24 14:13 Lr - Lactated Ringers Iv IV CONT 30 mls/hr .Q24H BRIANNA Administration Lactated Ringer's 1,000 mls @ 30 mls/hr 11/25/24 13:30 11/25/24 17:07 Lr - Lactated Ringers Iv IV CONT Not Given .Q24H BRIANNA Morphine Sulfate 2 mg 11/25/24 13:02 Morphine Sulfate (*Crx) 2 Mg/Ml Inj IV PUSH Q2H PRN Pain Rated 7-10 Ondansetron HCl 4 mg 11/25/24 13:02 Ondansetron Inj 4 Mg/2 Ml Vial IV PUSH Q4H PRN Nausea Ondansetron HCl 4 mg 11/25/24 13:26 Ondansetron Inj 4 Mg/2 Ml Vial IV PUSH ONCE PRN Nausea Oxybutynin Chloride 2.5 mg 11/25/24 23:50 11/26/24 13:25 Oxybutynin Chloride 2.5 Mg Tab PO 2.5 mg TID BRIANNA Administration Oxycodone HCl 5 mg 11/25/24 13:26 Oxycodone Hcl (*Crx) 5 Mg Tab Ir PO ONCE PRN Pain Polyethylene Glycol 17 gm 11/27/24 09:00 Polyethylene Glycol 3350 17 Gm Powd.Pack PO QAM BRIANNA Senna/Docusate Sodium 1 tab 11/26/24 21:00 Senna/Docusate Sodium Tablet PO HS [facility] Radiology Results: ITS Impressions Abdomen/Pelvis CT 11/25/24 10:54 IMPRESSION: 1. Bilateral nephrolithiasis including a 3 mm stones in both the left and right ureters with mild right hydronephrosis is severe renal sinus fat. Correlate with urinalysis to exclude associated ascending urinary tract infection. Labs Labs: Laboratory Results - last 24 hr 11/26/24 05:07 WBC 6.6 RBC 5.50 Hgb 16.3 D Hct 48.5 MCV 88.2 MCH 29.6 MCHC 33.6 RDW 12.0 Plt Count 116 L MPV 10.5 H Immature Gran % (Auto) 0.5 Neut % (Auto) 89.4 H Lymph % (Auto) 6.6 L [place] % (Auto) 3.5 Eos % (Auto) 0.0 Baso % (Auto) 0.0 L Lymph # (Auto) 0.43 L [place] # (Auto) 0.2 Eos # (Auto) 0.0 Baso # (Auto) 0.0 Abs Immat Gran (auto) 0.03 Absolute Neuts (auto) 5.9 Absolute Nucleated RBC 0.000 Nucleated RBC % 0.0 Sodium 140 Potassium 4.2 Chloride 109 H Carbon Dioxide 24 Anion Gap 7 BUN 19 Creatinine 0.93 Estim Creat Clear Calc 118 Estimated GFR > 60 Glucose 110 Calcium 8.8 Iron 76 TIBC 315 % Saturation 24 Ferritin 53.00 Vitamin B12 172.0 L Folate 4.1 Quality VTE Prophylaxis VTE prophylaxis: mechanical ordered
[2024-11-26] MEDS: BACLOFEN 5 MG TABLET PO ×2 (14:32→21:08)
[2024-11-26] MEDS: SENNA/DOCUSATE SODIUM TABLET 1 TAB PO (21:08)
[2024-11-26 22:00] VITALS: BP 127/72; PULSE 67; RESP 20; TEMP 36.1; O2SAT 98
[2024-11-27] MEDS: SODIUM CHLORIDE 0.9% IV 1,000 ML 125 ML IV CONT (03:25)
[2024-11-27] MEDS: BACLOFEN 5 MG TABLET PO ×2 (05:51→12:37)
[2024-11-27 06:00] VITALS: BP 129/65; PULSE 62; RESP 20; TEMP 36.1; O2SAT 98
[2024-11-27] MEDS: oxyBUTYnin CHLORIDE 2.5 MG TAB PO ×2 (09:33→12:37)
[2024-11-27] MEDS: polyethylene glycoL 3350 17 GM POWD.PACK PO (09:33)
[2024-11-27 14:00] VITALS: BP 123/71; PULSE 72; RESP 16; TEMP 36.3; O2SAT 100
--- NOTE | 2024-11-27 14:08 | P.DS_ITS ---
DS: Admitting Diagnosis Discharge Date 11/27/2024 Admitting Diagnosis bilateral ureteral calculi DS: Discharge Diagnosis Discharge Diagnosis (1) Bilateral ureteral calculi: Code(s): N20.1 - Calculus of ureter Status: Acute DS: Summary Hospital Course Reason for hospitalization: bilateral ureteral calculi Hospital Course: 29-year-old male without a significant past medical history presents to the hosp ital for abdominal pain. Not meeting sepsis criteria. UA nonconcerning for infection. Abdomen/pelvis CT showing bilateral nephrolithiasis including a 3 mm stones in both the left and right ureters with mild right hydronephrosis is severe renal sinus fat. Urology consulted. Patient underwent right ureteroscopy with stone extraction and stent and left ureteroscopy with inability to reach stone and stent placement on 11/25/[address] Cool. Patient will need outpatient follow-up for left ureteroscopy, stone extraction, and stent management, plan for this in 1-2 weeks. Urology office to call patient to schedule appointment. Patient states understanding. Patient noted to have a B12 deficiency on labs. Given B12 IM x1 and started on daily supplementation. He will need outpatient follow-up with his primary care provider to continue to trend his B12 and monitor his anemia. Patient stated understanding. Patient had no complaints at time of discharge denying chest pain, shortness a breath, palpitations, nausea/vomiting, abdominal pain. He stated that he was ready for discharge at this time. Patient discharged home with family in a stable condition. He is to follow up with his primary care provider in 1 week and Urology as scheduled. Status at Discharge Functional status at discharge: independent ambulation Time Spent with Patient Time attestation: Total time spent providing and/or coordinating discharge services: Time spent: Greater than 30 minutes Exam Narrative: AF HR 72 RR 16 SpO2 100 BP 123/71 General: well nourished, well-developed male in no acute respiratory distress who is nontoxic appearing, sitting up in bed. HEENT: Normocephalic. Atraumatic. Extraocular movement intact. Sclera clear and anicteric.No facial asymmetry. Chest: Lungs are clear to auscultation bilaterally. No wheezes or crackles. CV: Heart was regular rate and rhythm. Abd: Abdomen was soft. Slightly tender, improved. Nondistended. Positive bowel sounds. Neuro: Patient is alert and oriented x4. Speech is clear. DS: Data Data Completed and Pending Completed studies during hospitalization: retrograde pyelogram abdomen/pelvis ct Pending studies at discharge: Pending at discharge 11/25/24 13:59 Surgical [PTH] Routine Discharge Plan Discharge Attending physician on discharge: Elie Byers Consulting providers: Brant Bender Discharging Clinician: Deanna Berg Anticipated Discharge Date/Time: 11/27/24 13:14 Patient Disposition: Home Activity: as tolerated Diet: as tolerated Discharge Instructions: Discharge disposition: Patient admitted to the hospital for kidney stones Underwent a right ureteroscopy with stone extraction and stent in left ureter scope be with stent placement on 11/[address] Cool Take medications as prescribed stent-related discomfort continue oxybutynin 5 mg 3 times daily muscle spasm continue baclofen 5 mg 3 times a day continue alfuzosin 0.4 mg daily can continue pain medications and Tylenol ibuprofen as needed can continue miralax and colace as needed for constipation Can add AZO p.r.n.. Will need outpatient follow-up for left ureteroscopy, stone extraction, and stent management in 1-2 weeks. Urology office will reach out to arrange this He has a urologist in [facility] he can also follow-up with if insurance is an issue with following Dr. Cool Eat well balanced meals and stay hydrated Keep active to remain strong Avoid use of diapers or pads Good eddi Care every 2 hours Trend urine output During admission patient was noted to be slightly anemic and found to have a B12 deficiency Received IM B12 supplementation was started on oral supplementation at discharge Patient follow-up with his primary care provider in terms of the B12 deficiency and to trend the labs Monitor blood pressures Take caution while standing, rising, or moving Change positions slowly taking a break between each position change If you standing feel dizzy sit back down and take a break Encouraged to continue with yearly vaccinations Return to the emergency department if he developed sudden shortness of breath, chest pain, nausea, vomiting, upset stomach or intractable diarrhea Return to the emergency department if you develop fever greater than 101.5 Follow-up with the primary care physician within 1-2 weeks Thank you for choosing [facility] for your healthcare needs Patient Instructions: Oxybutynin (By mouth), Hydrocodone/Acetaminophen (By mouth), Baclofen (By mouth), Vitamin B-12 (By mouth), Kidney Stones (DC), Percutaneous Nephrolithotomy (DC), Vitamin B12 Deficiency (ED), Ureteral Stent Placement (DC), Ureteroscopy (DC) Patient Language: Wallisian Stand Alone Forms: General Discharge Information Follow-up/Referrals: Brant Bender MD [Physician] - Call for Appointment Jerome,Boy San MD [Primary Care Provider] - 1 Week Discharge Medications: New cyanocobalamin (vitamin B-12) [Vitamin B-12] 500 mcg Tablet 500 mcg PO QAM Qty: 30 0RF baclofen 10 mg Tablet 5 mg PO Q8HR Qty: 12 0RF oxybutynin chloride 2.5 mg tablet 2.5 mg PO TID Qty: 12 0RF Continued alfuzosin 10 mg tablet extended release 24 hr 10 mg PO HS ondansetron 4 mg tablet,disintegrating 4 mg PO Q8H Qty: 14 0RF naproxen 500 mg tablet 500 mg PO BID PRN (Reason: pain) Qty: 20 0RF hydrocodone-acetaminophen 5-325 mg tablet 1 tablet PO Q8H PRN (Reason: pain) Qty: 14 0RF Date of admission: 11/25/24 14:43 Primary Care Provider: JeromeBoy Admitting Provider: Romel Fuchs Attending physician on admission: Deanna Berg Condition: Stable Hospitalist MIPS Heart Failure (Exclusion) Patient has history of Heart Transplant or Left Ventricular Assistive Device?: No IF YES, STOP HERE Heart Failure (Qualifier) Patient has current or prior documentation of LVEF less than or equal to 40%, or mod/servere depressed LVSF?: No IF NO, STOP HERE
== END 2024-11-27 15:00 | disposition home or self-care (01) | DRG 661 ==
LOC: ANHED 10:11 → ANH3MED 14:07
PROVIDERS: Nurse Practitioner Gerontology; Student in an Organized Health Care Education/Training Program; Urology; Admitting Provider Internal Medicine; Emergency Provider Emergency Medicine; PCP Internal Medicine; Visit Provider Student in an Organized Health Care Education/Training Program
PROC: 0T768DZ Dilation of Right Ureter with Intraluminal Device, Via Natural or Artificial Opening Endoscopic (ICD-10-PCS; CPT 52352; principal; 2024-11-25 13:30)
DX: N13.2 Hydronephrosis with renal and ureteral calculous obstruction (principal); N32.89 Other specified disorders of bladder; N17.9 Acute kidney failure, unspecified; D51.9 Vitamin B12 deficiency anemia, unspecified
CPT/HCPCS: 36415; 74176; 74420; 80048; 80053; 81001; 82365; 82607; 82728; 82746; 83540; 83550; 83690; 85025; 88300; 96365; 96375; 96376; 99285; A9270; C1758; C1769; C2617; G0378; J0696; J1100; J1885; J2003; J2250; J2405; J2704; J3010; J3420; J7030; J7120; Q9966

== ENCOUNTER 2024-12-29 08:04 | Outpatient (CLI) | payer OTHER, SELFPAY ==
--- NOTE | ~2024-12-29 | US_ITS ---
Limited ABDOMINAL ULTRASOUND (Doppler ultrasound interrogation techniques used as needed for this exa m.) Ordering provider: Apurva Spears APRN History: . possible gallstones . Comparison: None. FINDINGS: PANCREAS: Normal echotexture and size of the visualized portion. PORTAL VEIN: Hepatopedal flow demonstrated. LIVER: Normal size and echotexture. No focal hepatic lesions or perihepatic fluid collections are dena ntified. BILIARY DUCTS: No intra or extrahepatic biliary dilation. Common bile duct measures 3.9 mm in diamete r which is normal for patient's age. GALLBLADDER: Echogenic nonmobile foci are noted. Otherwise, No sludge, gallbladder wall thickening o r pericholecystic fluid. Wall thickness is 2.6 mm. Negative sonographic Ford's sign. RIGHT KIDNEY: Normal size. No hydronephrosis, solid renal mass, renal calculi or perinephric fluid co llections. No renal cysts. FREE FLUID: None visualized within the upper abdomen. IMPRESSION: Highly suggestive polyp of the gallbladder measuring 0.5 x 0.4 x 0.5 cm. Otherwise, normal limited ab dominal ultrasound. Reviewed, dictated and finalized at location A. IMPRESSION: Highly suggestive polyp of the gallbladder measuring 0.5 x 0.4 x 0.5 cm. Otherw ise, normal limited abdominal ultrasound.
--- OUTSIDE RECORDS SUMMARY | 2024-12-29 08:08 | XMS_ITS | Data Portability ---
Author Organization [facility], Main Office Address [address] [place] [address] Assessment No assessment recorded. Plan of Treatment Reminders Order Date Submit Date Provider Last Modified By Organization Details Last Modified Time Details Appointments None recorded. Lab CMP, serum or plasma 2024 025 [email or web address] [facility], [address], [place], [address], 5 16:15:18 CBC w/ auto diff 2024 025 [facility], [address], [place], [address], 5 16:15:18 lipid panel, serum 2024 025 [email or web address] [employer] [facility], [address], [place], [address], 5 16:15:18 T4, free, serum 2024 025 [email or web address] [facility], [address], [place], [address], 5 16:15:18 TSH, serum or plasma 2024 025 [email or web address] [facility], [address], [place], [address], 5 16:15:18 pancreatic elastase, stool 2023 024 [facility], [address], [place], [address], 4 10:08:25 CBC w/ auto diff 2023 024 [email or web address] [facility], [address], [place], [address], 4 10:08:26 inflammator y bowel disease Ab panel, serum 2023 024 [email or web address] [facility], [address], [place], [address], 4 03:31:58 C-reactive protein, quantitativ e, serum or plasma 2023 024 TOMMIE [facility], [address], [place], [address], 4 03:32:01 lipid panel, serum 2023 024 TOMMIE [facility], [address], [place], [address], 4 03:31:56 CMP, serum or plasma 2023 024 TOMMIE [facility], [address], [place], [address], 4 03:31:59 TSH, serum or plasma 2023 024 [email or web address] [facility], [address], [place], [address], 4 10:08:26 T4, free, serum 2023 024 [email or web address] [facility], [address], [place], [address], 4 10:08:26 testosteron e, total, serum 2022 023 [facility], [address], [place], [address], 3 11:09:41 urinalysis, dipstick 2022 023 [email or web address] [id number] [facility], [address] [facility] [address], [address], 3 09:39:57 Referral None recorded. Procedures None recorded. Surgeries None recorded. Imaging US, bladder 2022 023 [email or web address] [facility], [address] [facility] [address], [place], [address], 3 09:40:20 Medication Orders tadalafil 5 mg tablet 2022 023 [email or web address] [id number], [address], [place], [id number], 4 16:22:21 Augmentin 875 mg-125 mg tablet 2022 023 [address] [facility], [address], [place], [id number], 4 16:22:18 Patient TargetsNo targets recorded. Patient Instructions Encounter Date Encounter Id Patient Instructions Last Modified By Organization Details Last Modified Time 09/28/2023 [id number] risk assessment* [email or web address] Not availabl e 09/28/2023 16:49:56 INFLUENZA VACCIN E Next vaccination to be given fall of ____ TD/TDAP Patient will get at local pharmacy/health department COLORECTAL SCREENING recommended DEPRESSION SCREENING Negative BMI Overweight try to lose 10% of your body weight NUTRITION Eat Heart Healthy Diet PHYSICAL ACTIVITY Need more activity VISION Your next exam in: goes every 2 yrs ALCOHOL USE Occasional/Social Use TOBACCO USE non smoker SEXUALLY ACTIVE GLUCOSE SCREENING up to date LIPID SCREENING up to date [email or web address] Not available 09/28/2023 16:29:13 Adult health examination [...] with voice recognition software. Occasional wrong-word or ymynx-v-uyyb substitutions may have occurred due to the inherent limitations of voice recognition software. Read the chart carefully and recognize, using context, where substitutions have occurred. Set up with GI for evaluation of altered bowel function including some small amount of rectal bleeding. [email or web address] Not available 09/28/2023 16:49:31 04/13/2024 [id number] Follow-up for dyspepsia as well as increased urinary frequency all doing well. No need for additional blood work at this time. Consider possible GI referral. Follow Up: 6 Months Approximate Date: 10/10/2024 Portions of the record may have been created with voice recognition software. Occasional wrong-word or hwibs-f-vqyw substitutions may have occurred due to the inherent limitations of voice recognition software. Read the chart carefully and recognize, using context, where substitutions have occurred. [email or web address] Not available 04/13/2024 17:22:35 10/17/2024 [id number] Wellness evaluation risk assessment table. Follow-up for [...] with voice recognition software. Occasional wrong-word or wdruf-a-wmce substitutions may have occurred due to the inherent limitations of voice recognition software. Read the chart carefully and recognize, using context, where substitutions may have occurred. Created: Boy Cano M.D. 10.17.2024 04:19 PM [email or web address] Not available 10/17/2024 17:19:35 12/05/2024 [id number] Recurrent renal calculi bilaterally. Clinically stable at this time. Will continue on current Rx already has a follow-up appointment. Will be following up with Urology. Keep Appointment: Wed 04:00 PM [place] Portions of record are template driven. When necessary additional context will be provided. Additionally some portions have been created with voice recognition software. Occasional wrong-word or eegyy-p-qilv substitutions may have occurred due to the inherent limitations of voice recognition software. Read the chart carefully and recognize, using context, where substitutions may have occurred. Created: Boy Cano M.D. 12.05.2024 04:23 PM [email or web address] Not available 12/05/2024 17:23:59 Reason for Referral None Reported. Results Created Date Observation Date Name Description Value Unit Range Abnormal Flag Note LastModifiedBy Organization Detail LastModifiedTime 02/27/2002/26/2023 urina lysis , dipst ick Leukocytes (reference range: negative ugo/ l) Negati ve Not Available [facility] [address], [address], 02/26/2023 09:12:48 02/27/2002/26/2023 urina lysis , dipst ick Nitrite (reference rage: negative mg/dl) negati ve Not Available [facility] [address] [place] [address], [address], 02/26/2023 09:12:48 02/27/2002/26/2023 urina lysis , dipst ick Urobilinogen (reference range: 0.2-1 mg/dl) 0.2 Not Available [facility] [address] [place] [address], [address], 02/26/2023 09:12:48 02/27/20 23 02/26/2023 urina lysis , dipst ick Protein (reference range: negative mg/dl) Negati ve Not Available [facility] [address] [place] [address] [address], [place], [address], 02/26/2023 09:12:48 02/27/2002/26/2023 urina lysis , dipst ick pH (reference range: 5-7) 7.0 Not Available s_ [facility] [address], [place], [address], 02/26/2023 09:12:48 02/27/2002/26/2023 urina lysis , dipst ick Blood (reference range: negative Taz/ l) Negati ve Not Available [facility] [address], [place], [address], 02/26/2023 09:12:48 02/27/2002/26/2023 urina lysis , dipst ick Specific [place] (reference range: 1.005-1.030) 1.020 Not Available s _[facility] [address] [place] [address] [address], [place], [address], 02/26/2023 09:12:48 02/27/2002/26/2023 urina lysis , dipst ick Ketone (reference range: negative mg/dl) Negati ve Not Available [facility] [address] [place] [address] [address], [place], [address], 02/26/2023 09:12:48 02/27/2002/26/2023 urina lysis , dipst ick Bilirubin (reference range: negative mg/dl) Negati ve Not Available [facility] [address], [place], [address], 02/26/2023 09:12:48 02/27/2002/26/2023 urina lysis , dipst ick Glucose (reference range: negative mg/dl) Negati ve Not Available [facility] [address], [place], [address], 02/26/2023 09:12:48 02/27/20 23 02/26/2023 urina lysis , dipst ick Appearance Clear Not Available [facility] [address], [place], [address], 02/26/2023 09:12:48 02/27/20 23 02/26/2023 urina lysis , dipst ick Color Yellow Not Available [facility] [place] [address], [place], [address], 02/26/2023 09:12:48 10/08/19 24 10/13/2023 LIPID PANEL , STAND ERI cholesterol, total 146 mg/dL <200 normal Not Available [address] [place], [address], 10/13/2023 03:31:56 10/08/19 24 10/13/2023 LIPID PANEL , STAND ERI HDL cholesterol 41 mg/dL > or = 40 normal Not Available [address] [place], [address], 10/13/2023 03:31:56 10/08/19 24 10/13/2023 LIPID PANEL , STAND ERI triglyceride s 71 mg/dL <150 normal Not Available [address] [address] [place], [address], 10/13/2023 03:31:56 10/08/19 24 10/13/2023 LIPID PANEL [...] which is a valid ated novel metho anjelica perry accur acy than the Fried carlo keithat ion in the estim ation of LDL-C . Sue londono SS et al. MATT. 2013; 310(1 9): 2061- 2068 (http ://ed ucati on.Qu estCerevo. com/f aq/FA Q164) Not Available [facility] [address], [place], [address], 10/13/2023 03:31:56 10/08/19 24 10/13/2023 LIPID PANEL , STAND ERI chol/HDLC ratio 3.6 (calc ) <5.0 normal Not Available [facility] [address], [place], [address], 10/13/2023 03:31:56 10/08/19 24 10/13/2023 LIPID PANEL , STAND ERI non HDL cholesterol 105 mg/dL _(eb c) <130 normal For patie nts with diabe dm plus 1 major ASCVD risk facto r, treat ing to a non-H DL-C goal of <100 mg/dL (LDL- C of <70 mg/dL ) is consi dered a thera peuti c optio n. Not Available [facility] [address], [place], [address], 10/13/2023 03:31:56 10/08/1910/13/2023 INFLA MMATO RY BOWEL DISEA SE DIFFE RENTI ATION PANEL anca screen NEGATI VE negati ve ANCA Scree n inclu yonatan evalu ation for p-ANC A, c-ANC A and atypi eb p-ANC A. A posit kathleen ANCA scree n refle xes to saravanan and sukhjinder rn(s) , e.g., cytop lasmi c sukhjinder rn (c-AN [place]), perin uclea r sukhjinder rn (p-AN [place]), or atypi eb p-ANC [...] with Crohn 's disea se. Not Available [facility] [address] [place], [address], 10/13/2023 03:31:58 10/08/19 24 10/13/2023 INFLA MMATO [...] is (GPA, Wegen er's) . The perin uclea r BRITTANY slaughter rn, (p-AN [place]) is based large ly on autoa ntibo dy to myelo perox idase which serve s as the prima ry antig en. These autoa ntibo dies are prese nt in activ e disea se. Not Available [facility] [address] [place], [address], 10/13/2023 03:31:58 10/08/19 24 10/13/2023 INFLA MMATO RY BOWEL DISEA SE DIFFE RENTI ATION PANEL proteinase-3 antibody <1.0 ai <1.0 Value Inter preta tion <1.0 AI: No Antib yaneth Detec yimi >or=1 .0 AI: Antib yaneth Detec yiim Autoa ntibo dies to prote inase -3 (TN-3 ) are accep yimi as katelynn cteri stic for granu lomat osis with polya ngiit is (GPA, Wegen er's) , and are detec table in 95% of the histo logic ally prove n cases . The cytop dagoberto nathalia slaughter rn, (c-AN [place]), is based large ly on autoa ntibo dy to TN-3 which serve s as the prima ry antig en. These autoa ntibo dies are prese nt in activ e disea se. Not Available [facility] [address] [place], [address], 10/13/2023 03:31:58 10/08/19 24 10/13/2023 INFLA MMATO [...] cerev isiae . Not Available [facility] [address] [place], [address], 10/13/2023 03:31:58 10/08/19 24 10/13/2023 INFLA MMATO [...] to S cerev isiae . Not Available [address] [address] [place], [address], 10/13/2023 03:31:58 10/08/19 24 10/13/2023 COMPR EHENS KATHLEEN METAB OLIC PANEL , PLASM A glucose 85 mg/dL 65-99 normal Fasti ng refer ence inter cristofer Not Available [address] [address] [place], [address], 10/13/2023 03:31:59 10/08/19 24 10/13/2023 COMPR EHENS KATHLEEN METAB OLIC PANEL , PLASM A urea nitrogen (BUN) 20 mg/dL 7-25 normal Not Available [facility] [address], [address], 10/13/2023 03:31:59 10/08/19 24 10/13/2023 COMPR EHENS KATHLEEN METAB OLIC PANEL , PLASM A creatinine 0.96 mg/dL 0.60-1 .26 normal Not Available [facility] [address] [address], [place], [address], 10/13/2023 03:31:59 10/08/19 24 10/13/2023 COMPR EHENS KATHLEEN METAB OLIC PANEL , PLASM A eGFR 109 mL/mi n/1.7 3m2 > or = 60 normal Not Available [address], [address], 10/13/2023 03:31:59 10/08/19 24 10/13/2023 COMPR EHENS KATHLEEN METAB OLIC PANEL , PLASM A BUN/creatini ne ratio SEE NOTE: (calc ) 6-22 Not Repor yimi: BUN and Creat inine are withi n refer ence range . Not Available [address], [address], 10/13/2023 03:31:59 10/08/19 24 10/13/2023 COMPR EHENS KATHLEEN METAB OLIC PANEL , PLASM A sodium 142 mmol/ L 135-14 6 normal Not Available [address], [address], 10/13/2023 03:31:59 10/08/19 24 10/13/2023 COMPR EHENS KATHLEEN METAB OLIC PANEL , PLASM A potassium 3.7 mmol/ L 3.4-4. 8 normal Not Available [address], [address], 10/13/2023 03:31:59 10/08/19 24 10/13/2023 COMPR EHENS KATHLEEN METAB OLIC PANEL , PLASM A chloride 106 mmol/ L 98-110 normal Not Available [address], [address], 10/13/2023 03:31:59 10/08/19 24 10/13/2023 COMPR EHENS KATHLEEN METAB OLIC PANEL , PLASM A carbon dioxide 27 mmol/ L 20-32 normal Not Available [address], [address], 10/13/2023 03:31:59 10/08/19 24 10/13/2023 COMPR EHENS KATHLEEN METAB OLIC PANEL , PLASM A calcium 9.7 mg/dL 8.6-10 .3 normal Not Available [facility] [address], [address], 10/13/2023 03:31:59 10/08/19 24 10/13/2023 COMPR EHENS KATHLEEN METAB OLIC PANEL , PLASM A protein, total 6.9 g/dL 6.4-8. 4 normal Not Available [facility] [address], [address], 10/13/2023 03:31:59 10/08/19 24 10/13/2023 COMPR EHENS KATHLEEN METAB OLIC PANEL , PLASM A albumin 4.9 g/dL 3.6-5. 1 normal Not Available [address], [address], 10/13/2023 03:31:59 10/08/19 24 10/13/2023 COMPR EHENS KATHLEEN METAB OLIC PANEL , PLASM A globulin 2.0 g/dL_ (calc ) 2.2-4. 0 low Not Available [address], [address], 10/13/2023 03:31:59 10/08/19 24 10/13/2023 COMPR EHENS KATHLEEN METAB OLIC PANEL , PLASM A albumin/glob ulin ratio 2.5 (calc ) 0.9-2. 3 high Not Available [facility] [address], [address], 10/13/2023 03:31:59 10/08/19 24 10/13/2023 COMPR EHENS KATHLEEN METAB OLIC PANEL , PLASM A bilirubin, total 0.7 mg/dL 0.2-1. 2 normal Not Available [facility] [address], [address], 10/13/2023 03:31:59 10/08/19 24 10/13/2023 COMPR EHENS KATHLEEN METAB OLIC PANEL , PLASM A alkaline phosphatase 52 U/L 36-130 normal Not Available [address], [address], 10/13/2023 03:31:59 10/08/19 24 10/13/2023 COMPR EHENS KATHLEEN METAB OLIC PANEL , PLASM A AST 14 U/L 10-40 normal Not Available [address], [address], 10/13/2023 03:31:59 10/08/19 24 10/13/2023 COMPR EHENS KATHLEEN METAB OLIC PANEL , PLASM A ALT 14 U/L 9-46 normal Not Available [address], [address], 10/13/2023 03:31:59 10/08/19 24 10/13/2023 CBC (INCL UDES DIFF/ PLT) white blood cell count 4.3 thous and/u L 3.8-10 .8 normal Not Available [address], [address], 10/13/2023 03:32:00 10/08/19 24 10/13/2023 CBC (INCL UDES DIFF/ PLT) red blood cell count 4.65 elin on/uL 4.20-5 .80 normal Not Available [address], [address], 10/13/2023 03:32:00 10/08/19 24 10/13/2023 CBC (INCL UDES DIFF/ PLT) hemoglobin 13.8 g/dL 13.2-1 7.1 normal Not Available [address], [address], 10/13/2023 03:32:00 10/08/19 24 10/13/2023 CBC (INCL UDES DIFF/ PLT) hematocrit 41.5 % 38.5-5 0.0 normal Not Available [address], [address], 10/13/2023 03:32:00 10/08/19 24 10/13/2023 CBC (INCL UDES DIFF/ PLT) MCV 89.2 fL 80.0-1 00.0 normal Not Available [address], [address], 10/13/2023 03:32:00 10/08/19 24 10/13/2023 CBC (INCL UDES DIFF/ PLT) MCH 29.7 pg 27.0-3 3.0 normal Not Available [address], [address], 10/13/2023 03:32:00 10/08/19 24 10/13/2023 CBC (INCL UDES DIFF/ PLT) MCHC 33.3 g/dL 32.0-3 6.0 normal Not Available [address], [address], 10/13/2023 03:32:00 10/08/19 24 10/13/2023 CBC (INCL UDES DIFF/ PLT) RDW 12.4 % 11.0-1 5.0 normal Not Available [address], [address], 10/13/2023 03:32:00 10/08/19 24 10/13/2023 CBC (INCL UDES DIFF/ PLT) platelet count 216 thous and/u L 140-40 0 normal Not Available [address], [address], 10/13/2023 03:32:00 10/08/19 24 10/13/2023 CBC (INCL UDES DIFF/ PLT) MPV 11.0 fL 7.5-12 .5 normal Not Available [address], [address], 10/13/2023 03:32:00 10/08/19 24 10/13/2023 CBC (INCL UDES DIFF/ PLT) absolute neutrophils 2232 cells /uL 1500-7 800 normal Not Available [address], [address], 10/13/2023 03:32:00 10/08/19 24 10/13/2023 CBC (INCL UDES DIFF/ PLT) absolute lymphocytes 1686 cells /uL 850-39 00 normal Not Available [address], [address], 10/13/2023 03:32:00 10/08/19 24 10/13/2023 CBC (INCL UDES DIFF/ PLT) absolute monocytes 292 cells /uL 200-95 0 normal Not Available [address], [address], 10/13/2023 03:32:00 10/08/19 24 10/13/2023 CBC (INCL UDES DIFF/ PLT) absolute eosinophils 60 cells /uL 15-500 normal Not Available [address], [address], 10/13/2023 03:32:00 10/08/19 24 10/13/2023 CBC (INCL UDES DIFF/ PLT) absolute basophils 30 cells /uL 0-200 normal Not Available [address], [address], 10/13/2023 03:32:00 10/08/19 24 10/13/2023 CBC (INCL UDES DIFF/ PLT) neutrophils 51.9 % normal Not Available [address], [address], 10/13/2023 03:32:00 10/08/19 24 10/13/2023 CBC (INCL UDES DIFF/ PLT) lymphocytes 39.2 % normal Not Available [address], [address], 10/13/2023 03:32:00 10/08/19 24 10/13/2023 CBC (INCL UDES DIFF/ PLT) monocytes 6.8 % normal Not Available [address], [address], 10/13/2023 03:32:00 10/08/19 24 10/13/2023 CBC (INCL UDES DIFF/ PLT) eosinophils 1.4 % normal Not Available [facility] [address], [address], 10/13/2023 03:32:00 10/08/19 24 10/13/2023 CBC (INCL UDES DIFF/ PLT) basophils 0.7 % normal Not Available [address], [address], 10/13/2023 03:32:00 10/08/19 24 10/13/2023 C-DAFNE CTIVE PROTE IN C-reactive protein 0.8 mg/L <8.0 normal Not Available [address], [address], 10/13/2023 03:32:01 10/08/19 24 10/13/2023 T4, FREE T4, free 1.2 NG/dL 0.8-1. 8 normal Not Available [address], [address], 10/13/2023 03:32:02 10/08/19 24 10/13/2023 TSH TSH 1.28 mIU/L 0.40-4 .50 normal Not Available [address], [address], 10/13/2023 03:32:03 02/27/20 23 02/26/2023 , yoshi er No observ ation record ed. [email or web address] [facility] [place] [address], [place], [address], 03/01/2023 17:14:40 10/20/19 24 10/20/2023 CT, abdom en + pelvi s, w/ contr ast No observ ation record ed. [email or web address] [address] [facility], [place], [address], 10/20/2023 11:21:35 11/19/19 25 11/18/2024 CT, abdom en + pelvi s, w/o contr ast No observ ation record ed. [email or web address] [address] [facility], [place], [address], 11/20/2024 10:00:23 11/26/19 25 11/25/2024 CT, abdom en + pelvi s, w/ contr ast No observ ation record ed. [address] [facility], [place], [address], 11/25/2024 22:05:25 11/26/19 25 11/25/2024 XR, urogr am, retro grade No observ ation record ed. [address] [facility], [place], [address], 11/25/2024 22:06:02 Result Notes None recorded. Problems Name Problem SNOMED Code Status Onset Date Resolution Date Notes Provider Name and Address Organization Details Recorded Time Exercise-i nduced asthma 87112397 Active Not Available [employer] 3 16:14:41 Polyuria 70867468 Active 2022 Boy Cano MD [address], [place], [address] , [employer] 3 12:08:59 Orchitis and epididymit is 293573622 Active 2022 Boy Cano MD [address], [address], [place], [address] , [employer] 3 12:13:31 Increased frequency of urination 354335389 Active 2022 Ronald Mckenna NP [address], [address], [place], [address] , [facility] [place] [employer] [facility] 3 11:26:21 Kidney stone 56642976 Active 2022 Ronald Mckenna NP [address], [address], [place], [address] , [facility] 3 11:26:42 Prostatiti s 3492859 Active 2022 Ronald Mckenna NP [address], [address], [place], [address] , [facility] [employer] [facility] 3 11:27:03 Pain in testicle 07698483 Active 2022 Ronald Mckenna NP [address], [address], [place], [address] , [facility] [employer] [facility] 3 13:34:17 Constipati on 59380736 Active 2022 oRnald Mckenna NP [address], [address], [place], [address] , [facility] [employer] [facility] 3 13:35:03 Erectile dysfunctio n 473616599 Active 2022 Ronald Mckenna NP [address], [address], [place], [address] , [facility] [employer] [facility] 3 09:38:24 Lower urinary tract symptoms due to benign prostatic hypertroph y 5952753619220 1 Active 2022 Ronlad Mckenna NP [address], [address], [place], [address] , [facility] [employer] [facility] 3 09:39:22 Abnormal digestive tract function 04585685 Active 2023 Boy Cano MD [address], [address], [place], [address] , [facility] [employer] [facility] 4 16:44:09 Inflammato ry bowel disease 09464786 Active 2023 Boy Cano MD [address], [facility] [address], [place], [address] , [facility] [employer] [facility] 4 16:48:46 Fatigue 34739142 Active 2023 Boy Cano MD [address], [facility] [address], [place], [address] , [facility] [employer] [facility] 4 16:49:13 Problem Notes None recorded. Medical Equipment None Reported. [...] tablet TAKE 1 TABLET BY MOUTH EVERY 8 HOURS NEEDED FOR PAIN 12/05 completed Not Available Not Available Not Available tamsulosin 0.4 mg capsule TAKE 1 CAPSULE BY MOUTH DAILY 04/13 completed Not Available Not Available Not Available baclofen 10 mg tablet TAKE 1/2 A TABLET BY MOUTH EVERY 8 HOURS 12/05 completed Not Available Not Available Not Available ondansetron 4 mg disintegrat ing tablet DISSOLVE 1 TABLET ON THE TONGUE EVERY 8 HOURS 12/05 completed Not Available Not Available Not Available fluticasone propionate 50 mcg/actuati on nasal spray,suspe nsion 2 sprays each nostril daily 04/20 completed Not Available Not Available Not Available naproxen 500 mg tablet TAKE 1 TABLET BY MOUTH TWICE DAILY NEEDED FOR PAIN 12/05 completed Not Available Not Available Not Available [...] Updated DateTime 4 187.96 cm 28.1 kg/m2 35616.7 3 g 76 /min 97 [degF] 98 % 98 % 118 mm[Hg] 70 mm[Hg] Ryann Reza [employer] [facility] 4 16:22:04 Date Recorded Body height Body mass index (BMI) Body weight Heart rate Body temperature Oxygen saturation Oxygen saturation in Arterial blood by Pulse oximetry Systolic blood pressure Diastolic blood pressure Provider Name and Address Organization Details Last Updated DateTime 5 187.96 cm 29.5 kg/m2 774973. 25 g 80 /min 97 [degF] 99 % 99 % 120 mm[Hg] 62 mm[Hg] Ryann Reza [employer] [facility] 5 17:08:52 Date Recorded Body height Body mass index (BMI) Body weight Heart rate Body temperature Oxygen saturation Oxygen saturation in Arterial blood by Pulse oximetry Systolic blood pressure Diastolic blood pressure Provider Name and Address Organization Details Last Updated DateTime 5 187.96 cm 28.9 kg/m2 760879. 28 g 110 /min 97 [degF] 98 % 98 % 120 mm[Hg] 74 mm[Hg] Raynn Reza [employer] 5 17:19:07 Date Recorded Body height Provider Name an d Address Organization Details Last Updated DateTime 02/26/2023 187.96 cm Mercedes Cole MA [facility] [employer] 02/26/2023 09:09:05 Date Recorded Oxygen saturation Oxygen saturation in Arterial blood by Pulse oximetry Heart rate Body mass index (BMI) Body weight Body temperature Provider Name and Address Organization Details Last Updated DateTime 3 98 % 98 % 74 /min 28.2 kg/m2 31209.3 2 g 97.7 [degF] [facility] [employer] [facility] 3 09:20:18 Date Recorded Body height Body mass index (BMI) Body weight Heart rate Body temperature Oxygen saturation Oxygen saturation in Arterial blood by Pulse oximetry Systolic blood pressure Diastolic blood pressure Provider Name and Address Organization Details Last Updated DateTime 4 187.96 cm 28.1 kg/m2 47367.7 3 g 76 /min 97 [degF] 99 % 99 % 120 mm[Hg] 74 mm[Hg] Tiarra Malin [facility] [employer] [facility] 4 16:55:14 Social History Question Answer Notes LastModified by [employer] Details LastModified Time Tobacco Smoking Status Never Smoker THOMAS Leos, [facility] [employer] [facility] 12/28/2022 10:51:27 What Is Your Level Of Caffeine Consumption? Moderate Information not available 12/28/2022 Has Tobacco Cessation Counseling Been Provided? No Information not available 12/28/2022 Sex: Unknown Functional Status Question Answer Note LastModified by [employer] Details LastModified Time Do you use any illicit or recreational drugs? No Information not available 12/28/2022 Do you or have you ever used any other forms of tobacco or nicotine? No Information not available 12/28/2022 What is your level of alcohol consumption? None Information not available 12/28/2022 Mental Status None recorded. Family History Relationship [...] DISEASE/DISORDER N HISTORY OF DRUG ABUSE N COPD N RADIATION / CHEMOTHERAPY N Other # 2 N BLOOD DISEASES N EAR OR HEARING PROBLEMS N MUMPS N SHINGLES N DEPRESSION (INCLUDING POST ) N BOWEL PROBLEMS N FAILED BACK SYNDROME N STROKE/TIA N THYROID DISEASE N ULCERS N BENIGN PROSTATIC HYPERPLASIA N MEASLES N HYPOTENSION N MYOCARDIAL INFARCTION N OBESITY N GERD/NAUSEA N ANEURYSM N Increased Urination N URINARY/BLADDER/KIDNEY PROBLEMS N CORONARY ARTERY DISEASE (CAD) N Do you have Advance directive? N ADDICTION CONCERNS N Impotence N ENDOMETRIOSIS N USE OF BLOOD THINNERS N SKIN PROBLEMS N EMPHYSEMA N GASTROINTESTINAL DISORDER N PERIPHERAL VASCULAR DISEASE N MUSCLE,JOINT OR BONE PROBLEMS N GASTROINTESTINAL BLEEDING N BLOOD CLOTS N Difficulty Urinating N ASTHMA Y CATARACTS N Abdominal Pain N ERECTILE DYSFUNCTION N ARTERIAL INSUFFICIENCY N VARICOSITIES N GI PROBLEMS N Low Testosterone N INFERTILITY N AIDS/HIV N CHEMOTHERAPY / RADIATION N LIVER DISEASE N MALE HYPOGONADISM N HYPERTENSION N Deficiency N TOURETTE'S N ANXIETY DISORDER N BLOOD TRANSFUSION N ANEMIA/BLOOD DISORDER N CHRONIC EAR INFECTIONS N TUBERCULOSIS N GLAUCOMA N FOOT PROBLEM N DIVERTICULITIS N SLEEP APNEA N CHICKENPOX N BACK INJECTIONS N ALLERGIES/HAYFEVER N INFECTIOUS DISEASE N PROSTATE N HEART ARRHYTHMIA N INSOMNIA N ESRD N HIGH CHOLESTEROL / HYPERLIPIDEMIA N HYPERTHYROIDISM N EYE PROBLEMS N UTI N PVD N EDEMA N CHRONIC PAIN SYNDROME N HYPOTHYROIDISM N CONSTIPATION N CAROTID BLOCKAGE N BACK / NECK PROBLEMS N HAVE YOU BEEN HOSPITALIZED OR SEEN IN [facility] IN THE PAST YEAR ? N ATHEROSCLEROSIS [...] Brain Problems N HERPES N DEMENTIA N SEIZURES/EPILEPSY N HEADACHES/MIGRAINES N VASCULAR DISEASE N PACEMAKER N HEART MURMUR N DIZZINESS N KIDNEY DISEASE N HEART DISEASE/HEART PROBLEMS N MULTIPLE SCLEROSIS N NEUROPSYCHOLOGICAL N CARDIAC ARRHYTHMIA N CANCER: SPECIFY N ANESTHESIA COMPLICATIONS N Gall Stones N ATRIAL FIBRILLATION N PULMONARY EMBOLISM N AUTOIMMUNE DISEASE N Immunizations Vaccine Type Date Status Note Provider Nam e and Address Organization Details Recorded Time Influenza, split virus, quadrivalent, PF 04/20/2018 completed Not Available [employer] 16:15:21 Past Encounters Encounter ID Performer Location Encounter Start Date Encounter Closed Date Diagnosis/Indication Diagnosis SNOMED-CT Code Diagnosis ICD10 Code Diagnosis Note [id number] Boy Cano MD [facility] [place] Ernesto deleon [address] [facility] [place] [address] 09/22/2022 11:38:17 09/22/2022 12:22:11 Adult health examination 316177397 Z00.00 Depression screening 171 548401 Z13.31 Polyuria 54294330 R35.89 [id number] Ronald Mckenna NP [facility] [place] [address] [facility] [address] [place] [address] 12/28/2022 10:22:53 12/28/2022 11:29:54 Increased frequency of urination 845105447 R35.0 Limit bladder irritants. Will start Solifenaci n 5 mg daily. Medication administra tion, use, side effects discussed. Kidney stone 76649925 N2 0.0 Hx of stones and recently passed stone. Will get EDITA for structural evaluation and to ensure no other obstructin g stones present. UA today is negative for blood. I will call with results. Prostatitis 1375447 N41. 9 We discussed that pain at [...] weeks for re-evaluat ion. Pain in testicle 0842572 9 N50.819 We discussed that that diagnosis [...] improvemen t plan for scrotal US. Constipation 40337582 K5 9.00 Having some problems with BM's. Recommend OTC miralax. If remaining a problem f/u with pcp as constipati on can irritate/w orsen urinary symptoms. [id number] Ronald Mckenna NP [facility] [place] [address] [facility] [address] [place] [address] 01/25/2023 09:05:18 01/25/2023 09:43:45 Increased frequency of urination 660796679 R35.0 Holding on Solifenaci n at this time. Limit bladder irritants. Re-eval after abx. Kidney stone 41571234 N2 0.0 Negative EDITA. Prostatitis 7535256 N41. 9 We discussed that pain at [...] F/u in 4 weeks Pain in testicle 6372191 9 N50.819 We discussed that that diagnosis [...] scrotal US. 01/25/2023 Improved with abx. Constipation 67915020 K5 9.00 Having some problems with BM's. Recommend OTC miralax. If remaining a problem f/u with pcp as constipati on can irritate/w orsen urinary symptoms. [id number] Jamey Durant MD [facility] [place] [address] [facility] [address] [place] [address] 02/26/2023 09:03:11 02/26/2023 09:40:20 Increased frequency of urination 720586047 R35.0 limit bladder irritants Kidney stone 89955386 N2 0.0 Negative EDITA. Prostatitis 8660751 N41. 9 We discussed that pain at [...] Follow-up in three weeks. Pain in testicle 2806756 9 N50.819 We discussed that that diagnosis [...] 01/25/2023 Improved with abx. Erectile dysfunction 860 684267 F52.21 : -We reviewed the potential etiologies [...] tract symptoms due to benign prostatic hypertrophy 9066409568 9101 N40.1 Starting daily tadalafil to facilitate bladder emptying. Re-eval in three weeks. [id number] Boy Cano MD [facility] [place] [address] , [place] [address] 09/28/2023 16:13:23 09/28/2023 16:56:54 Adult health examination 013452672 Z00.00 Depression screening 171 596446 Z13.31 Abnormal d igestive tract function 00891874 R19.8 Screening for cardiovascular system disease 779191275 Z13.6 Inflammato ry bowel disease 51243785 K52.9 Fatigue 33926849 R53.83 [id number] Boy Cano MD [facility] Internal Med [address] , [place] [address] 04/13/2024 16:29:06 04/13/2024 17:25:55 Inflammatory bowel disease 81233062 K52.9 Increased frequency of urination 868975815 R35.0 [id number] Boy Cano MD [facility] [place] [facility] [address] [facility] [address] [place] [address] 10/17/2024 16:55:38 10/17/2024 17:25:55 Increased frequency of urination 764865200 R35.0 Kidney stone 62919512 N2 0.0 Adult heal th examination 401723237 Z00.00 [id number] Boy Cano MD [facility] [place] [address] [facility], [address] [place] [address] 12/05/2024 17:18:13 12/05/2024 17:45:38 Kidney stone 15934579 N20.0 Health Concerns Section Related Observation LastModified by Organization Detai ls LastModified Time None Recorded Concern Status LastModified by Organization Details LastModified Time None Recorded Advance Directives Directive None Recorded Payers Insurance Date Sequence Insurance Name Policy Number Policy Barrientos Covered Member ID Barrientos Member ID Guarantor Name 10/17/2024 1 [facility] Bhupendra Parikh [id number] Bhupendra Parikh 12/02/2024 1 [employer] [id number] Bhupendra Parikh [id number] Bhupendra Parikh 09/22/2022 1 [facility] [id number] Della Jl [id number] Bhupendra Parikh Notes Date Note Type Note Provider Name and Address Organization Details Recorded Time 02/26/2023 text/html 3Pmark sneed presents to the office today with [...] getting EDITA completed he ended up at [facility] where he passed his thrid stone. Since [...] or infectionPVR- 66cc Ronald Mckenna NP [address] [facility], [facility] [address], [place], [address], [place] - [employer] 02/26/2023 09:45:15 09/28/2023 text/html Patient Name: Desirae Roman Of Service: Wednesday ( 09.28.2023 ): 1995 [...] in good health Boy Cano MD [address] [facility] [address], [place], [address], [facility] [employer] 09/28/2023 16:50:01 04/13/2024 text/html Patient Name: Desirae [...] Systemic Symptoms:none Medication Reconciliation: from medication list. [id number]: CT abdomen and pelvis shows a 2 [...] 0.60-1.26 MG/DLEGFR 109 > OR = 60 ML/MIN/1.33E6ILRBZXNKY, TOTAL 0.7 0.2-1.2 MG/DLALKALINE PHOSPHATASE 52 36-130 U/LAST 14 10-40 U/LALT 14 9-46 U/LINFLAMMATORY BOWEL DISEASE DIFFERENTIATION PANEL Date: 10/08/2023NCA SCREEN NEGATIVE NEGATIVEMYELOPEROXIDASE ANTIBODY <1.0 <1.0 AIPROTEINASE-3 ANTIBODY <1.0 <1.0 AISACCHAROMYCES CEREVISIAE AB (ASCA) (IGG) 10.0 <=20.0 ULIPID PANEL, STANDARD Date: 10/08/2023HOLESTEROL, TOTAL 146 <200 MG/DLHDL CHOLESTEROL 41 > OR = 40 MG/DLTRIGLYCERIDES 71 <150 MG/DLLDL-CHOLESTEROL 89 MG/DL (CALC)T4, FREE Date: 10/08/2023T4, FREE 1.2 0.8-1.8 NG/DLTSH Date: 10/08/2023TSH 1.28 0.40-4.50 MIU/L Boy Cano MD [address] [facility], [facility] [address], [place], [address], [place] [facility] 04/13/2024 17:22:57 10/17/2024 text/html Patient Name: Desirae [...] Systemic Symptoms:none Medication Reconciliation: from medication list. [id number]: CT abdomen and pelvis shows a 2 [...] Significant Change In Family HxFall Risk normalPHQ-2 Ts;m40Ompxtghzbs Score: 0Hearing normalVisual normalReviewed Smoking and Drug [...] Information First Name Last Name Address Number [facility] Score: 9 Basic ADL Score: Bathing and [...] in good health Boy Cano MD [address] [facility], [facility] [address], [place], [address], [facility] [employer] 10/17/2024 17:23:12 12/05/2024 text/html Patient Name: Desirae Roman Of Service: Wednesday ( 12.05.2024 ): 1995 Age: 29 There has been approximately a 5 lb weight loss since 10/17/2024. This represents approximately a 2.2% change in weight. Weight change attributable to lifestyle changes. Vital Signs:Blood Pressure: Sitting Rt. Arm 120/74Pulse: Sitting 110 /min and RegularRespiratory Rate: 16Height 74 in or 1.9 mWeight 225 lb or 102.1 kgBMI 28.9Temperature: 97 F or 36.1 CPulse Oximetry: 98 % at rest on no oxygen Chief Complaint: Addressed in HPI Problems or conditions discussed in the HPI were the only ones reviewed during the encounter.Only social and family history addressed in the HPI were reviewed during this encounter. Attendant(s): NoneConstitutional and Systemic Symptoms:none Medication Reconciliation: from medication list. [id number]: CT abdomen and pelvis shows a 2 mm stone at the right UV junction no significant hydronephrosis. 11-18-2024: CT scan of abdomen and pelvis I suggested tiny stone in the left lower ureter with mild left ureteral fullness. Bilateral kidney stones noted. No evidence of appendicitis, diverticulitis or intestinal obstruction. 11-25-2024: CT scan of the abdomen and pelvis bilateral nephrolithiasis including a 3 mm stones in both the left and right ureters with mild right hydronephrosis. History of Present Illness #1. Follow-up from recent hospitalization for recurrent renal calculi. Clinically stable. Does have two ureteral stents and at this time. Clinically is doing well is afebrile. Medically speaking is doing fine. Still has one stone that is in a position where it needs to be further treated with lithotripsy later. Clinically stable otherwise.: Active Medication ListAlfuzosin Hydrochloride 10 MG TABLET, EXTENDED RELEASE One Hs Social HistoryDoes not smoke or drinkSexually activeBanking Family HistoryMother living 70 hx of breast cancerFather living 63 HTN, Dementia and refluxOne brother living and in good health Boy Cano MD [address] [facility], [facility] [address], [place], [address], [place] - [facility] [employer] 12/05/2024 17:24:22
--- OUTSIDE RECORDS SUMMARY | 2024-12-29 08:08 | XMS_ITS | Clinical Summary ---
Author Organization [facility] Address [address] [address] Phone Care Team Providers Care Chief Wharfinger Name Role Phone Unavailable Primary Care Provider Unavailabl e Allergies Active Allergy Reactions Criticality Noted Date Comments Lactose Diarrhea Low 12/06/2024 Medications tamsulosin (FLOMAX) 0.4 mg capsule Take 0.4 mg by mouth daily. Active cyanocobalamin 1,000 mcg Tablet Take 1,000 mcg by mouth daily. Active phenazopyridine 95 mg tablet Take 95 mg by mouth 3 times daily after meals. PRN Active HYDROcodone-acet aminophen (NORCO) 5-325 mg tablet Take 1 Tablet by mouth every 4 hours as needed for Pain, Moderate. Active ibuprofen (MOTRIN) 800 mg tablet Take 800 mg by mouth every 6 hours as needed for Pain, Mild. Active Encounters Date Type Department Care Team Description 12/12/2024 External Device Data STL ABSTRACTION Provider, Abstract 12/12/2024 External Device Data STL ABSTRACTION Provider, Abstract 12/11/2024 2:05 PM CDT Anesthesia Event [facility] Operating Room [address] [place] [address] Jacky Roa MD Trapp, Jacob S, AA-C 12/11/2024 1:12 PM CDT - 12/11/2024 2:35 PM CDT Surgery [facility] Operating Room [address] [place] [address] Matti Cox MD CYSTOURETHROSCOPY URETERAL STENT EXCHANGE 12/11/2024 11:26 AM CDT - 12/11/2024 5:35 PM CDT Hospital Encounter [facility] [address] [place] [address] Matti Cox MD Discharge Disposition: Home or Self Care 12/06/2024 Travel from Last 3 Months Social History Tobacco Use Types Packs/Day Years Used Date Smoking Tobacco: Never Tobacco Cessation:Counseling Given: Not Answered Alcohol Use Standard Drinks/Week Comments Not Currently 0 (1 standard drink = 0.6 oz pur e alcohol) Feeling Safe Answer Date Recorded Are you in a relationship wi th someone who hurts you emotionally and/or physically? Patient unable to answer 12/11/2024 Sex and Gender Information Value Date Recorded Sex Assigned at Not on file Legal Sex Male 12:22 PM CDT Gender Identity Not on file Sexual Orientation Not on file Last Filed Vital Signs Vital Sign Reading Time Taken Comments Blood Pressure 119/64 12/11/2024 5:18 PM CDT Pulse 89 12/11/2024 5:18 PM CDT Temperature 36.3 C (97.4 F) 12/11/2024 5:18 PM CDT Respiratory Rate 18 12/11/2024 5:18 PM CDT Oxygen Saturation 99% 12/11/2024 5:18 PM CDT Inhaled Oxygen Concentration - - Weight 99.7 kg (219 lb 14.4 oz) 025 12:11 PM CDT Height 188 cm (6' 2) 12/11/2024 12:11 PM CDT Body Mass Index 28.23 12/11/2024 12:11 PM CDT Plan of Treatment Health Maintenance Due Date Last Done Comments DTAP/TDAP/TD VACCINES (1 - Tdap) 01/10/2012 HEPATITIS B VACCINES (1 of 3 - 19+ 3-dose series) 01/10/2012 INFLUENZA VACCINE (#1) 2024 04/20/2018 HPV VACCINES Aged Out No longer eligi ble based on patient's age to complete this topic Medical Devices Explanted Type Area Client Relations Specialist Device Identifier Shelf Expiration Date Model / Serial / Lot Ureteral Stents Explanted:Qty: 2 on 12/11/2024 by Matti Cox MD at [facility] Bilateral: Ureter Procedures Procedure Name Priority Date/Time Associated Diagnosis Comments XR RETROGRADE PYELOGRM W WO KUB Routine 12/11/2024 2:29 PM CDT STONE ANALYSIS QUANTITATIVE Routine 12/11/2024 2:28 PM CDT ND ANES INSERT SUPRAGLOTTIC AIRWAY Routine 12/11/2024 2:12 PM CDT ND CYSTO W/URETEROSCOPY W/RMVL/MANJ STONES 12/11/2024 1:12 PM CDT n20.0 ND CYSTO W/SIMPLE REMOVAL STONE & STENT 12/11/2024 1:12 PM CDT n20.0 from Last 3 Months Results * XR RETROGRADE PYELOGRM W WO KUB (12/11/2024 2:29 PM CDT) Anatomical Region Laterality Modality Abdomen Computed Radiogr aphy 12/11/2024 2:29 PM CDT Impressions 12/12/2024 12:57 PM CDT IMPRESSION: Please see procedure note by the service performing the procedure for details. DICTATION LOCATION: Location [address] [place] [address] 12/12/2024 12:57 PM CDT PROCEDURE/EXAM(S): XR RETROGRADE PYELOGRM W WO KUB TIME/DATE: 12/11/2024 2:29 PM. CLINICAL INFORMATION & INDICATION: Male of 29 years age with history of renal calculi. COMPARISON STUDIES: CT abdomen and pelvis performed 08/14/2023. Fluoroscopy time: 0.1 minutes. REFERENCE AIR KERMA DOSE: 0.3 mGy FINDINGS: Fluoroscopy was provided for the Urology service and 2 fluoroscopic images were obtained for cystoscopy and left ureteroscopy with bilateral ureteral stent removal. A radiologist was not present for this procedure. Procedure Note Ramone Lewis MD - 12/12/2024 PROCEDURE/EXAM(S): XR RETROGRADE PYELOGRM W WO KUB TIME/DATE: 12/11/2024 2:29 PM. CLINICAL INFORMATION & INDICATION: Male of 29 years age with history of renal calculi. COMPARISON STUDIES: CT abdomen and pelvis performed 08/14/2023. Fluoroscopy time: 0.1 minutes. REFERENCE AIR KERMA DOSE: 0.3 mGy FINDINGS: Fluoroscopy was provided for the Urology service and 2 fluoroscopic images were obtained for cystoscopy and left ureteroscopy with bilateral ureteral stent removal. A radiologist was not present for this procedure. IMPRESSION: Please see procedure note by the service performing the procedure for details. DICTATION LOCATION: Location [address] [place] [address] Matti Cox MD DIAGNOSTIC IMAGING ORDERABLES F inal Result * STONE ANALYSIS QUANTITATIVE (12/11/2024 2:28 PM CDT) COMPOSITION OF KIDNEY STONE SEE NOTE 12/15/2024 12:51 AM CDT [facility] Comment: Calcium Oxalate Monohydrate (Whewellite) 95% Carbonate Apatite (Dahllite) 5% KIDNEY STONE WEIGHT 0.001 g 12/15/2024 12:51 AM CDT [facility] Comment: Formalin, surgical gel, tape adhesive or transport media interfere with the analytical procedure. Follow up testing with the UroRisk(R) Panel is suggested for affected samples, if clinically indicated. This test was developed and its analytical performance characteristics have been determined by [facility]. It has not been cleared or approved by the FDA. This assay has been validated pursuant to the CLIA regulations and is used for clinical purposes. Calculus CALCULUS SPECIMEN / Unknown Collection / Unknown 12/11/2024 2:28 PM CDT 12/12/2024 8:02 AM CDT Narrative [facility] - 12/15/2024 12:51 AM CDT Performing Organization Information: Site ID: [id number] Name: [facility], Address: [address] [place] [address] Director: Deyanira Henriquez MD,PhD,CHERELLE Matti Cox MD BODY FLUIDS AND STOOLS Final Re sult [facility] [phone] * ND ANES INSERT SUPRAGLOTTIC AIRWAY (12/11/2024 2:12 PM CDT) Narrative Troy Castelan AA-C - 12/11/2024 2:12 PM CDT Troy Castelan AA-C 12/11/2024 2:18 PM Airway Date/Time: 12/11/2024 2:12 PM Location: OR Plan: routine intubation Patient Identity Confirmed by: Verbally with patient and armband Airway: not difficult Staffing Performed: MAIL ORDER CLERK/CAA Authorized by: Jamey Cordero MD Performed by: Troy Castelan AA-C Indications and Patient Condition: Indications for Airway Management: Anesthesia Sedation Level: general anesthesia Preoxygenated: yes Patient Position: Sniffing Mask Difficulty Assessment: 1 - vent by mask Plan to extubate at end of case: Yes Final Airway Details: Final Airway Type: Supraglottic airway Final Supraglottic Airway: LMA Lubricant used: Yes LMA size: 5 Tube secured with: Tape Airway Seal Pressure (cm H2O): 20 Number of Attempts at Approach: 1 Additional Procedure Information: atraumatic and dentition unchanged Jamey Cordero MD PROCEDURE/MINOR SURGICAL ORDERA BLES Final Result from Last 3 Months Insurance [employer] [facility]
--- OUTSIDE RECORDS SUMMARY | 2024-12-29 08:08 | XMS_ITS | Clinical Summary ---
Author Organization [facility] Address [address] [place] [address] Phone Care Team Providers Care Cupola Charger Name Role Phone Boy Cano MD Primary Care Provider [phone] Kevin Javier MD Unavailable Allergies No known [...] Comments Blood Pressure 131/79 08/18/2023 8:32 AM QUALITY ASSURANCE CLERK Pulse 83 08/18/2023 8:32 AM QUALITY ASSURANCE CLERK Temperature 36.6 C (97.9 F) 08/18/2023 8:32 AM QUALITY ASSURANCE CLERK Respiratory Rate 14 08/18/2023 8:32 AM QUALITY ASSURANCE CLERK Oxygen Saturation 98% 08/18/2023 8:32 AM QUALITY ASSURANCE CLERK Inhaled Oxygen Concentration - - Weight 101.3 kg (223 lb 6.4 oz) 08/18/2023 8:32 AM QUALITY ASSURANCE CLERK Height 188 cm (6' 2) 08/18/2023 8:32 AM QUALITY ASSURANCE CLERK Body Mass Index 28.68 08/18/2023 8:32 AM QUALITY ASSURANCE CLERK Plan of Treatment Health Maintenance Due Date [...] patient's age to complete this topic Insurance [employer] Care Teams Cupola Charger Relationship Specialty Start Date End Date Boy Cano MD [address] [place] [address] [address] [place] [address] PCP - General Internal Medicine 08/18/23 Kevin Javier MD [address] [address] Consulting Physician Urological Surgery 08/18/23
== END 2024-12-29 08:05 | disposition home or self-care (01) ==
PROVIDERS: PCP Internal Medicine; Visit Provider Nurse Practitioner
DX: R93.2 Abnormal findings on diagnostic imaging of liver and biliary tract (principal)
CPT/HCPCS: 76705

== ENCOUNTER 2024-12-30 11:35 | Outpatient (CLI) | payer OTHER, SELFPAY ==
--- NOTE | ~2024-12-30 | US_ITS ---
Renal-Bladder ultrasound Clinical History: Renal stones Technique: Real-time sonographic imaging of the kidneys and urinary bladder was performed. Findings: The right kidney measures 11.9 cm in length and the left kidney measures 12.4 cm. There is no hydronephrosis or renal calculus identified. Renal cortical echogenicity is within normal limits. No renal mass lesion is identified. The urinary bladder is moderately distended at the time of this exam. No intraluminal echoes are iden tified. No abnormal wall thickening is seen. Impression: Unremarkable ultrasound of the kidneys and urinary bladder. Reviewed, dictated and finalized at location M. Impression: Unremarkable ultrasound of the kidneys and urinary bladder.
== END 2024-12-30 11:36 | disposition home or self-care (01) ==
LOC: MICIMG 11:36
PROVIDERS: PCP Internal Medicine; Visit Provider Urology
DX: Z87.442 Personal history of urinary calculi (principal)
CPT/HCPCS: 76770